=== PATIENT | male | born 1970 | race Caucasian/White ===

== ENCOUNTER 2018-11-20 16:04 | Inpatient (IN) ==
[2018-11-20] MEDS ORDERED: 0.9 % Sodium Chloride 1,000 ML IVC ONE (16:36)
[2018-11-20] MEDS ORDERED: Ondansetron 4 MG/2 ML VIAL IVP ONE (16:37)
--- NOTE | 2018-11-20 17:15 | Emergency Department Note ---
Disposition Clinical Impression: Elevated troponin, Dehydration, Hyponatremia, ROSIE (acute kidney injury) Disposition: Admitted As Inpatient Condition: Good Referrals: NONE,PCP [Primary Care Provider] - Forms: ED Satisfaction Letter Time of Disposition: 19:23 General Adult HPI - General Chief complaint: ED Nausea/Vomiting/Diarrhea Stated complaint: Stomach bug/ CP Time Seen by Provider: 11/20/18 16:35 Source: patient Mode of arrival: ambulatory Limitations: no limitations Nursing Notes Reviewed: Yes Vital Signs Reviewed: Yes - History of Present Illness HPI Narrative: Patient is a 48-year-old male with past medical history of atrial fibrillation with ablation now with a pacemaker/defibrillator and history of hypertension presents immersed department for 3 days of generalized body aches, chills as well as nonproductive cough. Patient states that he had episode of dry heaves today which was followed by episode of left-sided chest pain that he describes as a 4 out of 10 and aching. Pain Scale: 6 - Related Data Allergies Allergy/AdvReac Type Severity Reaction Status Date / Time No Known Allergies Allergy Verified 11/20/18 16:20 All systems ED: reviewed and negative except as stated. Review of Systems: As Per HPI Constitutional: Reports: chills, other (Body aches). Denies: fever Cardiovascular: Reports: chest pain, dyspnea on exertion. Denies: palpitations, edema, syncope Respiratory: Reports: cough, dyspnea. Denies: wheezes, hemoptysis Gastrointestinal: Reports: nausea. Denies: abdominal pain, vomiting, diarrhea, constipation Genitourinary: Denies: urgency, dysuria Musculoskeletal: Denies: back pain, neck pain Integumentary: Denies: rash Past Medical History - Past Medical History Attestation: Yes The following information was validated with the patient. Medical history: Reports: CHF, diabetes, hyperlipidemia, hypertension Psychiatric history: Reports: no psych history - Social History Smoking Status: Never smoker Smokeless Tobacco Status: No Alcohol use: Reports: none Drug use: Reports: none Physical Exam CONSTITUTIONAL: A&O X 3, in no apparent distress. Patient does look leads generally does not feel well this slightly clammy on exam. HEAD: Normocephalic; atraumatic EYES: PERRL, no scleral icterus NOSE: The nose is normal in appearance without rhinorrhea NECK: No JVD or distended neck veins RESP: Normal chest excursion with respiration; breath sounds clear and equal bilaterally; no wheezes, rhonchi, or rales CARD: Regular rhythm, without murmurs, rub or gallop ABD: Non-distended; non-tender, soft, without rigidity, rebound or guarding,no pulsatile mass CHEST: Pain on the left-sided chest. SKIN: Normal for age and race; warm and dry without diaphoresis ; no apparent lesions EXTREMITIES: Pulses are 2 plus and equal times 4 extremities, no peripheral edema or calf muscle pain - General Limitations: no limitations General appearance: alert, in distress Course Course Narrative: After further discussions with the patient he states that he is from [place] and he recently moved to [place], [place]. States as far as additional past medical history because he also has CHF but denies any history of any kidney disease. I discussed with the patient that his labs are showing signs of dehy dration as well as acute kidney injury. I discussed this troponin is also elevated at 0.09. States he continues to remain chest pain-free at this time. He got a liter of fluids and states his nausea has improved. I discussed with them that I spoke with the hospitalist on-call and he agreed to accept the patient for further management. Vital Signs Temperature 98.5 F 11/20/18 16:19 Pulse Rate 70 11/20/18 16:19 Respiratory Rate 18 11/20/18 16:19 Blood Pressure 95/68 11/20/18 16:19 O2 Sat by Pulse Oximetry 97 11/20/18 16:19 Temperature 98.5 F 11/20/18 16:33 Pulse Rate 70 11/20/18 16:44 Respiratory Rate 22 11/20/18 16:44 Blood Pressure 107/82 11/20/18 16:44 O2 Sat by Pulse Oximetry 92 11/20/18 16:44 Oxygen Delivery Oxygen Delivery Nasal Cannula Medical Decision Making - Medical Records Medical records reviewed: Yes I reviewed the patient's medical records. - Lab Data Lab results reviewed: Yes I reviewed the patient's lab results. Result diagrams: 11/20/18 16:46 11/20/18 16:46 Lab Results 11/20/18 11/20/18 Range/Units 16:46 16:46 WBC 12.8 H (4.3-11.1) K/mcL RBC 5.60 H (4.19-5.50) M/mcL Hgb 17.9 H (12.9-16.9) g/dL Hct 52.6 H (37.5-50.1) % MCV 93.9 (83.0-100.0) fL MCH 32.0 (28.0-33.3) pg MCHC 34.0 (31.6-35.5) g/dL RDW 12.7 (11.5-14.5) % Plt Count 122 L (140-400) K/mcL MPV 11.8 (9.4-12.4) fL Immature Gran % 0.6 (0-4) % Seg Neutrophils % 88.1 % Lymphocytes % 4.3 % Monocytes % 6.6 % Eosinophils % 0.0 % Basophils % 0.4 % Neutrophils # 11.3 H (1.6-8.9) K/mcL Lymphocytes # 0.6 (0.6-4.6) K/mcL Monocytes # 0.8 (0.0-1.3) K/mcL Eosinophils # 0.0 (0.0-0.6) K/mcL Basophils # 0.1 (0.0-0.2) K/mcL Platelet Estimate Slight Decrease L (Normal) Sodium 127 L (136-145) mEq/L Potassium 3.9 (3.5-5.1) mEq/L Chloride 94 L (98-107) mEq/L Carbon Dioxide 16 L (23-29) mEq/L BUN 47 H (6-20) mg/dL Creatinine 2.98 H (0.70-1.30) mg/dL Est GFR ( Amer) 28 L (> 60) Est GFR (Non-Af Amer) 23 L (> 60) BUN/Creatinine Ratio 16 (6-26) Glucose 135 H (70-105) mg/dL Calculated Osmolality 278 L (280-300) Calcium 9.6 (8.6-10.3) mg/dL Troponin I 0.09 H* (< 0.04) ng/mL - Radiology Data Radiology results reviewed: Yes I reviewed the patient's radiology results. Chest X-Ray 11/20/18 16:36 IMPRESSION: Cardiomegaly. No radiographic evidence of acute pulmonary disease. D/ / Malick Murphy / Malick Murphy Interpreting Provider: Malick Murphy - EKG Data EKG #1 EKG attestation: Yes I reviewed and interpreted this EKG. EKG results narrative: Patient's EKG done at 16:31 shows a paced rhythm at 70 bpm.
[2018-11-20] MEDS: Aspirin 81 MG TAB.CHEW PO SCH (17:36)
[2018-11-20 17:39] LABS: Basophils # 0.1 K/mcL (0.0-0.2); Basophils % 0.4 %; Hematocrit 52.6 % (37.5-50.1); Hemoglobin 17.9 g/dL (12.9-16.9); Immature Granulocytes % 0.6 % (0-4); Lymphocytes # 0.6 K/mcL (0.6-4.6); Lymphocytes % 4.3 %; Mean Corpuscular Volume 93.9 fL (83.0-100.0); Mean Platelet Volume 11.8 fL (9.4-12.4); Monocytes % 6.6 %; Neutrophils # 11.3 K/mcL (1.6-8.9); Platelet Count 122 K/mcL (140-400); Red Cell Distribution Width 12.7 % (11.5-14.5); Segmented Neutrophils % 88.1 %
[2018-11-20 17:40] LABS: Monocytes # 0.8 K/mcL (0.0-1.3)
[2018-11-20 17:56] LABS: Calcium 9.6 mg/dL (8.6-10.3); Potassium 3.9 mEq/L (3.5-5.1)
[2018-11-20 18:02] LABS: Troponin I 0.09 ng/mL (< 0.04)
[2018-11-20 18:11] LABS: Platelet Estimate Slight Decrease (Normal)
--- NOTE | 2018-11-20 18:37 | Emergency Department Note ---
Disposition Clinical Impression: Elevated troponin, Dehydration, Hyponatremia, ROSIE (acute kidney injury) Disposition: Admitted As Inpatient Condition: Good Forms: ED Satisfaction Letter General Adult HPI - General Chief complaint: ED Nausea/Vomiting/Diarrhea Stated complaint: Stomach bug/ CP Time Seen by Provider: 11/20/18 16:35 Source: patient Mode of arrival: ambulatory Limitations: no limitations - History of Present Illness Pain Scale: 6 - Related Data Allergies Allergy/AdvReac Type Severity Reaction Status Date / Time No Known Allergies Allergy Verified 11/20/18 16:20 Constitutional: Reports: chills, other (Body aches). Denies: fever Cardiovascular: Reports: chest pain, dyspnea on exertion. Denies: palpitations, edema, syncope Respiratory: Reports: cough, dyspnea. Denies: wheezes, hemoptysis Gastrointestinal: Reports: nausea. Denies: abdominal pain, vomiting, diarrhea, constipation Genitourinary: Denies: urgency, dysuria Musculoskeletal: Denies: back pain, neck pain Integumentary: Denies: rash Past Medical History - Past Medical History Medical history: Reports: CHF, diabetes, hyperlipidemia, hypertension Psychiatric history: Reports: no psych history - Social History Smoking Status: Never smoker Smokeless Tobacco Status: No Alcohol use: Reports: none Drug use: Reports: none Physical Exam - General Limitations: no limitations General appearance: alert, in distress Course Vital Signs Temperature 98.5 F 11/20/18 16:19 Pulse Rate 70 11/20/18 16:19 Respiratory Rate 18 11/20/18 16:19 Blood Pressure 95/68 11/20/18 16:19 O2 Sat by Pulse Oximetry 97 11/20/18 16:19 Temperature 98.5 F 11/20/18 16:33 Pulse Rate 70 11/20/18 16:44 Respiratory Rate 22 11/20/18 16:44 Blood Pressure 107/82 11/20/18 16:44 O2 Sat by Pulse Oximetry 92 11/20/18 16:44 Oxygen Delivery Oxygen Delivery Nasal Cannula Medical Decision Making - Lab Data Result diagrams: 11/20/18 16:46 11/20/18 16:46 Lab Results 11/20/18 11/20/18 Range/Units 16:46 16:46 WBC 12.8 H (4.3-11.1) K/mcL RBC 5.60 H (4.19-5.50) M/mcL Hgb 17.9 H (12.9-16.9) g/dL Hct 52.6 H (37.5-50.1) % MCV 93.9 (83.0-100.0) fL MCH 32.0 (28.0-33.3) pg MCHC 34.0 (31.6-35.5) g/dL RDW 12.7 (11.5-14.5) % Plt Count 122 L (140-400) K/mcL MPV 11.8 (9.4-12.4) fL Immature Gran % 0.6 (0-4) % Seg Neutrophils % 88.1 % Lymphocytes % 4.3 % Monocytes % 6.6 % Eosinophils % 0.0 % Basophils % 0.4 % Neutrophils # 11.3 H (1.6-8.9) K/mcL Lymphocytes # 0.6 (0.6-4.6) K/mcL Monocytes # 0.8 (0.0-1.3) K/mcL Eosinophils # 0.0 (0.0-0.6) K/mcL Basophils # 0.1 (0.0-0.2) K/mcL Platelet Estimate Slight Decrease L (Normal) Sodium 127 L (136-145) mEq/L Potassium 3.9 (3.5-5.1) mEq/L Chloride 94 L (98-107) mEq/L Carbon Dioxide 16 L (23-29) mEq/L BUN 47 H (6-20) mg/dL Creatinine 2.98 H (0.70-1.30) mg/dL Est GFR ( Amer) 28 L (> 60) Est GFR (Non-Af Amer) 23 L (> 60) BUN/Creatinine Ratio 16 (6-26) Glucose 135 H (70-105) mg/dL Calculated Osmolality 278 L (280-300) Calcium 9.6 (8.6-10.3) mg/dL Troponin I 0.09 H* (< 0.04) ng/mL Attestation Statement - Attestation Attestation: I examined this patient and my medical decision-making was reviewed with the Resident Physician. I agree with the documented findings, disposition and treatment plan as described except to the extent set forth below. 48 yearold male presents to the ED with complaints of NVD and has a history of CHF and cardaic ablation secondary to atrial fibrillation. Devi has new ROSIE and states that he does not aware of known kidney failure, devi also has has an elevated troponin and thrombocytopenia secondary to likely his CHF. Devi likely is moderatley dehydrated as evidence by his hyponatremia. WE will admit to medicine
[2018-11-20] MEDS ORDERED: GI Cocktail 40 ML EACH PO ONE (21:24)
[2018-11-20] MEDS ORDERED: Naloxone 0.4 MG/ML INJ IVP PRN (21:24)
--- NOTE | 2018-11-20 21:52 | Internal Med History&Physical ---
Date of Encounter: 11/20/18 Time of Encounter: 21:49 Internal Medicine - H&P: HPI Chief complaint: chest pain Admitted From: Home Plans for Post Hospital Care: Home History of present illness: Jorge Tineo Jr is a 48-year-old man who reports a history of hypertension, heart failure status post ICD and atrial fibrillation that required ablation currently on apixaban for anticoagulation who recently moved here from [place] and has been unable to establish follow-up healthcare. He comes into the emergency room complaining of 3 days of generalized body aches, nausea, vomiting and diarrhea. He has been unable to keep anything down over these past few days and has felt very fatigued and unable to take his medications. He states that today he now developed chest pain that was moderate in intensity but on the left side which gave him concern and so he came to the emergency room. He was found to have a s odium of 127, chloride 94, creatinine 2.98 and troponin elevation of 0.09. EKG showed paced rhythm with occasional PVCs. No prior records are available for review. He was given an antiemetic and fluids and is admitted for further observation. At this time he denies having chest pain and says he is just having some dry heaving. Past Med Surg Social Fam HX - Past Medical History Medical history: CHF, diabetes, hyperlipidemia, hypertension Psychiatric history: no psych history - Past Surgical History Additional surgical history: ablasion - Social History Smoking Status: Never smoker Smokeless Tobacco Status: No Alcohol use: none Drug use: none Internal Medicine - H&P: Meds Allergy/AdvReac Type Severity Reaction Status Date / Time No Known Allergies Allergy Verified 11/20/18 16:20 All Systems PM: A 10-system review of systems was performed and is negative for pertinent findings except as documented above in the HPI. Family history reviewed and found noncontributory. - Constitutional Vitals: Temp Pulse Resp BP Pulse Ox 98.2 F 67 18 116/78 94 11/20/18 21:45 11/20/18 21:45 11/20/18 21:45 11/20/18 21:45 11/20/18 21:45 Exam: Vitals: Reviewed General: Obese white man sitting up in bed in notable discomfort Skin: Warm and supple HEENT: Moist mucous membranes. No conjunctivae pallor. Neck: No lymphadenopathy. No JVD. No carotid bruits. No palpable thyroid. Chest: Normal thoracic expansion. Normal breath sounds. Clear to auscultation. Heart: Normal S1 & S2; rhythmic. No rubs or murmurs. Abdomen: oft and non-tender to palpation. No peritoneal reaction. Extremities: No clubbing, cyanosis. 1+ edema. No calf tenderness. Normal distal pulses. Neurological: Awake, alert and oriented to person, place and time. No focal deficits. Psych: Affect appropriate. Internal Med - H&P Results - Labs CBC & Chem 7: 11/20/18 16:46 11/20/18 16:46 Labs: Short CBC 11/20/18 Range/Units 16:46 WBC 12.8 H (4.3-11.1) K/mcL Hgb 17.9 H (12.9-16.9) g/dL Hct 52.6 H (37.5-50.1) % Plt Count 122 L (140-400) K/mcL Neutrophils # 11.3 H (1.6-8.9) K/mcL BMP 11/20/18 16:46 Sodium 127 L Potassium 3.9 Chloride 94 L Carbon Dioxide 16 L BUN 47 H Creatinine 2.98 H Glucose 135 H Calcium 9.6 Cardiac Enzymes 11/20/18 Range/Units 16:46 Troponin I 0.09 H* (< 0.04) ng/mL - Impressions ITS Impressions Chest X-Ray 11/20/18 16:36 IMPRESSION: Cardiomegaly. No radiographic evidence of acute pulmonary disease. D/ / Malick Murphy / Malick Murphy Interpreting Provider: Malick Murphy - Assessment and plan (1) ROSIE (acute kidney injury) Current Visit: Yes Status: Acute Assessment and plan: Secondary to volume loss from vomiting and diarrhea as well as reduced intake. Will replete with IV NS overnight given the hyponatremia/hypochloremia that is hypovolemic in origin presumably and recheck lytes in the morning. Hold ACEI/diuretics for now. (2) Dehydration Current Visit: Yes Status: Acute Assessment and plan: Noted on clinical exam and precursor to ROSIE. Volume resuscitation as stated above. If he has a diarrheal recurrence, will send stool studies. Anti-emetics prn ordered. (3) Elevated troponin Current Visit: Yes Status: Acute Assessment and plan: Posisbly secondary to demand, dehydration and ROSIE. Currently without overt signs of ischemia. His chest discomfort resolved without intervention, his EKG is not diagnostic and he currently remains comfortable. Will continue to trend troponins overnight, monitor on telemetry and reassess clinical condition. (4) Atrial fibrillation Current Visit: Yes Status: Acute Assessment and plan: S/p ablation. Remains on apixaban for anticoagulation. Currently rate controlle d. Monitor on telemetry. Qualifiers: Atrial fibrillation type: paroxysmal Qualified Code(s): I48.0 - Paroxysmal atrial fibrillation (5) Hypertension Current Visit: Yes Status: Acute Assessment and plan: Adequate values at this time. Will resume oral medications in the morning currently holding his diuretics/ACEI due to ROSIE. Qualifiers: Hypertension type: essential hypertension Qualified Code(s): I10 - Essential (primary) hypertension (6) Hyperuricemia Current Visit: Yes Status: Acute Assessment and plan: Deduced based on his taking colchicine and allopurinol as reviewed on his medication list. Will check level in the morning. Currently asymptomatic. (7) Heart failure Current Visit: Yes Status: Acute Assessment and plan: Reported and has an AICD. No signs of acute decompensation at this time. Will check TTE to assess EF and morphology. Resume BB/ACEI when feasible. Qualifiers: Heart failure type: unspecified Heart failure chronicity: chronic Qualified Code(s): I50.9 - Heart failure, unspecified - Time Spent With Patient Total time spent is greater than 50% in coordination of care (as documented) at patient's floor/unit and/or counseling patient: Greater than 35 minutes
[2018-11-20] MEDS: 0.9 % Sodium Chloride 1,000 ML IVC SCH (22:03)
[2018-11-20] MEDS: traMADol 50 MG TABLET PO PRN (22:03)
[2018-11-20] MEDS: Ondansetron 4 MG/2 ML VIAL IVP PRN (22:08)
[2018-11-21 01:33] LABS: Hematocrit 45.5 % (37.5-50.1); Hemoglobin 15.9 g/dL (12.9-16.9); Mean Corpuscular HGB Conc 34.9 g/dL (31.6-35.5); Mean Corpuscular Hemoglobin 32.6 pg (28.0-33.3); Mean Corpuscular Volume 93.4 fL (83.0-100.0); Mean Platelet Volume 11.9 fL (9.4-12.4); Platelet Count 99 K/mcL (140-400); Red Blood Count 4.87 M/mcL (4.19-5.50); Red Cell Distribution Width 13.1 % (11.5-14.5)
[2018-11-21 01:45] LABS: Heparin anti-factor XA UFH 0.07 IU/mL (0.30-0.70)
[2018-11-21 01:46] LABS: INR 1.1; Prothrombin Time 12.8 Seconds (9.4-12.1)
[2018-11-21 01:48] LABS: Activated Partial Thrombo Time 35.5 Seconds (26.0-36.0)
[2018-11-21 01:57] LABS: Calcium 8.7 mg/dL (8.6-10.3); Potassium 3.8 mEq/L (3.5-5.1)
[2018-11-21 02:11] LABS: Thyroid Stimulating Hormone 3.351 mcIU/mL (0.340-5.600)
[2018-11-21 02:33] LABS: Basophils # 0.2 K/mcL (0.0-0.2); Lymphocytes # 0.8 K/mcL (0.6-4.6); Monocytes # 0.3 K/mcL (0.0-1.3); Neutrophils # 6.6 K/mcL (1.6-8.9); Platelet Estimate Decreased (Normal)
[2018-11-21] MEDS: 0.9 % Sodium Chloride 1,000 ML IVC SCH (03:09)
[2018-11-21] MEDS: Acetaminophen 325 MG TABLET PO PRN ×2 (03:13→15:39)
[2018-11-21 05:27] LABS: Bilirubin,Urine Small (Negative); Blood,Urine Large (Negative); Clarity,Urine Cloudy (Clear); Color,Urine Dark Yellow (Yellow); Glucose,Urine (UA) Normal (Normal); Ketones,Urine Trace mg/dL (Negative); Leukocyte Esterase,Urine Negative (Negative); Nitrite,Urine Negative (Negative); PH,Urine 5.5 pH Units (5.0-8.0); Protein,Urine 100 mg/dL (Neg-Trace); Specific Gravity,Urine 1.015 (1.010-1.025); Urobilinogen,Urine Normal (Normal)
[2018-11-21 05:29] LABS: Bacteria,Urine None Seen per hpf (None-Few); Squamous Epithelial Cell,Urine Many per lpf (None-Few); WBC,Urine 15-30 per hpf (0-3)
[2018-11-21 05:39] LABS: RBC,Urine 30-50 per hpf (0-3)
[2018-11-21] MEDS ORDERED: Perflutren Lipid Microsphere 1.3 ML in 0.9 % Sodium Chloride 8.7 ML IVP ONE (07:11)
[2018-11-21] MEDS: traMADol 50 MG TABLET PO PRN ×2 (07:58→20:13)
[2018-11-21] MEDS: Apixaban 5 MG TABLET PO SCH ×2 (07:58→20:13)
[2018-11-21] MEDS: Aspirin 81 MG TAB.CHEW PO SCH (07:59)
--- NOTE | 2018-11-21 12:42 | Nephrology Consult Note ---
Addendum entered and electronically signed by Julian Coles MD 11/21/18 20:42: I examined this patient and my medical decision-making was reviewed with the Medical Student. I agree with the documented findings, disposition and treatment plan as described except to the extent set forth below. Patient in with ROSIE with unknown baseline likely related to prerenal azotemia vs. ATN from dehydration from gastroenteritis. The PMH, medications, FH, SH, PE and ROS as documented below. He was A&Ox 3 he had no edema and had no abdominal pain. A&P discussed and as below. ROSIE - need old labs. Await renal ultrasound. Continue with MIV. Elevated troponin per the primary team. Original Note: Date of Encounter: 11/21/18 Time of Encounter: 12:45 Assessment and Plan (1) ROSIE (acute kidney injury) Current Visit: Yes Status: Acute Acute kidney injury possibly secondary to dehydration with Creatinine 2.59 on 11/21/18 (from 2.98 on 11/20/18 upon admission), GFR 27 on 11/21/18 (from 23 on 11/20/18 upon admission), BUN 52 on 11/21/18 (from 47 on 11/20/18 upon admission), bicarb 17 11/21/18 (from 16 11/20/18 on admission). Repeat urinalysis in morning, add urine sodium and creatinine; renal ultrasound pending per hospitalist orders to rule out post-renal causes. (2) Dehydration Current Visit: Yes Status: Acute Patient noted to be dehydrated on clinical examination upon admission and has received 2L of IVF. Urine output noted at 50mL since admission. Continue monitoring I&O and renal function (3) Elevated troponin Current Visit: Yes Status: Acute Troponin trending 0.09->0.06->0.05 (4) Heart failure Current Visit: Yes Status: Acute Qualifiers: Heart failure type: unspecified Heart failure chronicity: chronic Qualified Code(s): I50.9 - Heart failure, unspecified (5) Hypertension Current Visit: Yes Status: Acute Patient noted to have PMH of HTN. Blood pressure noted to be 94/62 at 1042 11/21/18 s/p 2L IVF. Hospitalist holding FAVIOLA-I and diuretic due to ROSIE Qualifiers: Hypertension type: essential hypertension Qualified Code(s): I10 - Essential (primary) hypertension (6) Hyperuricemia Current Visit: Yes Status: Acute Uric acid noted at 13.0 on 11/21/18. Hospitalist is holding colchicine and allopurinol due to ROSIE/dehydration. (7) Hyponatremia Current Visit: Yes Status: Acute Na noted to be 129 on 11/21/18 s/p 2L NS improved from 127 upon admission on 11/20/18. (8) Atrial fibrillation Current Visit: Yes Status: Acute Qualifiers: Atrial fibrillation type: paroxysmal Qualified Code(s): I48.0 - Paroxysmal atrial fibrillation (9) Metabolic acidosis Current Visit: Yes Status: Acute Bicarb 17 on 11/21/18, increased from 16 on 11/20/18 upon admission, possibly due to ROSIE/dehydration. History of Present Illness - Reason for Consult Consult date: 11/21/18 Acute Kidney Injury Requesting physician: Margareth Bhatt - Chief Complaint Chest Pain - History of Present Illness Mr. Tineo is a 48 year old male presenting on hospital day 2 due to "chest pain" with PMH of CHF s/p AICD placement, diabetes, HLD, AFib s/p ablation, and HTN. Patient notes that he has had gastrointestinal symptoms of nausea w/ loss of appetite, vomiting and diarrhea along with fever, chills and body aches since Wednesday11/18/18, and when he started to have chest pain on Wednesday11/20/18 due to coughing from GI symptoms, he came to ED due to previous cardiac history. Patient has a previous renal history of kidney stones when he drank alcohol but "no other kidney problems as far as I know". He has noted inability to keep food or drink down for past few days and unable to take his medicine. He notes loss of appetite and that he felt "very dehydrated" when he was admitted, and noted first urination in "a long time" today (50mL void). Patient has received 2L of NS. Past Med Surg Social Fam HX - Past Medical History Medical history: CHF, diabetes, hyperlipidemia, hypertension Psychiatric history: no psych history - Past Surgical History Additional surgical history: ablation - Social History Smoking Status: Former smoker Smokeless Tobacco Status: No Alcohol use: none Drug use: none Occupational status: disabled - Family History Father Hx Family Cardiac Disorders: Yes (HTN, CABG, CAD) Hx Family Respiratory Disorders: Yes (SHAWN) Hx Family Endocrine Disorder: Yes (DM) Mother Hx Family Cardiac Disorders: Yes (HTN, AFib) Hx Family Musculoskeletal Disorders: Yes (Gout) Medications and Allergies Apixaban [Eliquis] 5 mg PO BID 11/20/18 [History] Carvedilol [Coreg] 25 mg PO BID 11/20/18 [History] Furosemide [Lasix] 40 mg DAILY 11/20/18 [History] Isosorbide MONOnitrate [Isosorbide Mononitrate ER] 60 mg DAILY 11/20/18 [History] Lovastatin 40 mg PO DAILY 11/20/18 [History] Metformin HCl [Glucophage] 1,000 mg PO BID 11/20/18 [History] Sacubitril/Valsartan 24/26 mg [Entresto 24 mg-26 mg Tablet] 1 tab PO BID [History] Spironolactone 25 mg PO DAILY 11/20/18 [History] Aspirin [Adult Aspirin Regimen] 81 mg PO DAILY 11/21/18 [History] Colchicine [Colcrys] 0.6 mg PO DAILY PRN 11/21/18 [History] Allergy/AdvReac Type Severity Reaction Status Date / Time No Known Allergies Allergy Verified 11/20/18 16:20 Review of Systems Constitutional: chills, fever(s) Cardiovascular: chest pain, no palpitations Gastrointestinal: abdominal pain, diarrhea, nausea, vomiting Genitourinary Male: no urinary frequency, no urinary hesitancy Exam - Vital Signs Vital signs: Initial Vital Signs Temp Pulse Resp BP Pulse Ox 98.5 F 70 18 95/68 97 11/20/18 16:19 11/20/18 16:19 11/20/18 16:19 11/20/18 16:19 11/20/18 16:19 Vital Signs - Last 8 Hours Temp Pulse Resp BP Pulse Ox 11/21/18 10:42 98.9 F 71 24 94/62 95 11/21/18 06:46 97.9 F 70 22 118/72 97 11/21/18 05:06 99 F 70 18 128/77 95 Intake and Output 11/20/18 11/21/18 11/21/18 23:59 07:59 15:59 Intake Total 1000 / 1000 1000 / 1000 Output Total 50 / 50 Balance 1000 / 1000 950 / 950 Intake: IV Fluids 1000 / 1000 1000 / 1000 0.9 % Sodium Chloride 1,000 ML 1000 / 1000 1000 / 1000 @ 200 mls/hr IVC .Q5H JAMILA Rx#: [id number] Output: Urine 50 / 50 Other: Weight 139.706 kg - General Appearance Exam: General: AAO, notably uncomfortable at time of exam HEENT: mucus membranes moist, no conjunctival pallor CV: RRR, no murmurs Resp: LCTAB, no accessory muscle use noted GI: soft and non-tender, no distension, no guarding. Bowel sounds present. Neuro: A&Ox3. No focal deficits Results - Lab Results 11/21/18 00:56 11/21/18 00:56 Most recent lab results Calcium 8.7 mg/dL (8.6-10.3) 11/21/18 00:56 Consult Discharge Plan - Plan Referrals: NONE,PCP [Primary Care Provider] -
--- NOTE | 2018-11-21 14:15 | Internal Med Progress Note ---
Hospitalist Progress Note - Encounter Date of Encounter: 11/21/18 Time of Encounter: 10:30 - Subjective Interval History: Patient is sitting up in chair. He is doing better as compared to yesterday. He continues to feel weak especially on attempted ambulation though He does state that he still continues to have diarrhea which overall is getting better in terms of the number of episodes but in terms of loose stools he is not getting any better. - Exam Vitals: Temp Pulse Resp BP Pulse Ox 98.9 F 71 24 94/62 95 11/21/18 10:42 11/21/18 10:42 11/21/18 10:42 11/21/18 10:42 11/21/18 10:42 Exam: GENERAL: Alert, no distress, cooperative EYES: PERRLA, EOMI EARS: External ears normal, canals clear OROPHARYNX: Lips, mucosa, and tongue normal. Teeth and gums normal. Oropharynx normal. NECK: No jugulovenous distention, No carotid bruits, Carotid pulse normal contour, Supple LUNGS: Lungs clear to auscultation, Good diaphragmatic excursion CARDIAC: Normal S1 and S2; no rubs, murmurs, or gallops ABDOMEN: Abdomen soft, non-tender, BS normal, No masses or organomegaly EXTREMITIES: Extremities normal, no deformities, edema, clubbing or skin discoloration. Good capillary refill., No ulcers NEURO: Gait not tested. Reflexes normal and symmetric. Sensation grossly intact, Cranial nerves II-XII intact PULSES: 2+ radial, 2+ carotid Rest of the exam is non contributory - Assessment and Plan (1) Elevated troponin Current Visit: Yes Status: Acute Assessment and Plan: Posisbly secondary to demand, dehydration and ROSIE. Currently without overt signs of ischemia. His chest discomfort resolved without intervention, his EKG is not diagnostic and he currently remains comfortable. Will continue to trend troponins overnight, monitor on telemetry and reassess clinical condition. 11/21-troponin has trended down. Denies any chest pain at this point. Continue to observe. Most likely from dehydration and acute renal failure. (2) Dehydration Current Visit: Yes Status: Acute Assessment and Plan: Noted on clinical exam and precursor to ROSIE. Volume resuscitation as stated above. If he has a diarrheal recurrence, will send stool studies. Anti-emetics prn ordered. 11/21 patient's dehydration is clinically improving. Volume resuscitation is helping and his renal function is improving. His diarrhea is also getting better in terms of volume and frequency but not so much in terms of content. I believe this is all secondary to a viral gastroenteritis but the patient is currently going through. We will continue to monitor closely (3) ROSIE (acute kidney injury) Current Visit: Yes Status: Acute Assessment and Plan: Secondary to volume loss from vomiting and diarrhea as well as reduced intake. Will replete with IV NS overnight given the hyponatremia/hypochloremia that is hypovolemic in origin presumably and recheck lytes in the morning. Hold ACEI/diuretics for now. 11/21-patient had severe acute renal failure on admission. He is now slowly improving as well as creatinine is concerned. We will consult nephrology for further input. He was on multiple medications can affect his kidneys including entrust her on faviola inhibitors as well as diuretics. All of these are on hold and his only blood pressure medication as a beta agustin. Continue to monitor creatinine. (4) Atrial fibrillation Current Visit: Yes Status: Acute Assessment and Plan: S/p ablation. Remains on apixaban for anticoagulation. Currently rate controlled. Monitor on telemetry. 11/21-rate controlled. Continue apixaban (5) Hypertension Current Visit: Yes Status: Acute Assessment and Plan: Adequate values at this time. Will resume oral medications in the morning currently holding his diuretics/ACEI due to ROSIE. (6) Hyperuricemia Current Visit: Yes Status: Acute (7) Heart failure Current Visit: Yes Status: Acute Assessment and Plan: Reported and has an AICD. No signs of acute decompensation at this time. Will check TTE to assess EF and morphology. Resume BB/ACEI when feasible. 11/21-awaiting final report of echo to better quantify the type of heart failure. Beta agustin has been resumed. FAVIOLA inhibitor on hold given acute renal failure (8) Diarrhea Current Visit: Yes Status: Acute Assessment and Plan: Most likely an acute viral gastroenteritis. Frequency of stooling without improving although the consistency is not. Continue hydration - Time Spent with Patient Total time spent is greater than 50% in coordination of care (as documented) at patient's floor/unit and/or counseling patient: 25 - 35 minutes Plan of Care Discussed with: patient Internal Medicine: Result - Labs CBC & Chem 7: 11/21/18 00:56 11/21/18 00:56 Labs: Short CBC 11/20/18 11/21/18 Range/Units 16:46 00:56 WBC 12.8 H 7.8 (4.3-11.1) K/mcL Hgb 17.9 H 15.9 D (12.9-16.9) g/dL Hct 52.6 H 45.5 (37.5-50.1) % Plt Count 122 L 99 L (140-400) K/mcL Neutrophils # 11.3 H 6.6 (1.6-8.9) K/mcL BMP 11/20/18 11/21/18 16:46 00:56 Sodium 127 L 129 L Potassium 3.9 3.8 Chloride 94 L 100 Carbon Dioxide 16 L 17 L BUN 47 H 52 H Creatinine 2.98 H 2.59 H Glucose 135 H 106 H Calcium 9.6 8.7 Cardiac Enzymes 11/20/18 11/21/18 11/21/18 Range/Units 16:46 00:56 06:31 Troponin I 0.09 H* 0.06 H* 0.05 H* (< 0.04) ng/mL Urine 11/21/18 Range/Units 05:00 Urine Color Dark Yellow (Yellow) Urine Clarity Cloudy A (Clear) Urine pH 5.5 (5.0-8.0) pH Units Ur Specific [place] 1.015 (1.010-1.025) Urine Protein 100 H (Neg-Trace) mg/dL Urine Glucose (UA) Normal (Normal) mg/dL - ABG Interpretation ABG results: PT/INR, D-dimer PT 12.8 Seconds (9.4-12.1) H 11/21/18 00:56 - Impressions Impressions Chest X-Ray 11/20/18 16:36 IMPRESSION: Cardiomegaly. No radiographic evidence of acute pulmonary disease. D/ / Malick Murphy / Malick Murphy Interpreting Provider: Malick Murphy Consult Discharge Plan - Plan Referrals: NONE,PCP [Primary Care Provider] - ___ (4) Atrial fibrillation Qualifiers: Atrial fibrillation type: paroxysmal Qualified Code(s): I48.0 - Paroxysmal atrial fibrillation (5) Hypertension Qualifiers: Hypertension type: essential hypertension Qualified Code(s): I10 - Essential (primary) hypertension (7) Heart failure Qualifiers: Heart failure type: unspecified Heart failure chronicity: chronic Qualified Code(s): I50.9 - Heart failure, unspecified (8) Diarrhea Qualifiers: Diarrhea type: infectious Qualified Code(s): A09 - Infectious gastroenteritis and colitis, unspecified
[2018-11-21 14:49] LABS: Estimated Average Glucose 126 mg/dl
--- NOTE | 2018-11-21 15:15 | Electrocardiograph Report ---
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
[2018-11-21] MEDS: Ondansetron 4 MG/2 ML VIAL IVP PRN (15:40)
[2018-11-22] MEDS: traMADol 50 MG TABLET PO PRN ×3 (03:27→19:47)
[2018-11-22] MEDS: Acetaminophen 325 MG TABLET PO PRN (03:27)
[2018-11-22] MEDS ORDERED: 0.9 % Sodium Chloride 500 ML IVC ONE (04:31)
[2018-11-22] MEDS ORDERED: 0.9 % Sodium Chloride 500 ML ONE (04:32)
[2018-11-22] MEDS ORDERED: 0.9 % Sodium Chloride 1,000 ML IVC ONE ×2 (05:52→11:00)
[2018-11-22 07:10] LABS: Chol/HDL Ratio 21.8 (0-4.9)
[2018-11-22 08:10] LABS: Acinetobacter baumannii by PCR Not Detected (Not Detect); Candida albicans by PCR Not Detected (Not Detect); Candida glabrata by PCR Not Detected (Not Detect); Candida krusei by PCR Not Detected (Not Detect); Candida parapsilosis by PCR Not Detected (Not Detect); Candida tropicalis by PCR Not Detected (Not Detect); Enterobacter cloacae Cmplx PCR Not Detected (Not Detect); Enterobacteriaceae by PCR Not Detected (Not Detect); Enterococcus by PCR Not Detected (Not Detect); Escherichia coli by PCR Not Detected (Not Detect); Klebsiella oxytoca by PCR Not Detected (Not Detect); Klebsiella pneumoniae by PCR Not Detected (Not Detect); Proteus by PCR Not Detected (Not Detect); Pseudomonas aeruginosa by PCR Not Detected (Not Detect); Serratia marcescens by PCR Not Detected (Not Detect); Staphylococcus aureus by PCR DETECTED (Not Detect); Staphylococcus by PCR Not Detected (Not Detect); Streptococcus agalactiae(B)PCR Not Detected (Not Detect); Streptococcus by PCR Not Detected (Not Detect); Streptococcus pneumoniae PCR Not Detected (Not Detect); Streptococcus pyogenes (A) PCR Not Detected (Not Detect); mecA Methicillin-Resist Gene Not Detected (Not Detect)
[2018-11-22] MEDS ORDERED: 0.9 % Sodium Chloride 1,000 ML ONE ×2 (08:50→11:25)
[2018-11-22] MEDS: Aspirin 81 MG TAB.CHEW PO SCH (08:55)
[2018-11-22] MEDS: Apixaban 5 MG TABLET PO SCH ×2 (08:55→19:43)
[2018-11-22] MEDS ORDERED: ceFAZolin 1,000 MG in Water for inj. (sterile) 20 ML 10 ML IVP SCH (09:00)
[2018-11-22] MEDS ORDERED: ceFAZolin 1,000 MG in Water for inj. (sterile) 20 ML 10 ML IVP ONE (09:20)
[2018-11-22 09:25] LABS: Basophils % 0.1 %; Hematocrit 39.5 % (37.5-50.1); Hemoglobin 13.5 g/dL (12.9-16.9); Immature Granulocytes % 0.4 % (0-4); Lymphocytes # 0.5 K/mcL (0.6-4.6); Lymphocytes % 6.3 %; Mean Corpuscular HGB Conc 34.2 g/dL (31.6-35.5); Mean Corpuscular Hemoglobin 32.6 pg (28.0-33.3); Mean Corpuscular Volume 95.4 fL (83.0-100.0); Mean Platelet Volume 12.3 fL (9.4-12.4); Monocytes # 0.8 K/mcL (0.0-1.3); Monocytes % 10.3 %; Neutrophils # 6.7 K/mcL (1.6-8.9); Red Blood Count 4.14 M/mcL (4.19-5.50); Red Cell Distribution Width 12.9 % (11.5-14.5); Segmented Neutrophils % 82.9 %
[2018-11-22 09:26] LABS: Platelet Count 74 K/mcL (140-400)
[2018-11-22] MEDS ORDERED: Aminoglycoside Consult 1 EACH MC ONE (09:30)
[2018-11-22 09:47] LABS: Calcium 8.1 mg/dL (8.6-10.3); Phosphorous 3.8 mg/dL (2.7-4.5)
[2018-11-22 09:50] LABS: Troponin I 0.05 ng/mL (< 0.04)
--- NOTE | 2018-11-22 10:03 | Internal Med Progress Note ---
Hospitalist Progress Note - Encounter Date of Encounter: 11/22/18 Time of Encounter: 10:00 - Subjective Interval History: His diarrhea is better today but he had a fever yesterday of 102, he has positive blood cultures and overall feels very weak. He does complain of right shoulder hurting him , thinks this is his gout and wants a cortisone shot. He a lso complains of acid reflux and would like something for it - Exam Vitals: Temp Pulse Resp BP Pulse Ox 98.9 F 65 18 103/66 93 11/22/18 08:35 11/22/18 09:58 11/22/18 09:58 11/22/18 09:58 11/22/18 09:58 Exam: GENERAL: Alert, moderate distress, appears uncomfortable, obese male EARS: External ears normal, canals clear OROPHARYNX: Lips, mucosa, and tongue normal. Poor dentition but no swelling around the jaws or gums. Pharynx looks normal NECK: No jugulovenous distention, No carotid bruits, Carotid pulse normal contour, Supple LUNGS: Lungs clear to auscultation, Good diaphragmatic excursion CARDIAC: Normal S1 and S2; no rubs, murmurs, or gallops ABDOMEN: Abdomen soft, non-tender, BS normal, No masses or organomegaly EXTREMITIES: Cracked feet no deformities, 1+ edema, clubbing or skin discoloration. Good capillary refill., No ulcers, right shoulder tenderness to palpation no surrounding erythema or swelling. NEURO: Gait not tested. Reflexes normal and symmetric. Sensation grossly intact, Cranial nerves II-XII intact PULSES: 2+ radial, 2+ carotid Rest of the exam is non contributory - Assessment and Plan (1) Sepsis associated hypotension Current Visit: Yes Status: Acute Assessment and Plan: Patient's blood cultures are +2 out of 2 for staph aureus not MRSA. The source is not identified at this point. 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 His last recorded blood pressure was in the 76/51 before he was evaluated by me early this morning. He was receiving a second fluid bolus at this time. his blood pre ssure has already responded and he is up to 103 systolic. He will receive a total of 3 L of fluid bolus . I have also started him on Ancef given the staph aureus in blood. The source is unclear at this point he does have an pacemaker/ICD in place but the site does not look tender to palpation. He does not endorse any chills the only other symptom that he has been having his diarrhea which according to him is responding and doing better in terms of frequency. He denies any abdominal pain and is not tender to palpation He does complain of some heartburn and we are prescribing him Tums as well as a PPI. I will check a 2-D echo for any vegetations given he is 2 out of 2 blood cultures positive and consult infectious disease. His lactic acid level was 1.1 but this was done after the first liter of bolus had already been given. We will continue to monitor him very closely. (2) Elevated troponin Current Visit: Yes Status: Acute Assessment and Plan: Posisbly secondary to demand, dehydration and ROSIE. Currently without overt signs of ischemia. His chest discomfort resolved without intervention, his EKG is not diagnostic and he currently remains comfortable. Will continue to trend troponins overnight, monitor on telemetry and reassess clinical condition. 11/21-troponin has trended down. Denies any chest pain at this point. Continue to observe. Most likely from dehydration and acute renal failure. 11/22-troponin repeated again due to hypotension and again is trending down. Most likely due to dehydration and acute renal failure. Now also could be infected because of his sepsis (3) Dehydration Current Visit: Yes Status: Acute Assessment and Plan: Noted on clinical exam and precursor to ROSIE. Volume resuscitation as stated above. If he has a diarrheal recurrence, will send stool studies. Anti-emetics prn ordered. 11/21 patient's dehydration is clinically improving. Volume resuscitation is helping and his renal function is improving. His diarrhea is also getting better in terms of volume and frequency but not so much in terms of content. I believe this is all secondary to a viral gastroenteritis but the patient is currently going through. We will continue to monitor closely 11/22-patient's diarrhea is improving but now he has sepsis most likely due to gram-positive cocci staph aureus. Continue aggressive hydration, antibiotics and continue to assess serial BMP (4) ROSIE (acute kidney injury) Current Visit: Yes Status: Acute Assessment and Plan: Secondary to volume loss from vomiting and diarrhea as well as reduced intake. Will replete with IV NS overnight given the hyponatremia/hypochloremia that is hypovolemic in origin presumably and recheck lytes in the morning. Hold ACEI/diuretics for now. 11/21-patient had severe acute renal failure on admission. He is now slowly improving as well as creatinine is concerned. We will consult nephrology for further input. He was on multiple medications can affect his kidneys including entrust her on faviola inhibitors as well as diuretics. All of these are on hold and his only blood pressure medication as a beta agustin. Continue to monitor creatinine. 11/22-his renal function is now worse at 3.92. Nephrology is on consult and I will discuss with them. He may need a biopsy especially considering that now he is also septic with bacteremia. I will await their decision. For now will continue for hydration (5) Atrial fibrillation Current Visit: Yes Status: Acute Assessment and Plan: S/p ablation. Remains on apixaban for anticoagulation. Currently rate co ntrolled. Monitor on telemetry. 11/21-rate controlled. Continue apixaban 11/22-rate control/paced. Continue apixaban (6) Hypertension Current Visit: Yes Status: Acute Assessment and Plan: Adequate values at this time. Will resume oral medications in the morning currently holding his diuretics/ACEI due to ROSIE. 11/22-right now hypotensive most likely from sepsis. Responding to fluids. We will continue to assess (7) Hyperuricemia Current Visit: Yes Status: Acute Assessment and Plan: Deduced based on his taking colchicine and allopurinol as reviewed on his medication list. Will check level in the morning. Currently asymptomatic. 11/22-patient has been complaining of right shoulder pain. Given his elevated uric acid and will try a steroid dose today. I will also check a right shoulder x-ray (8) Heart failure Current Visit: Yes Status: Acute Assessment and Plan: Reported and has an AICD. No signs of acute decompensation at this time. Will check TTE to assess EF and morphology. Resume BB/ACEI when feasible. 11/21-awaiting final report of echo to better quantify the type of heart failure. Beta agustin has been resumed. FAVIOLA inhibitor on hold given acute renal failure 11/22-LVEF is 35-40% on last echo with moderate global left ventricular systolic dysfunction. He also has mild concentric left ventricular hypertrophy. He does have normal right ventricular structure and function and no significant valvular dysfunction. We will be cautious with hydration but right now he needs it due his sepsis (9) Diarrhea Current Visit: Yes Status: Acute Assessment and Plan: Most likely an acute viral gastroenteritis. Frequency of stooling without improving although the consistency is not. Continue hydration 11/22-consistency is the same but frequency is improving. Continue hydration DVT Prophylaxis: Already anticoagulated - Time Spent with Patient Total time spent is greater than 50% in coordination of care (as documented) at patient's floor/unit and/or counseling patient: 50 minutes Plan of Care Discussed with: patient Internal Medicine: Result - Labs CBC & Chem 7: 11/22/18 09:14 11/22/18 09:14 Labs: Short CBC 11/22/18 Range/Units 09:14 WBC 8.1 (4.3-11.1) K/mcL Hgb 13.5 D (12.9-16.9) g/dL Hct 39.5 (37.5-50.1) % Plt Count 74 L (140-400) K/mcL Neutrophils # 6.7 (1.6-8.9) K/mcL BMP 11/22/18 09:14 Sodium 126 L Potassium 4.0 Chloride 98 Carbon Dioxide 15 L BUN 73 H Creatinine 3.92 H Glucose 131 H Calcium 8.1 L Cardiac Enzymes 11/22/18 Range/Units 09:14 Troponin I 0.05 H* (< 0.04) ng/mL Liver Function 11/22/18 Range/Units 09:14 Albumin 3.0 L (3.5-5.7) g/dL - ABG Interpretation ABG results: PT/INR, D-dimer PT 12.8 Seconds (9.4-12.1) H 11/21/18 00:56 - Impressions Impressions Echocardiogram 11/20/18 21:08 Impressions: LVEF 35-40%. Moderate global left ventricular systolic dysfunction. Mild concentric left ventricular hypertrophy. Indeterminate diastolic function. Moderately dilated left atrium. Normal right ventricular structure and function. No significant valvular dysfunction. No pulmonary hypertension. Left Ventricular Wall Motion: Rest Echo Findings The apex, apical inferior, mid inferior, basal inferior, apical anterior, mid anterior, basal anterior, apical septal, mid inferior septal, basal inferior septal, apical lateral, mid anterior lateral, basal anterior lateral, mid anterior septal, mid inferior lateral, basal anterior septal and basal inferior lateral brand were hypokinetic. Findings: Study Quality * Technically adequate exam. ECG Findings * Paced rhythm. Left Ventricle * LVEF 35-40%. * Normal LV chamber size. * Mild concentric left ventricular hypertrophy. * Moderate global left ventricular systolic dysfunction. * Indeterminate diastolic function. * Definity echo contrast was not used. Right Ventricle * Normal right ventricular structure and function. Left Atrium * Moderately dilated left atrium. Right Atrium * Normal right atrial size. Interatrial Septum * Interatrial septum not well evaluated. Aortic Valve * Aortic valve not well visualized. * No aortic stenosis. * Trace aortic regurgitation. Mitral Valve * Mitral valve not well visualized. * No mitral stenosis. * No mitral regurgitation. Tricuspid Valve * Tricuspid valve not well visualized. * No tricuspid stenosis. * Trace tricuspid regurgitation. * Estimated RVSP is 32 mmHg. * Estimated RA pressure is 3 mmHg. * No pulmonary hypertension. Pulmonic Valve * Pulmonic valve is not well visualized. * No pulmonic stenosis. * No pulmonic regurgitation. Aorta * Normally sized aortic root. Pericardium * The pericardium appears normal. IVC * Normal IVC dimensions and inspiratory collapse. Device lead * A device lead was visualized in the right atrium and right ventricle. Retroperitoneum Ultrasound 11/21/18 16:00 IMPRESSION: Normal sonographic appearance of the kidneys. Nondiagnostic evaluation of the urinary bladder due to decompression. D/ / 11/21/2018 19:21:47 Herb Whipple MD / arvin Interpreting Provider: Herb Whipple MD Consult Discharge Plan - Plan Referrals: NONE,PCP [Primary Care Provider] - (5) Atrial fibrillation Qualifiers: Atrial fibrillation type: paroxysmal Qualified Code(s): I48.0 - Paroxysmal atrial fibrillation (6) Hypertension Qualifiers: Hypertension type: essential hypertension Qualified Code(s): I10 - Essential (primary) hypertension (8) Heart failure Qualifiers: Heart failure type: unspecified Heart failure chronicity: chronic Qualified Code(s): I50.9 - Heart failure, unspecified (9) Diarrhea Qualifiers: Diarrhea type: infectious Qualified Code(s): A09 - Infectious gastroenteritis and colitis, unspecified
[2018-11-22] MEDS ORDERED: predniSONE 20 MG TABLET PO ONE (10:18)
--- NOTE | 2018-11-22 10:40 | Nephrology Progress Note ---
Date of Encounter: 11/22/18 Time of Encounter: 10:20 - Assessment and Plan (1) ROSIE (acute kidney injury) Current Visit: Yes Status: Acute Acute kidney injury with unknown baseline thought to be related to prerenal azotemia vs. ATN from dehydration due to gastroenteritis. Creatinine 3.92 on 11/22/18 (from 2.98 on 11/20/18 upon admission), GFR 17 on 11/22/18 (from 23 on 11/20/18 upon admission), BUN 73 on 11/22/18 (from 47 on 11/20/18 upon admission), bicarb 15 11/21/18 (from 16 11/20/18 on admission). Patient's ROSIE seems to be getting worse possibly due to sepsis (Staph aureus positive cultures in serology). Renal ultrasound was negative for hydronephrosis or lesions, normal echogenicity. Add 1 bag Sodium bicarb 150 in 1L D5, then continue NS fluid resuscitation as previous rate. (2) Dehydration Current Visit: Yes Status: Acute Patient noted to be dehydrated on clinical examination upon admission and has received 3.5L of IVF. Urine output back to normal per patient. Adding 150mEq sodium bicarb in 1L D5, then continue NS at previous rate. Continue monitoring I&O and renal function (3) Elevated troponin Current Visit: Yes Status: Acute (4) Heart failure Current Visit: Yes Status: Acute Qualifiers: Qualified Code(s): I50.9 - Heart failure, unspecified (5) Hypertension Current Visit: Yes Status: Acute Patient noted to have PMH of HTN. Blood pressure 103/66 at 0958 11/22/18. Continue holding FAVIOLA-I and diuretic. Qualifiers: Qualified Code(s): I10 - Essential (primary) hypertension (6) Hyperuricemia Current Visit: Yes Status: Acute Uric acid noted at 13.0 on 11/21/18. Hospitalist is holding colchicine and allopurinol due to ROSIE/dehydration. (7) Hyponatremia Current Visit: Yes Status: Acute Na noted to be 126 on 11/22/18 s/p 3.5L NS from 127 upon admission on 11/20/18. Continue monitoring sodium. (8) Atrial fibrillation Current Visit: Yes Status: Acute Qualifiers: Qualified Code(s): I48.0 - Paroxysmal atrial fibrillation (9) Metabolic acidosis Current Visit: Yes Status: Acute Bicarb 15 on 11/22/18, increased from 16 on 11/20/18 upon admission, possibly due to ROSIE/dehydration. Placing 1 bag Sodium bicarb 150 in 1L D5. (10) Sepsis associated hypotension Current Visit: Yes Status: Acute Patient was noted to have 2/2 blood cultures positive for Staph aureus, not MRSA. Site of infection possibly foot, consult podiatry. Primary team treating with cefazolin and fluid resuscitation. Subjective Principal diagnosis: Chest pain Interval history: Mr. Tineo is a 48 year old man seen bedside on hospital day 3 with ROSIE of unknown origin, dehydration, sepsis-related hypotension with PMH of CHF s/p AICD placement, diabetes, HLD, resolved AFib s/p ablation, gout and HTN. Patient notes that he has had "gout pain in my shoulder" that has started since admission in the hospital. He also notes that his diarrhea has become less frequent since admission and fluid resuscitation. He admits heartburn when he eats and still lack of appetite, but notes that his urination is back to normal (whereas his first urination since Wednesday was yesterday). He admits loss of stuart etite but denies fever, chills, nausea, vomiting, chest pain, palpitations, shortness of breath, abdominal pain, blood in stool, blood in urine, frothy urine, or burning on urination. Objective - Vital Signs Vital signs: Vital Signs Temp Pulse Resp BP Pulse Ox 11/22/18 09:58 65 18 103/66 93 11/22/18 09:00 76 18 84/55 93 11/22/18 08:35 98.9 F 70 18 76/51 93 11/22/18 06:50 98.4 F 70 22 92/59 92 11/22/18 04:39 98.1 F 69 26 72/44 95 11/22/18 04:00 97.9 F 70 26 78/49 90 11/22/18 00:00 99.5 F 68 30 99/63 97 11/21/18 19:35 99.6 F 64 20 93/60 96 11/21/18 16:37 99.2 F 11/21/18 15:19 102.0 F H 64 18 108/64 97 11/21/18 10:42 98.9 F 71 24 94/62 95 Intake and Output 11/21/18 11/22/18 11/22/18 23:59 07:59 15:59 Intake Total 1000 / 1000 500 / 500 Balance 1000 / 1000 500 / 500 Intake: IV Fluids 1000 / 1000 500 / 500 0.9 % Sodium Chloride 500 ML @ 500 / 500 999 mls/hr IVC .Q31M ONE Rx#: [id number] - General Appearance Exam: General: AAO, notably uncomfortable at time of exam HEENT: mucus membranes moist, no conjunctival pallor CV: RRR, no murmurs, S1 present, S2 present, no LE edema Resp: LCTAB, no accessory muscle use noted GI: soft and non-tender, no distension, no guarding. Bowel sounds present. Neuro: A&Ox3. No focal deficits - Lab 11/22/18 09:14 11/22/18 09:14 Most recent lab results Calcium 8.1 mg/dL (8.6-10.3) L 11/22/18 09:14 Phosphorus 3.8 mg/dL (2.7-4.5) 11/22/18 09:14 - Imaging Kidney/bladder ultrasound: report reviewed Consult Discharge Plan - Plan Referrals: NONE,PCP [Primary Care Provider] -
[2018-11-22] MEDS ORDERED: Sodium Bicarbonate 150 MEQ in D5% in Water 1,000 ML IVC SCH (11:00)
[2018-11-22 11:38] LABS: Triiodothyronine (T3) Free 2.15 pg/mL (2.50-3.90)
[2018-11-22 11:42] LABS: Triiodothyronine (T3) Total 0.46 ng/mL (0.87-1.78)
[2018-11-22] MEDS ORDERED: Albumin 25% 25gram/100mL 25 GM/100 ML IV.SOLN IVPB ONE (11:43)
--- NOTE | 2018-11-22 13:16 | Pulmonology Consult Note ---
<Herb Conner - Last Filed: 11/22/18 16:07> Date of Encounter: 11/22/18 Time of Encounter: 13:14 Assessment and Plan (1) Septic shock Current Visit: Yes Status: Acute - During admission has met 2/4 SIRS criteria with fever 102, WBC 12.8 on admission. Also strong possibility that this may be cardiogenic. - Suspect that leukocytosis however may be related to being intracascularly dry, has downtrended with fluids - Lactic acid this AM wnl at 1.1, however BP has been resistant to fluids thus far. - Suspected source: unclear. May be GI given symptoms, however GPC makes this less likely - Organism: MSSA on PCR. Positive blood cultures x2 on 11/21 - There is some suspicion for septic joint given pain, however this may be gout flare due to fluid shifts. ICD does not appear infected - Evidence of end organ damage with acute renal failure - Most recent BP has improved to 112 systolic during interview after albumin infusion - UA obtained on admission not suggestive of infection - Rapid Flu negative on 11/20/18 - CXR on 11/20/18 shows cardiomegaly with no acute process. - ID has been consulted. Plan - Transfer to ICU for further care - Albumin 25g as above - Continue 4th 1L bolus of NS for fluid resuscitation. patient remain clinically dry and suspect he can tolerate more fluids despite known hx of HFrEF - Will broaden abx to zosyn and give 1 dose of vancomycin - Await culture sensitivities - Echo ordered with no signs of vegetations. He will likely need LUIS prior to discharge - Repeat blood cultures tomorrow AM - Will obtain CT scan of chest, abdomen, pelvis. (2) ROSIE (acute kidney injury) Current Visit: Yes Status: Acute - Likely pre-renal in etiology secondary to shock - BUN/Cr of 73/3.92, worsened from admission - No hx of CKD - Patient still clinically dry - Nephro following - Urine studies pending Plan - Defer to nephro, appreciate input - Will attempt to rehydrate as able as above. (3) Atrial fibrillation Current Visit: Yes Status: Acute - Currently rate controlled - AC at home on eliquis - CHADVASC 3 (CHF, DM, HTN), HASBLED 1 (acute renal failure) Plan - Continue home carvedilol, eliquis (4) Diarrhea Current Visit: Yes Status: Acute - unclear if this is the source of infection or a result of the sepsis - Clinically, this appears to be a likely source, however positive blood cultures for gram positive cocci make this less likely. - Patient reports decreased episodes but still has loose BMs. - Will obtain CT scan as above to evaluate for abdominal pathology (5) Elevated troponin Current Visit: Yes Status: Acute - Elevated at 0.09 on admission - trended and adynamic. Likely related to demand ischemia No chest pain, EKG reviewed, ventricular paced. (6) Heart failure Current Visit: Yes Status: Chronic - Known HFrEF with most recent echo 11/21/18. EF 35-40%, moderate global dysfunciton. Indeterminate diastolic dysfunction. S/p ICD in 2006 - Does not appear to be in exacerbation - Continue home meds. (7) Hypertension Current Visit: Yes Status: Chronic borderline low. holding home FAVIOLA due to ROSIE, hypotension continue to monitor and add back anti-hypertensives as able. (8) Metabolic acidosis Current Visit: Yes Status: Acute bicarb noted to be 15 this AM - AG of 13 - Likely multifactorial including GI losses with ROSIE, possible sepsis - Lactic acid wnl at 1.1 - Will continue to monitor and treat underlying causes as above. (9) DVT prophylaxis Current Visit: Yes Status: Acute continue home eliquis History of Present Illness Consult date: 11/22/18 Requesting physician: Margareth Bhatt Reason for consult: other (shock) Chief complaint: Nausea, vomiting, diarrhea History of present illness: Mr. Tineo is a 48 year old male with past medical history of diabetes, heart fa ilure with reduced ejection fraction s/p ICD, hyperlipidemia, A. fib, hypertension. He originally presented to the emergency room with complaint of nausea, vomiting, generalized body aches and 11/20/18. Critical care was consulted on 11/22/18 for concerns for hypotension resistant to fluids. Patient states that his symptoms initially started 3 days prior to admission. He states that he has experienced a lot of fatigue and has been unable to keep anything down by mouth. He did initially have fevers before presentation. Emesis was watery with no blood. No changes in medication. His symptoms have gradually improved since admission however his blood pressure has remained borderline low despite fluid resuscitation. On presentation to the emergency room, but signs were significant for a blood pressure 95/68, otherwise within normal limits. Laboratory results were significant for WBC of 12.8, hemoglobin 17.9, hematocrit 52.6, platelets 122, sodium 127, chloride 94, BUNs/creatinine of 47/2.98. He denies any history of kidney disease. Troponin was also elevated at 0.09 and uric acid was elevated at 13.0. Chest x-ray shows cardiomegaly, otherwise no acute process. EKG shows ventricular pacing. Blood cultures were obtained and do have preliminary growth with presumed MSSA in PCR x2. He has received a total of 3L NS at time of consult with 4th liter going. He has been started on ancef for abx coverage. Nephrology has been consulted for ROSIE, presumed pre-renal in nature. Echocar diogram was obtained which showed consistent EF of 35-40% with indeterminate diastolic dysfunction. Patient has reported improvement in the number of stools per day, but is still experiencing loose stools without improvement. Still feels weak. Denies ear pains, rhinorrhea, congestion, neck pain, limited ROM of neck, chest pains, difficulty breathing, cough, abdominal pain, dysuria/frequency/urgency, rashes, numbness, tingling. Does admits to some nausea without vomiting, no bowel movements yet today, does have a sore throat. He also is complaining of a sore right shoulder. He states that he has gout which flare occasionally and takes colchicine. Denies OTC NSAIDs for pain relief. No joint replacements. ICD placed in 2006. No sick contacts. 3 dogs and 3 cats at home. PMHx as above. PSHx: ICD in 2006 social: former tobacco, heavy alcohol use, cocaine use. Quit all in 2006 Past Med Surg Social Fam HX - Past Medical History Medical history: CHF, diabetes, hyperlipidemia, hypertension Psychiatric history: no psych history - Past Surgical History Additional surgical history: ablation - Social History Smoking Status: Former smoker Smokeless Tobacco Status: No Alcohol use: none Drug use: none - Family History Father Hx Family Cardiac Disorders: Yes (HTN, CABG, CAD) Hx Family Respiratory Disorders: Yes (SHAWN) Hx Family Endocrine Disorder: Yes (DM) Mother Hx Family Cardiac Disorders: Yes (HTN, AFib) Hx Family Musculoskeletal Disorders: Yes (Gout) Medications and Allergies Apixaban [Eliquis] 5 mg PO BID 11/20/18 [History] Carvedilol [Coreg] 25 mg PO BID 11/20/18 [History] Isosorbide MONOnitrate [Isosorbide Mononitrate ER] 60 mg DAILY 11/20/18 [History] RX: Furosemide [Lasix] 40 mg DAILY 11/20/18 [History] RX: Lovastatin 40 mg PO DAILY 11/20/18 [History] RX: Metformin HCl [Glucophage] 1,000 mg PO BID 11/20/18 [History] RX: Spironolactone 25 mg PO DAILY 11/20/18 [History] Sacubitril/Valsartan 24/26 mg [Entresto 24 mg-26 mg Tablet] 1 tab PO BID 11/20/18 [History] Aspirin [Adult Aspirin Regimen] 81 mg PO DAILY 11/21/18 [History] Colchicine [Colcrys] 0.6 mg PO DAILY PRN 11/21/18 [History] Allergy/AdvReac Type Severity Reaction Status Date / Time No Known Allergies Allergy Verified 11/20/18 16:20 All Systems: The remainder of the systems were reviewed and are negative Review of Systems: - Constitutional: Admits to fevers, fatigue. Denies chills, weight loss - Head/Neck: Denies BOOKER, neck stiffness - EENT: admits to sore throat. Denies vision changes/blurriness, rhinorrhea, congestion, odynaphagia - CVS: Denies chest pain, palpitations, BABCOCK, orthopnea, edema, PND, - Pulm: Denies SOB, cough, sputum, hematemesis, wheezing - GI: admits to nausea, loose bowel movement. Denies abdominal pain, anorexia, vomiting, constipation, melena - : Denies dysuria, increased frequency, urgency, hematuria, - Heme: Denies ease of bleeding or bruising - MSK:admits to should pain. Denies other joint pain, limited ROM - Skin: Denies rashes, ulcers, color changes, - Neuro: Denies BOOKER, paresthesias, focal deficits, ataxia, Physical Examination Vital Signs: Vital Signs, Last 4 Hours Temp Pulse Resp BP Pulse Ox 11/22/18 11:40 70 78/43 11/22/18 11:25 72/35 11/22/18 11:09 97.4 F L 70 16 86/48 97 11/22/18 09:58 65 18 103/66 93 Gen.: Vitals noted. No acute distress. AAOx3, resting comfortably in bed. HEENT: PERRL/EOMI, oropharynx clear, Normocephalic, atraumatic, dry mucous membranes Neck: Supple. No adenopathy. No thyroid nodules. Full range of motion Cardiac: RRR, no murmur, +S1/S2, No BLE edema Pulmonary: CTA bilaterally, no wheezes, rales or rhonchi, equal chest expansion, unlabored breathing Abdomen: soft, nontender, BS noted, no guarding, no palpable HSM. Mildly distended. Tenses to palpation of epigastric region Back: Nontender throughout. Skin: warm and dry, no visible lesions. MSK: ROM intact, no joint swelling noted, gait no assessed while in bed. Non tender calf or clubbing Neuro: A&Ox3, moves all extremities, no focal deficits, sensation intact Psych: Appropriate mood and behavior, AOx3 Results - Laboratory Findings CBC and BMP: 11/22/18 09:14 11/22/18 09:14 PT/INR, D-dimer PT 12.8 Seconds (9.4-12.1) H 11/21/18 00:56 Abnormal lab findings: Abnormal lab results RBC 4.14 M/mcL (4.19-5.50) L 11/22/18 09:14 Plt Count 74 K/mcL (140-400) L 11/22/18 09:14 Band Neutrophils % 14.0 % (0-4) H 11/21/18 00:56 Lymphocytes # 0.5 K/mcL (0.6-4.6) L 11/22/18 09:14 Platelet Estimate Decreased (Normal) L 11/21/18 00:56 PT 12.8 Seconds (9.4-12.1) H 11/21/18 00:56 Heparin Anti-Xa, Unfract 0.07 IU/mL (0.30-0.70) L 11/21/18 00:56 Sodium 126 mEq/L (136-145) L 11/22/18 09:14 Carbon Dioxide 15 mEq/L (23-29) L 11/22/18 09:14 BUN 73 mg/dL (6-20) H 11/22/18 09:14 Creatinine 3.92 mg/dL (0.70-1.30) H 11/22/18 09:14 Est GFR ( Amer) 20 (> 60) L 11/22/18 09:14 Est GFR (Non-Af Amer) 17 (> 60) L 11/22/18 09:14 Glucose 131 mg/dL (70-105) H 11/22/18 09:14 Hemoglobin A1c 6.0 % (-5.6) H 11/21/18 00:56 Uric Acid 13.0 mg/dL (2.3-7.6) H 11/21/18 00:56 Calcium 8.1 mg/dL (8.6-10.3) L 11/22/18 09:14 Creatine Kinase 390 Units/L (30-223) H 11/21/18 00:56 Troponin I 0.05 ng/mL (< 0.04) H* 11/22/18 09:14 Albumin 3.0 g/dL (3.5-5.7) L 11/22/18 09:14 Triglycerides 386 mg/dL (< 150) H 11/22/18 05:39 VLDL Cholesterol, Calc 77 mg/dL (< 31) H 11/22/18 05:39 HDL Cholesterol 4 mg/dL (40-59) L 11/22/18 05:39 Cholesterol/HDL Ratio 21.8 (0-4.9) H 11/22/18 05:39 Free T3 2.15 pg/mL (2.50-3.90) L 11/22/18 10:46 Total T3 0.46 ng/mL (0.87-1.78) L 11/22/18 10:46 Urine Clarity Cloudy (Clear) A 11/21/18 05:00 Urine Protein 100 mg/dL (Neg-Trace) H 11/21/18 05:00 Urine Ketones Trace mg/dL (Negative) H 11/21/18 05:00 Urine Blood Large (Negative) H 11/21/18 05:00 Urine Bilirubin Small (Negative) H 11/21/18 05:00 Urine Microscopic RBC 30-50 per hpf (0-3) H 11/21/18 05:00 Urine Microscopic WBC 15-30 per hpf (0-3) H 11/21/18 05:00 Ur Squamous Epith Cells Many per lpf (None-Few) H 11/21/18 05:00 Staph aureus (PCR) DETECTED (Not Detect) A 11/21/18 16:07 - Microbiology Findings Microbiology Findings: Microbiology, Last 48 Hours 11/21/18 16:07 Blood Culture - Preliminary Peripheral Venipuncture Gram Positive Cocci 11/21/18 16:07 Blood Culture - Preliminary Peripheral Venipuncture Gram Positive Cocci 11/20/18 16:46 Influenza Types A,B Antigen - Final Nasopharyngeal - Clinical Findings Intake & Output: Intake & Output 11/21/18 11/22/18 11/22/18 23:59 07:59 15:59 Intake Total 1000 / 1000 500 / 500 120 / 120 Balance 1000 / 1000 500 / 500 120 / 120 Consult Discharge Plan - Plan Referrals: NONE,PCP [Primary Care Provider] - <John Lainez - Last Filed: 11/22/18 16:44> Date of Encounter: 11/22/18 All Systems: The remainder of the systems were reviewed and are negative Physical Examination Vital Signs: Vital Signs, Last 4 Hours Temp Pulse Resp BP Pulse Ox 11/22/18 16:12 97.8 F 74 17 94/54 96 Results - Laboratory Findings CBC and BMP: 11/22/18 09:14 11/22/18 09:14 PT/INR, D-dimer PT 12.8 Seconds (9.4-12.1) H 11/21/18 00:56 Abnormal lab findings: Abnormal lab results RBC 4.14 M/mcL (4.19-5.50) L 11/22/18 09:14 Plt Count 74 K/mcL (140-400) L 11/22/18 09:14 Band Neutrophils % 14.0 % (0-4) H 11/21/18 00:56 Lymphocytes # 0.5 K/mcL (0.6-4.6) L 11/22/18 09:14 Platelet Estimate Decreased (Normal) L 11/21/18 00:56 PT 12.8 Seconds (9.4-12.1) H 11/21/18 00:56 Heparin Anti-Xa, Unfract 0.07 IU/mL (0.30-0.70) L 11/21/18 00:56 Sodium 126 mEq/L (136-145) L 11/22/18 09:14 Carbon Dioxide 15 mEq/L (23-29) L 11/22/18 09:14 BUN 73 mg/dL (6-20) H 11/22/18 09:14 Creatinine 3.92 mg/dL (0.70-1.30) H 11/22/18 09:14 Est GFR ( Amer) 20 (> 60) L 11/22/18 09:14 Est GFR (Non-Af Amer) 17 (> 60) L 11/22/18 09:14 Glucose 131 mg/dL (70-105) H 11/22/18 09:14 Hemoglobin A1c 6.0 % (-5.6) H 11/21/18 00:56 Uric Acid 13.0 mg/dL (2.3-7.6) H 11/21/18 00:56 Calcium 8.1 mg/dL (8.6-10.3) L 11/22/18 09:14 Creatine Kinase 390 Units/L (30-223) H 11/21/18 00:56 Troponin I 0.05 ng/mL (< 0.04) H* 11/22/18 09:14 Albumin 3.0 g/dL (3.5-5.7) L 11/22/18 09:14 Triglycerides 386 mg/dL (< 150) H 11/22/18 05:39 VLDL Cholesterol, Calc 77 mg/dL (< 31) H 11/22/18 05:39 HDL Cholesterol 4 mg/dL (40-59) L 11/22/18 05:39 Cholesterol/HDL Ratio 21.8 (0-4.9) H 11/22/18 05:39 Free T3 2.15 pg/mL (2.50-3.90) L 11/22/18 10:46 Total T3 0.46 ng/mL (0.87-1.78) L 11/22/18 10:46 Urine Clarity Cloudy (Clear) A 11/21/18 05:00 Urine Protein 100 mg/dL (Neg-Trace) H 11/21/18 05:00 Urine Ketones Trace mg/dL (Negative) H 11/21/18 05:00 Urine Blood Large (Negative) H 11/21/18 05:00 Urine Bilirubin Small (Negative) H 11/21/18 05:00 Urine Microscopic RBC 30-50 per hpf (0-3) H 11/21/18 05:00 Urine Microscopic WBC 15-30 per hpf (0-3) H 11/21/18 05:00 Ur Squamous Epith Cells Many per lpf (None-Few) H 11/21/18 05:00 Staph aureus (PCR) DETECTED (Not Detect) A 11/21/18 16:07 - Microbiology Findings Microbiology Findings: Microbiology, Last 48 Hours 11/21/18 16:07 Blood Culture - Preliminary Peripheral Venipuncture Gram Positive Cocci 11/21/18 16:07 Blood Culture - Preliminary Peripheral Venipuncture Gram Positive Cocci 11/20/18 16:46 Influenza Types A,B Antigen - Final Nasopharyngeal - Clinical Findings Intake & Output: Intake & Output 11/22/18 11/22/18 11/22/18 07:59 15:59 23:59 Intake Total 500 / 500 120 / 120 Balance 500 / 500 120 / 120 - Attending Attestation I examined this patient and my medical decision-making was reviewed with the Resident Physician. I agree with the documented findings, disposition and treatment plan as described except to the extent set forth below. Patient seen and examined. Labs, radiology, chart personally reviewed. I was called by the hospitalist to evaluate this patient and he was seen in 2A Agree with resident's history and physical, assessment, plan with following comments: ART TRACER: Patient follows commands, but he is lethargic Pulmonary: Acceptable oxygenation and ventilation. With his congestive heart failure, we need to be careful with aggressive fluid resuscitation . I have reviewed CT chest personally and has multiple nodules am not sure if this is related to underlying disease, I doubt septic emboli will looks like this. I do not see any evidence of pneumonia. At this time patient keeping oxygen saturation in a reasonable place, however condition could deteriorate with fluid resuscitation. Cardiovascular: Patient with congestive heart failure I suspect this is more chronic and he may need LUIS to make sure this is not endocarditis and I do not feel strongly this is a cardiogenic shock especially with positive blood cultures and I still feel he is volume depleted and need gentle hydration. GI: Nutrition per dietary and GI prophylaxis per routine Heme: DVT prophylaxis per routine ID: Continue antibiotics and plan to de-escalation. Infectious disease consultation. Renal; urine out put and renal funtion reviewed. Nephrology has been seen the patient and she will need Nelson catheter for strict in and out Endorcine: blood glucose is monitored Lines: all lines checked and no evidence of infections Skin: skin care to prevent pressure ulcers per nursing routine care I spent 35 min of Critical Care time with this patient. It involved decision making of high complexity to assess, manipulate, and support vital organ system failure and/or to prevent further life threatening deterioration of the patient's condition. The time involved in the performance of separately reportable procedures was not counted toward critical care time.
[2018-11-22] MEDS ORDERED: Piperacillin/Tazobactam 3.375 GM in 0.9 % Sodium Chloride Mini Bag 100 ML IVPB SCH (16:00)
--- NOTE | 2018-11-22 16:07 | Infectious Disease Consult ---
Date of Encounter: 11/22/18 Time of Encounter: 16:02 Assessment and Plan (1) Septic shock Status: Acute Assessment and plan: Currently patient's blood pressures in the 70s over 40s Transferring to the ICU Likely secondary to infectious septic shock plus may be cardiogenic factors Check lactic acid (2) MSSA bacteremia Status: Acute Assessment and plan: Complicated (patient has pacemaker/AICD) Source of infection not clear; patient denies any cellulitis-like picture open wounds trauma. Patient has poor dentition which is unlikely to be the source TTE negative for obvious endocarditis Physical exam negative for endocarditis stigmata CT chest with multiple subcentimeter nodules (septic emboli?) Right shoulder pain (septic arthritis versus gout attack?) Recommendations: 1.Repeat blood cultures times 2 in the AM 2.Patient will need a LUIS 3.DC vancomycin 4.DC Zosyn 5.Start cefazolin 2 g every 12 hours (based on creatinine clearance measured by me at about 29) 6.Aggressive hydration (3) H/O cardiac pacemaker Status: Acute Assessment and plan: No obvious milagros infection on physical exam CT chest does not mention any stranding around the pacemaker any signs of infection TTE was negative (4) Diarrhea Status: Acute Assessment and plan: Continues to have watery bowel movements but they are less frequent Etiology not clear We will check C. difficile Aggressive hydration and electrolyte replacement Qualifiers: Diarrhea type: infectious Qualified Code(s): A09 - Infectious gastroent eritis and colitis, unspecified (5) ROSIE (acute kidney injury) Status: Acute Assessment and plan: Etiology not clear. Patient tells me he never had kidney issues before so not sure if this is an acute process or acute on chronic We will need to dose adjust antibiotics based on his creatinine clearance (6) Hyponatremia Status: Acute (7) CHF (congestive heart failure) Status: Acute Qualifiers: Heart failure type: unspecified Heart failure chronicity: chronic Qualified Code(s): I50.9 - Heart failure, unspecified (8) Atrial fibrillation Status: Acute Qualifiers: Atrial fibrillation type: paroxysmal Qualified Code(s): I48.0 - Paroxysmal atrial fibrillation Infectious Disease HPI - Data of Consult Patient: new to practice Consult date: 11/22/18 Requesting Physician: Cindy Bhatt Primary Care Provider: PCP NONE - Consult Narrative Reason for consult: Staph bacteremia from unclear source History of present illness: Mr. Tineo is a 48 year old male Patient is a 48-year-old gentleman who presented to [facility] on 11/20/2018 was chest pain. We are consulted on 11/22/2018 with MSSA bacteremia 2 out of 2 sets. Patient with long-standing history of of hypertension, also has congestive heart failure and has a history of pacemaker/AICD placed in [place] back in 2006 he states. Patient denies history of renal failure or renal insufficiency that he knows off. Patient denies history of diabetes. Denies having a heart attack or stroke in the past. Patient does have chronic gout. Patient was in the usual state of health until a day or 2 prior to admission when he started having intractable nausea vomiting and just diffuse pain. Patient denied any fevers or chills at home. Patient came into the hospital for evaluation. Since admission, MAXIMUM TEMPERATURE 102.0 Fahrenheit no tachycardia but he has tachypnea. Presenting labs WBC 12.8 with 88% neutrophils, BUN 47 creatinine 2.986. Urinalysis is not impressive urine culture 2 out of 2 sets on 05/21/2019 are positive for MSSA bacteremia. CT abdomen and pelvis and lungs 11/21/2018: Multiple solid and some solid subcentimeter pulmonary nodules. Mediastinal adenopathy likely reactive and splenomegaly. Echocardiogram obtained on this admission revealed left ventricular ejection fraction of 35-40% moderate global left ventricular systolic dysfunction. Moderately dilated left atrium. Normal right ventricle structure and function. No significant valvular dysfunction and no pulmonary hypertension. Currently patient appears ill. Having a hard time moving. He is hypotensive but he still there and oriented. Patient also was in atrial fibrillation. Patient denies any headache. Denies any chest pain or shortness of breath. He does admit to right shoulder pain. Denies any nausea or vomiting. Continues to have diarrhea but has significantly improved. Denies any urinary symptoms. Patient also denies history of tobacco use, EtOH abuse or IV drug use. CC: Cindy Bhatt Past Med Surg Social Fam HX - Past Medical History Medical history: CHF, diabetes, hyperlipidemia, hypertension Psychiatric history: no psych history - Past Surgical History Additional surgical history: ablation - Social History Smoking Status: Former smoker Smokeless Tobacco Status: No Alcohol use: none Drug use: none - Family History Father Hx Family Cardiac Disorders: Yes (HTN, CABG, CAD) Hx Family Respiratory Disorders: Yes (SHAWN) Hx Family Endocrine Disorder: Yes (DM) Mother Hx Family Cardiac Disorders: Yes (HTN, AFib) Hx Family Musculoskeletal Disorders: Yes (Gout) Infectious Disease-CN:Meds Apixaban [Eliquis] 5 mg PO BID 11/20/18 [History] Carvedilol [Coreg] 25 mg PO BID 11/20/18 [History] Isosorbide MONOnitrate [Isosorbide Mononitrate ER] 60 mg DAILY 11/20/18 [History] RX: Furosemide [Lasix] 40 mg DAILY 11/20/18 [History] RX: Lovastatin 40 mg PO DAILY 11/20/18 [History] RX: Metformin HCl [Glucophage] 1,000 mg PO BID 11/20/18 [History] RX: Spironolactone 25 mg PO DAILY 11/20/18 [History] Sacubitril/Valsartan 24/26 mg [Entresto 24 mg-26 mg Tablet] 1 tab PO BID 11/20/18 [History] Aspirin [Adult Aspirin Regimen] 81 mg PO DAILY 11/21/18 [History] Colchicine [Colcrys] 0.6 mg PO DAILY PRN 11/21/18 [History] Allergy/AdvReac Type Severity Reaction Status Date / Time No Known Allergies Allergy Verified 11/20/18 16:20 Review of systems: 10 point review of systems done, negative other for what mentioned in the history of present illness Exam - Constitutional Vitals: Temp Pulse Resp BP Pulse Ox 97.4 F L 70 16 78/43 97 11/22/18 11:09 11/22/18 11:40 11/22/18 11:09 11/22/18 11:40 11/22/18 11:09 General appearance: cooperative, disheveled, no febrile - Head Head exam: Present: atraumatic, normocephalic - Eye Eye exam: Present: EOMI, PERRL, sclera anicteric Additional comments: No conjunctival hemorrhage noted - ENT ENT exam: Present: mucous membranes dry Additional comments: Poor dentition - Neck Neck exam: Present: full ROM. Absent: meningismus - Respiratory Respiratory exam: Present: CTAB. Absent: wheezes - Cardiovascular Cardiovascular exam: Present: irregular rhythm, +S1, +S2 Additional comments: Pacemaker/AICD pocket left chest intact with no wound dehiscence and no obvious infection - GI/Abdominal GI/Abdominal exam: Present: normal bowel sounds, soft. Absent: tenderness - Extremities Exam Additional comments: Right shoulder pain but no obvious septic arthritis. He does have pain on passive movement and tenderness in the posterior aspect of the shoulder. No other joint effusion or signs of septic arthritis - Back Exam Back exam: Present: normal inspection. Absent: CVA tenderness (L), CVA tenderness (R), vertebral tenderness - Neurological Exam Neurological exam: Present: alert, oriented X3. Absent: speech deficit - Psychiatric Psychiatric exam: Present: normal affect, normal mood - Skin Skin exam: Present: normal color. Absent: pallor Additional comments: No endocarditis stigmata Infectious Disease CN: Results - Labs CBC & Chem 7: 11/22/18 09:14 11/22/18 09:14 Cultures: Cultures 11/21/18 16:07 Blood Culture - Preliminary Peripheral Venipuncture Gram Positive Cocci 11/21/18 16:07 Blood Culture - Preliminary Peripheral Venipuncture Gram Positive Cocci 11/20/18 16:46 Influenza Types A,B Antigen - Final Nasopharyngeal Serology: Serology 11/21/18 11/21/18 Range/Units 16:07 05:00 Urine Color Dark Yellow (Yellow) Urine Clarity Cloudy A (Clear) Urine pH 5.5 (5.0-8.0) pH Units Ur Specific Mullen 1.015 (1.010-1.025) Urine Protein 100 H (Neg-Trace) mg/dL Urine Glucose (UA) Normal (Normal) mg/dL Urine Ketones Trace H (Negative) mg/dL Urine Blood Large H (Negative) Urine Nitrite Negative (Negative) Urine Bilirubin Small H (Negative) Urine Urobilinogen Normal (Normal) mg/dL Ur Leukocyte Esterase Negative (Negative) Urine Microscopic RBC 30-50 H (0-3) per hpf Urine Microscopic WBC 15-30 H (0-3) per hpf Ur Squamous Epith Cells Many H (None-Few) per lpf Urine Bacteria None Seen (None-Few) per hpf A. baumannii (PCR) Not Detected (Not Detect) Fátima albicans (PCR) Not Detected (Not Detect) C. glabrata (PCR) Not Detected (Not Detect) C. krusei (PCR) Not Detected (Not Detect) C. parapsilosis (PCR) Not Detected (Not Detect) C. tropicalis (PCR) Not Detected (Not Detect) Enterobacteriac sp PCR Not Detected (Not Detect) E. cloacae complex PCR Not Detected (Not Detect) Enterococcus sp PCR Not Detected (Not Detect) E. coli (PCR) Not Detected (Not Detect) H. influenzae (PCR) Not Detected (Not Detect) Klebsiella oxytoca PCR Not Detected (Not Detect) Klebsiella pneumoniae Not Detected (Not Detect) List. monocytogenes PCR Not Detected (Not Detect) N. meningitidis (PCR) Not Detected (Not Detect) Proteus species (PCR) Not Detected (Not Detect) Serratia marcescens PCR Not Detected (Not Detect) Staphylococcus sp PCR Not Detected (Not Detect) Staph aureus (PCR) DETECTED A (Not Detect) mecA-Methicil Res Gene Not Detected (Not Detect) Streptococcus sp PCR Not Detected (Not Detect) Group A Strep DNA Not Detected (Not Detect) Group B Strep (PCR) Not Detected (Not Detect) Strep pneumoniae (PCR) Not Detected (Not Detect) P. aeruginosa (PCR) Not Detected (Not Detect) Bryanna/B-Vanco Res Genes N/A (Not Detect) KPC (blaKPC) Detect PCR N/A (Not Detect) Consult Discharge Plan - Plan Referrals: NONE,PCP [Primary Care Provider] -
[2018-11-22] MEDS ORDERED: Ringers Solution, Lactated 1,000 ML IVC ONE (16:35)
[2018-11-22 17:13] LABS: Bilirubin,Urine Moderate (Negative); Blood,Urine Large (Negative); Clarity,Urine Cloudy (Clear); Color,Urine Dark Yellow (Yellow); Glucose,Urine (UA) Normal (Normal); Ketones,Urine Trace mg/dL (Negative); Leukocyte Esterase,Urine Trace (Negative); Nitrite,Urine Positive (Negative); Protein,Urine 100 mg/dL (Neg-Trace); Specific Gravity,Urine 1.022 (1.010-1.025); Urobilinogen,Urine Normal (Normal)
[2018-11-22 17:16] LABS: Hyaline Casts,Urine Few per lpf (None-Few); Squamous Epithelial Cell,Urine Many per lpf (None-Few)
[2018-11-22 17:23] LABS: Creatinine,Urine 198 mg/dL
[2018-11-22 17:39] LABS: Calcium 7.5 mg/dL (8.6-10.3)
[2018-11-22 17:43] LABS: Amorphous Sediment,Urine Moderate (Few); Bacteria,Urine Few per hpf (None-Few); Granular Casts,Urine Few per lpf (None Seen)
[2018-11-22 17:48] LABS: Protein/Creatinine Ratio,Urine 0.82 mg/mg (0.00-0.20); Sodium, Urine 18.5 mEq/L
[2018-11-22] MEDS ORDERED: ceFAZolin 2,000 MG in D5% in Water 100 ML IVPB SCH (18:00)
[2018-11-23 04:06] LABS: Albumin 3.1 g/dL (3.5-5.7); Calcium 8.4 mg/dL (8.6-10.3); Phosphorous 3.7 mg/dL (2.7-4.5)
[2018-11-23] MEDS: traMADol 50 MG TABLET PO PRN ×3 (04:16→19:46)
--- NOTE | 2018-11-23 07:50 | Pulmonology Progress Note ---
<Herb Conner - Last Filed: 11/23/18 09:40> Date of Encounter: 11/23/18 Time of Encounter: 07:49 Assessment and Plan (1) Septic shock Current Visit: Yes Status: Suspected - During admission has met 2/4 SIRS criteria with fever 102, WBC 12.8 on admission. Also strong possibility that this may be cardiogenic. - 0/4 sirs criteria today. Has been afebrile - Suspect that leukocytosis however may be related to being intracascularly dry, has downtrended with fluids - Lactic acid wnl at 1.1, however BP has been resistant to fluids thus far. - Suspected source: unclear. May be GI given symptoms, however GPC makes this unlikely - Organism: MSSA on PCR. Positive blood cultures x2 on 11/21. Studies pending - There is some suspicion for septic joint given pain, however this may be gout flare due to fluid shifts. ICD does not appear infected - Evidence of end organ damage with acute renal failure - Most recent BP has improved to 110s systolic - UA obtained on admission not suggestive of infection. Repeat on is again not suggestive of infection - Rapid Flu negative on 11/20/18 - CXR on 11/20/18 shows cardiomegaly with no acute process. - CT of the chest and abdomen obtained 11/22/18 does not show evidence of obvious infectious source. No evidence of fluid overload on lungs either - ID has been consulted. Plan - Stable for transfer out of ICU today, has not required vasopressor support -Suspected patient was hypovolemic which was contributing to his hypotension. This has improved with fluid resuscitation - Per infectious disease, recommend continuing Ancef, awaiting culture sensitivities - Repeat blood cultures obtained this morning - Echo ordered with no signs of vegetations. He will likely need LUIS prior to di scharge (2) ROSIE (acute kidney injury) Current Visit: Yes Status: Acute - Likely pre-renal in etiology secondary to shock - BUN/Cr of improved to 66/2.43 from 73/3.92 to fluid resuscitation - No hx of CKD - Patient clinical fluid status is improved - Nephro following - Urine studies obtained after fluid hydration however still suggest a prerenal etiology Plan - Defer to nephro, appreciate input - Will attempt to rehydrate as able as above. (3) Atrial fibrillation Current Visit: Yes Status: Acute - Currently rate controlled - AC at home on eliquis - CHADVASC 3 (CHF, DM, HTN), HASBLED 1 Plan - Continue home carvedilol, eliquis -Dose adjust for renal dysfunction Qualifiers: Atrial fibrillation type: paroxysmal Qualified Code(s): I48.0 - Paroxysmal atrial fibrillation (4) Diarrhea Current Visit: Yes Status: Acute - unclear if this is the source of infection or a result of the sepsis - Clinically, this appears to be a likely source, however positive blood cultures for gram positive cocci make this less likely. - Patient reports no bowel movements in the last 2 days -ET scan does not show evidence of infectious process. - GI panel pending per ID recommendations Qualifiers: Diarrhea type: infectious Qualified Code(s): A09 - Infectious gastroenteritis and colitis, unspecified (5) Elevated troponin Current Visit: Yes Status: Resolved - Elevated at 0.09 on admission - trended and adynamic. Likely related to demand ischemia No chest pain, EKG reviewed, ventricular paced. (6) Heart failure Current Visit: Yes Status: Chronic - Known HFrEF with most recent echo 11/21/18. EF 35-40%, moderate global dysfunciton. Indeterminate diastolic dysfunction. S/p ICD in 2006 - Does not appear to be in exacerbation - Continue home meds. - No evidence of fluid overload on CT Qualifiers: Heart failure type: systolic Heart failure chronicity: chronic Qualified Code(s): I50.22 - Chronic systolic (congestive) heart failure (7) Hypertension Current Visit: Yes Status: Chronic Improved today. BP at acceptable range holding home FAVIOLA due to ROSIE, hypotension continue to monitor and add back anti-hypertensives as able. Qualifiers: Hypertension type: essential hypertension Qualified Code(s): I10 - Essential (primary) hypertension (8) Metabolic acidosis Current Visit: Yes Status: Acute bicarb noted to be improved to 17 from 15 this AM - AG of 10, improving - Likely multifactorial including GI losses with ROSIE, possible sepsis - Lactic acid wnl at 1.1 - Will continue to monitor and treat underlying causes as above. (9) Shoulder pain, right Current Visit: Yes Status: Acute - Patient reports persistent right shoulder pain - Reports consistent with gout flare, takes colchicine at home - There is some concern however that this may be related to septic joint and s ource for MSSA bacteremia - Unable to get MRI due to ICD - CT chest did not show any obvious abnormality - Have consulted ortho for possible joint aspiration vs injection - unable to give NSAIDs due to ROSIE as above Qualifiers: Chronicity: acute Qualified Code(s): M25.511 - Pain in right shoulder (10) DVT prophylaxis Current Visit: Yes Status: Acute continue home eliquis Subjective Principal diagnosis: Chest pain Interval history: Patient was seen and examined at bedside this morning. Overall he states that he is doing well with improvement in his energy levels. He states he is not experiencing any nausea or vomiting swelling but has some decreased appetite. He has not had a bowel movement since the day before yesterday. Denies any symptoms of fevers, chills, chest pain, shortness of breath. Objective PUL Vital signs: Last Vital Signs Temp 97.4 F L 11/23/18 03:00 Pulse 65 11/23/18 06:00 Resp 15 11/23/18 06:00 BP 99/59 11/23/18 06:00 Pulse Ox 94 11/23/18 06:00 Gen.: Vitals noted. No acute distress. AAOx3, resting comfortably in bed. HEENT: PERRL/EOMI, oropharynx clear, Normocephalic, atraumatic, MMM Cardiac: RRR, no murmur, +S1/S2, No BLE edema Pulmonary: Faint expiratory wheezes, otherwise CTA bilaterally, no wheezes, rales or rhonchi, equal chest expansion, unlabored breathing Abdomen: soft, nontender, BS noted, no guarding, no palpable HSM Skin: warm and dry, no visible lesions. MSK: ROM intact, no joint swelling noted, gait no assessed while in bed. Non tender calf or clubbing. Some pain with motion of his right shoulder but no evidence of erythema, warmth. Neuro: A&Ox3, moves all extremities, no focal deficits, sensation intact Psych: Appropriate mood and behavior, AOx3 Results - Laboratory Findings CBC and BMP: 11/22/18 09:14 11/23/18 03:35 PT/INR, D-dimer PT 12.8 Seconds (9.4-12.1) H 11/21/18 00:56 Abnormal lab findings: Abnormal lab results RBC 4.14 M/mcL (4.19-5.50) L 11/22/18 09:14 Plt Count 74 K/mcL (140-400) L 11/22/18 09:14 Band Neutrophils % 14.0 % (0-4) H 11/21/18 00:56 Lymphocytes # 0.5 K/mcL (0.6-4.6) L 11/22/18 09:14 Platelet Estimate Decreased (Normal) L 11/21/18 00:56 PT 12.8 Seconds (9.4-12.1) H 11/21/18 00:56 Heparin Anti-Xa, Unfract 0.07 IU/mL (0.30-0.70) L 11/21/18 00:56 Sodium 130 mEq/L (136-145) L 11/23/18 03:35 Carbon Dioxide 17 mEq/L (23-29) L 11/23/18 03:35 BUN 66 mg/dL (6-20) H 11/23/18 03:35 Creatinine 2.43 mg/dL (0.70-1.30) H 11/23/18 03:35 Est GFR ( Amer) 35 (> 60) L 11/23/18 03:35 Est GFR (Non-Af Amer) 29 (> 60) L 11/23/18 03:35 BUN/Creatinine Ratio 27 (6-26) H 11/23/18 03:35 Glucose 130 mg/dL (70-105) H 11/23/18 03:35 POC Glucose 140 mg/dL (70-99) H 11/22/18 16:38 Hemoglobin A1c 6.0 % (-5.6) H 11/21/18 00:56 Uric Acid 13.0 mg/dL (2.3-7.6) H 11/21/18 00:56 Calcium 8.4 mg/dL (8.6-10.3) L 11/23/18 03:35 Creatine Kinase 390 Units/L (30-223) H 11/21/18 00:56 Troponin I 0.05 ng/mL (< 0.04) H* 11/22/18 09:14 Albumin 3.1 g/dL (3.5-5.7) L 11/23/18 03:35 Triglycerides 386 mg/dL (< 150) H 11/22/18 05:39 VLDL Cholesterol, Calc 77 mg/dL (< 31) H 11/22/18 05:39 HDL Cholesterol 4 mg/dL (40-59) L 11/22/18 05:39 Cholesterol/HDL Ratio 21.8 (0-4.9) H 11/22/18 05:39 Free T3 2.15 pg/mL (2.50-3.90) L 11/22/18 10:46 Total T3 0.46 ng/mL (0.87-1.78) L 11/22/18 10:46 Urine Clarity Cloudy (Clear) A 11/22/18 12:12 Urine Protein 100 mg/dL (Neg-Trace) H 11/22/18 12:12 Urine Ketones Trace mg/dL (Negative) H 11/22/18 12:12 Urine Blood Large (Negative) H 11/22/18 12:12 Urine Nitrite Positive (Negative) A 11/22/18 12:12 Urine Bilirubin Moderate (Negative) H 11/22/18 12:12 Ur Leukocyte Esterase Trace (Negative) H 11/22/18 12:12 Urine Microscopic RBC 5-15 per hpf (0-3) H 11/22/18 12:12 Urine Microscopic WBC 5-15 per hpf (0-3) H 11/22/18 12:12 Ur Squamous Epith Cells Many per lpf (None-Few) H 11/22/18 12:12 Amorphous Sediment Moderate (Few) H 11/22/18 12:12 Granular Casts Few per lpf (None Seen) H 11/22/18 12:12 Ur Culture Indicated? NO. (NO) A 11/22/18 12:12 Microalb/Creat Ratio 72 mcg/mg (Less than 30) H 11/22/18 10:57 Protein/Creatinin Ratio 0.82 mg/mg (0.00-0.20) H 11/22/18 10:57 Urine Total Protein 163 mg/dL (1-14) H 11/22/18 10:57 Staph aureus (PCR) DETECTED (Not Detect) A 11/21/18 16:07 - Microbiology Findings Microbiology Findings: Microbiology, Last 48 Hours 11/21/18 16:07 Blood Culture - Preliminary Peripheral Venipuncture Gram Positive Cocci 11/23/18 04:33 Blood Culture - Preliminary Peripheral Venipuncture Culture is incubating and being continuously monitored for growth. Final report to follow. 11/23/18 04:23 Blood Culture - Preliminary Peripheral Venipuncture Culture is incubating and being continuously monitored for growth. Final report to follow. 11/21/18 16:07 Blood Culture - Preliminary Peripheral Venipuncture Gram Positive Cocci - Clinical Findings Intake & Output: Intake & Output 11/22/18 11/22/18 11/23/18 15:59 23:59 07:59 Intake Total 120 / 120 600 / 600 Output Total 1050 / 1050 750 / 750 Balance 120 / 120 -450 / -450 -750 / -750 Weight 146.5 kg Consult Discharge Plan - Plan Referrals: NONE,PCP [Primary Care Provider] - <John Lainez - Last Filed: 11/23/18 10:51> Date of Encounter: 11/23/18 Objective PUL Vital signs: Last Vital Signs Temp 97.1 F L 11/23/18 08:37 Pulse 68 11/23/18 10:00 Resp 16 11/23/18 10:00 BP 95/62 11/23/18 10:00 Pulse Ox 94 11/23/18 10:00 Results - Laboratory Findings CBC and BMP: 11/23/18 10:15 11/23/18 03:35 PT/INR, D-dimer PT 12.8 Seconds (9.4-12.1) H 11/21/18 00:56 Abnormal lab findings: Abnormal lab results RBC 3.86 M/mcL (4.19-5.50) L 11/23/18 10:15 Hgb 12.8 g/dL (12.9-16.9) L 11/23/18 10:15 Plt Count 57 K/mcL (140-400) L 11/23/18 10:15 MPV 13.2 fL (9.4-12.4) H 11/23/18 10:15 Band Neutrophils % 14.0 % (0-4) H 11/21/18 00:56 Lymphocytes # 0.3 K/mcL (0.6-4.6) L 11/23/18 10:15 Platelet Estimate Decreased (Normal) L 11/21/18 00:56 Immature Plt Fraction 14.2 % (1.1-6.1) H 11/23/18 10:15 PT 12.8 Seconds (9.4-12.1) H 11/21/18 00:56 Heparin Anti-Xa, Unfract 0.07 IU/mL (0.30-0.70) L 11/21/18 00:56 Sodium 130 mEq/L (136-145) L 11/23/18 03:35 Carbon Dioxide 17 mEq/L (23-29) L 11/23/18 03:35 BUN 66 mg/dL (6-20) H 11/23/18 03:35 Creatinine 2.43 mg/dL (0.70-1.30) H 11/23/18 03:35 Est GFR ( Amer) 35 (> 60) L 11/23/18 03:35 Est GFR (Non-Af Amer) 29 (> 60) L 11/23/18 03:35 BUN/Creatinine Ratio 27 (6-26) H 11/23/18 03:35 Glucose 130 mg/dL (70-105) H 11/23/18 03:35 POC Glucose 140 mg/dL (70-99) H 11/22/18 16:38 Hemoglobin A1c 6.0 % (-5.6) H 11/21/18 00:56 Uric Acid 13.0 mg/dL (2.3-7.6) H 11/21/18 00:56 Calcium 8.4 mg/dL (8.6-10.3) L 11/23/18 03:35 Creatine Kinase 390 Units/L (30-223) H 11/21/18 00:56 Troponin I 0.05 ng/mL (< 0.04) H* 11/22/18 09:14 C-Reactive Protein 215 mg/L (Less than 10) H 11/23/18 03:35 Albumin 3.1 g/dL (3.5-5.7) L 11/23/18 03:35 Triglycerides 386 mg/dL (< 150) H 11/22/18 05:39 VLDL Cholesterol, Calc 77 mg/dL (< 31) H 11/22/18 05:39 HDL Cholesterol 4 mg/dL (40-59) L 11/22/18 05:39 Cholesterol/HDL Ratio 21.8 (0-4.9) H 11/22/18 05:39 Free T3 2.15 pg/mL (2.50-3.90) L 11/22/18 10:46 Total T3 0.46 ng/mL (0.87-1.78) L 11/22/18 10:46 Urine Clarity Cloudy (Clear) A 11/22/18 12:12 Urine Protein 100 mg/dL (Neg-Trace) H 11/22/18 12:12 Urine Ketones Trace mg/dL (Negative) H 11/22/18 12:12 Urine Blood Large (Negative) H 11/22/18 12:12 Urine Nitrite Positive (Negative) A 11/22/18 12:12 Urine Bilirubin Moderate (Negative) H 11/22/18 12:12 Ur Leukocyte Esterase Trace (Negative) H 11/22/18 12:12 Urine Microscopic RBC 5-15 per hpf (0-3) H 11/22/18 12:12 Urine Microscopic WBC 5-15 per hpf (0-3) H 11/22/18 12:12 Ur Squamous Epith Cells Many per lpf (None-Few) H 11/22/18 12:12 Amorphous Sediment Moderate (Few) H 11/22/18 12:12 Granular Casts Few per lpf (None Seen) H 11/22/18 12:12 Ur Culture Indicated? NO. (NO) A 11/22/18 12:12 Microalb/Creat Ratio 72 mcg/mg (Less than 30) H 11/22/18 10:57 Protein/Creatinin Ratio 0.82 mg/mg (0.00-0.20) H 11/22/18 10:57 Urine Total Protein 163 mg/dL (1-14) H 11/22/18 10:57 Staph aureus (PCR) DETECTED (Not Detect) A 11/21/18 16:07 - Microbiology Findings Microbiology Findings: Microbiology, Last 48 Hours 11/21/18 16:07 Blood Culture - Preliminary Peripheral Venipuncture Gram Positive Cocci 11/23/18 04:33 Blood Culture - Preliminary Peripheral Venipuncture Culture is incubating and being continuously monitored for growth. Final report to follow. 11/23/18 04:23 Blood Culture - Preliminary Peripheral Venipuncture Culture is incubating and being continuously monitored for growth. Final report to follow. 11/21/18 16:07 Blood Culture - Preliminary Peripheral Venipuncture Gram Positive Cocci - Clinical Findings Intake & Output: Intake & Output 11/22/18 11/23/18 11/23/18 23:59 07:59 15:59 Intake Total 600 / 600 100 / 100 Output Total 1050 / 1050 750 / 750 500 / 500 Balance -450 / -450 -750 / -750 -400 / -400 Weight 146.5 kg - Attending Attestation I examined this patient and my medical decision-making was reviewed with the Resident Physician. I agree with the documented findings, disposition and treatment plan as described except to the extent set forth below. Patient seen and examined. Labs, radiology, chart personally reviewed. 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 Patient stated he has obstructive sleep apnea and his been on CPAP but he does not know of pressure and he does not have a sleep follow-up in any clinic and we will try CPAP of 10 and adjust according to the comfort then advised him to follow-up in the sleep clinic as outpatient. Cardiovascular: stable and he is feeling better after fluid resuscitation GI: Nutrition per dietary and GI prophylaxis per routine Heme: DVT prophylaxis per routine ID: Continue antibiotics and plan to de-escalation. Still not clear source of sepsis, however I had assess his right shoulder could be the source and we will consider MRI and/or to consultation. Appreciate ID recommendation. Renal; urine out put and renal funtion reviewed Endorcine: blood glucose is monitored Lines: all lines checked and no evidence of infections Skin: skin care to prevent pressure ulcers per nursing routine care Patient hemodynamically stable and can be transferred to the floor [address] [place].
[2018-11-23] MEDS ORDERED: Aspirin 81 MG TAB.CHEW PO SCH (09:00)
[2018-11-23] MEDS: Acetaminophen 325 MG TABLET PO PRN (09:12)
[2018-11-23] MEDS: Apixaban 5 MG TABLET PO SCH ×2 (09:12→19:46)
--- NOTE | 2018-11-23 09:50 | Infectious Disease Progress No ---
Date of Encounter: 11/23/18 Time of Encounter: 09:15 - Assessment and Plan (1) Septic shock Current Visit: Yes Status: Suspected The patient had 3 sepsis criteria with hypotension. Likely secondary to MSSA bacteremia. Improved. Leukocytosis has resolved and he is no longer tachycardic or tachypneic. His blood pressure has normalized with IV fluids. Blood cultures drawn 11/21/18 are +2 out of 2 sets for MSSA. Repeat blood cultures drawn 11/23/18 are pending 2 sets. Recommendations: Await repeat blood cultures. Check ESR and CRP. Consider ortho to evaluate for right shoulder pain. The patient may need a CT of the right shoulder, but will defer to orthopedics. Will need LUIS prior to discharge. Continue cefazolin 2 g IV every 8 hours. Will need rifampin by mouth prior to discharge as well depending on the clinical findings Duration of treatment depends on the clinical picture. Monitor renal function and dose-adjust antibiotics. (2) MSSA bacteremia Current Visit: Yes Status: Acute Causative organism: MSSA. Source: Unclear. Blood cultures drawn 11/21/18 are +2 out of 2 sets. Repeat blood cultures drawn 11/23/18 are pending 2 sets. No endocarditis stigmata noted on exam. He does have some right shoulder pain which is concerning for possible seeding of the joint. The patient has one major and one minor modified Rogers criteria. Complicated due to the presence of a pacemaker. TTE negative for valvular vegetation. CT chest showed multiple solid and sub-solid subcentimeter pulmonary nodules:? Septic emboli. Currently on IV cefazolin. (3) ROSIE (acute kidney injury) Current Visit: Yes Status: Acute Likely secondary to sepsis. Continue to trend. Management per the primary team. Does adjust antibiotics. Avoid nephrotoxins as able. (4) Shoulder pain, right Current Visit: Yes Status: Acute Etiology: Unclear. New onset since yesterday. Concern for seeding of the joint. Consider CT of the right shoulder with possible aspiration of the joint. Recommend orthopedics to evaluate. Pain management per the primary team. Qualifiers: Chronicity: acute Qualified Code(s): M25.511 - Pain in right shoulder (5) Diarrhea Current Visit: Yes Status: Resolved Has not had a bowel movement since yesterday. Cancel GI panel. Cancel contact precautions. Qualifiers: Diarrhea type: infectious Qualified Code(s): A09 - Infectious gastroenteritis and colitis, unspecified (6) Hyponatremia Current Visit: Yes Status: Acute (7) H/O cardiac pacemaker Current Visit: Yes Status: Acute Placed in 2006. Clinically does not appear infected. (8) Atrial fibrillation Current Visit: Yes Status: Acute Qualifiers: Atrial fibrillation type: paroxysmal Qualified Code(s): I48.0 - Paroxysmal atrial fibrillation (9) CHF (congestive heart failure) Current Visit: Yes Status: Acute Qualifiers: Heart failure type: unspecified Heart failure chronicity: chronic Qualified Code(s): I50.9 - Heart failure, unspecified - Subjective Interval history: Patient seen and examined. No acute events noted overnight. Patient states overall he feels a little bit better today, but still feels pretty poorly. Denies fevers, chills, or rigors. Denies headache or neck pain. Denies chest pain or shortness of breath, but does endorse a cough productive of a small amount of clear phlegm that is streaked with blood. Denies nausea, vomiting, diarrhea, or constipation. He states his appetite is poor. He denies abdominal pain. He has a Nelson catheter that remains patent. He reports generalized back pain and severe focal right shoulder pain that is new since yesterday. He states his last bowel movement was yesterday prior to transfer to the ICU. He denies any oral thrush or new skin lesions. Infect Dis PN-Objective Data - Labs CBC & Chem 7: 11/23/18 10:15 11/23/18 03:35 Labs: Laboratory Results - last 24 hr 11/22/18 11/22/18 11/22/18 09:14 10:46 10:57 Sodium 126 L Potassium 4.0 Chloride 98 Carbon Dioxide 15 L BUN 73 H Creatinine 3.92 H Est GFR ( Amer) 20 L Est GFR (Non-Af Amer) 17 L BUN/Creatinine Ratio 19 Glucose 131 H POC Glucose Serum Osmolality Calculated Osmolality 285 Lactic Acid Calcium 8.1 L Phosphorus 3.8 Troponin I 0.05 H* Albumin 3.0 L Free T4 0.97 Thyroxine (T4) 7.44 Free T3 2.15 L Total T3 0.46 L Random Cortisol Urine Color Urine Clarity Urine pH Ur Specific [place] Urine Protein Urine Glucose (UA) Urine Ketones Urine Blood Urine Nitrite Urine Bilirubin Urine Urobilinogen Ur Leukocyte Esterase Urine Microscopic RBC Urine Microscopic WBC Ur Eosinophil Smear Ur Squamous Epith Cells Amorphous Sediment Urine Bacteria Hyaline Casts Granular Casts Ur Culture Indicated? Urine Osmolality Urine Creatinine 200 Urine Microalbumin 143 Microalb/Creat Ratio 72 H Protein/Creatinin Ratio 0.82 H Urine Sodium 18.5 Urine Urea Nitrogen Urine Total Protein 163 H HIV Ag/Ab Combo Qual 11/22/18 11/22/18 11/22/18 12:12 16:38 16:55 Sodium Potassium Chloride Carbon Dioxide BUN Creatinine Est GFR ( Amer) Est GFR (Non-Af Amer) BUN/Creatinine Ratio Glucose POC Glucose 140 H Serum Osmolality Calculated Osmolality Lactic Acid Calcium Phosphorus Troponin I Albumin Free T4 Thyroxine (T4) Free T3 Total T3 Random Cortisol Urine Color Dark Yellow Urine Clarity Cloudy A Urine pH 5.0 Ur Specific [place] 1.022 Urine Protein 100 H Urine Glucose (UA) Normal Urine Ketones Trace H Urine Blood Large H Urine Nitrite Positive A Urine Bilirubin Moderate H Urine Urobilinogen Normal Ur Leukocyte Esterase Trace H Urine Microscopic RBC 5-15 H Urine Microscopic WBC 5-15 H Ur Eosinophil Smear 0 Ur Squamous Epith Cells Many H Amorphous Sediment Moderate H Urine Bacteria Few Hyaline Casts Few Granular Casts Few H Ur Culture Indicated? NO. A Urine Osmolality Urine Creatinine 198 Urine Microalbumin Microalb/Creat Ratio Protein/Creatinin Ratio Urine Sodium Urine Urea Nitrogen 631 Urine Total Protein HIV Ag/Ab Combo Qual 11/22/18 11/22/18 11/23/18 17:15 17:15 03:30 Sodium 127 L Potassium 4.0 Chloride 101 Carbon Dioxide 20 L BUN 71 H Creatinine 3.35 H Est GFR ( Amer) 24 L Est GFR (Non-Af Amer) 20 L BUN/Creatinine Ratio 21 Glucose 159 H POC Glucose Serum Osmolality Calculated Osmolality 288 Lactic Acid 1.3 Calcium 7.5 L Phosphorus Troponin I Albumin Free T4 Thyroxine (T4) Free T3 Total T3 Random Cortisol Urine Color Urine Clarity Urine pH Ur Specific [place] Urine Protein Urine Glucose (UA) Urine Ketones Urine Blood Urine Nitrite Urine Bilirubin Urine Urobilinogen Ur Leukocyte Esterase Urine Microscopic RBC Urine Microscopic WBC Ur Eosinophil Smear Ur Squamous Epith Cells Amorphous Sediment Urine Bacteria Hyaline Casts Granular Casts Ur Culture Indicated? Urine Osmolality 501 Urine Creatinine Urine Microalbumin Microalb/Creat Ratio Protein/Creatinin Ratio Urine Sodium Urine Urea Nitrogen Urine Total Protein HIV Ag/Ab Combo Qual 0111/23/18 11/23/18 03:35 03:35 03:35 Sodium 130 L Potassium 4.0 Chloride 103 Carbon Dioxide 17 L BUN 66 H Creatinine 2.43 H Est GFR ( Amer) 35 L Est GFR (Non-Af Amer) 29 L BUN/Creatinine Ratio 27 H Glucose 130 H POC Glucose Serum Osmolality 300 Calculated Osmolality 291 Lactic Acid Calcium 8.4 L Phosphorus 3.7 Troponin I Albumin 3.1 L Free T4 Thyroxine (T4) Free T3 Total T3 Random Cortisol 24.6 Urine Color Urine Clarity Urine pH Ur Specific [place] Urine Protein Urine Glucose (UA) Urine Ketones Urine Blood Urine Nitrite Urine Bilirubin Urine Urobilinogen Ur Leukocyte Esterase Urine Microscopic RBC Urine Microscopic WBC Ur Eosinophil Smear Ur Squamous Epith Cells Amorphous Sediment Urine Bacteria Hyaline Casts Granular Casts Ur Culture Indicated? Urine Osmolality Urine Creatinine Urine Microalbumin Microalb/Creat Ratio Protein/Creatinin Ratio Urine Sodium Urine Urea Nitrogen Urine Total Protein HIV Ag/Ab Combo Qual 11/23/18 03:35 Sodium Potassium Chloride Carbon Dioxide BUN Creatinine Est GFR ( Amer) Est GFR (Non-Af Amer) BUN/Creatinine Ratio Glucose POC Glucose Serum Osmolality Calculated Osmolality Lactic Acid Calcium Phosphorus Troponin I Albumin Free T4 Thyroxine (T4) Free T3 Total T3 Random Cortisol Urine Color Urine Clarity Urine pH Ur Specific [place] Urine Protein Urine Glucose (UA) Urine Ketones Urine Blood Urine Nitrite Urine Bilirubin Urine Urobilinogen Ur Leukocyte Esterase Urine Microscopic RBC Urine Microscopic WBC Ur Eosinophil Smear Ur Squamous Epith Cells Amorphous Sediment Urine Bacteria Hyaline Casts Granular Casts Ur Culture Indicated? Urine Osmolality Urine Creatinine Urine Microalbumin Microalb/Creat Ratio Protein/Creatinin Ratio Urine Sodium Urine Urea Nitrogen Urine Total Protein HIV Ag/Ab Combo Qual Nonreactive Cultures: Cultures 11/21/18 16:07 Blood Culture - Preliminary Peripheral Venipuncture Gram Positive Cocci 11/23/18 04:33 Blood Culture - Preliminary Peripheral Venipuncture Culture is incubating and being continuously monitored for growth. Final report to follow. 11/23/18 04:23 Blood Culture - Preliminary Peripheral Venipuncture Culture is incubating and being continuously monitored for growth. Final report to follow. 11/21/18 16:07 Blood Culture - Preliminary Peripheral Venipuncture Gram Positive Cocci 11/20/18 16:46 Influenza Types A,B Antigen - Final Nasopharyngeal Serology 01/09/19 01/09/19 01/08/19 Range/Units 03:35 03:30 16:55 Urine Color (Yellow) Urine Clarity (Clear) Urine pH (5.0-8.0) pH Units Ur Specific [place] (1.010-1.025) Urine Protein (Neg-Trace) mg/dL Urine Glucose (UA) (Normal) mg/dL Urine Ketones (Negative) mg/dL Urine Blood (Negative) Urine Nitrite (Negative) Urine Bilirubin (Negative) Urine Urobilinogen (Normal) mg/dL Ur Leukocyte Esterase (Negative) Urine Microscopic RBC (0-3) per hpf Urine Microscopic WBC (0-3) per hpf Ur Eosinophil Smear (None Seen) % Ur Squamous Epith Cells (None-Few) per lpf Amorphous Sediment (Few) Urine Bacteria (None-Few) per hpf Hyaline Casts (None-Few) per lpf Granular Casts (None Seen) per lpf Ur Culture Indicated? (NO) Urine Osmolality 501 (300-1090) mOsm/kg Urine Creatinine 198 mg/dL Urine Microalbumin mg/L Microalb/Creat Ratio (Less than 30) mcg/mg Protein/Creatinin Ratio (0.00-0.20) mg/mg Urine Sodium mEq/L Urine Urea Nitrogen 631 mg/dL Urine Total Protein (1-14) mg/dL A. baumannii (PCR) (Not Detect) Fátima albicans (PCR) (Not Detect) C. glabrata (PCR) (Not Detect) C. krusei (PCR) (Not Detect) C. parapsilosis (PCR) (Not Detect) C. tropicalis (PCR) (Not Detect) Enterobacteriac sp PCR (Not Detect) E. cloacae complex PCR (Not Detect) Enterococcus sp PCR (Not Detect) E. coli (PCR) (Not Detect) H. influenzae (PCR) (Not Detect) HIV Ag/Ab Combo Qual Nonreactive (Nonreactive) Klebsiella oxytoca PCR (Not Detect) Klebsiella pneumoniae (Not Detect) List. monocytogenes PCR (Not Detect) N. meningitidis (PCR) (Not Detect) Proteus species (PCR) (Not Detect) Serratia marcescens PCR (Not Detect) Staphylococcus sp PCR (Not Detect) Staph aureus (PCR) (Not Detect) mecA-Methicil Res Gene (Not Detect) Streptococcus sp PCR (Not Detect) Group A Strep DNA (Not Detect) Group B Strep (PCR) (Not Detect) Strep pneumoniae (PCR) (Not Detect) P. aeruginosa (PCR) (Not Detect) Bryanna/B-Vanco Res Genes (Not Detect) KPC (blaKPC) Detect PCR (Not Detect) 11/22/18 11/22/18 11/21/18 Range/Units 12:12 10:57 16:07 Urine Color Dark Yellow (Yellow) Urine Clarity Cloudy A (Clear) Urine pH 5.0 (5.0-8.0) pH Units Ur Specific [place] 1.022 (1.010-1.025) Urine Protein 100 H (Neg-Trace) mg/dL Urine Glucose (UA) Normal (Normal) mg/dL Urine Ketones Trace H (Negative) mg/dL Urine Blood Large H (Negative) Urine Nitrite Positive A (Negative) Urine Bilirubin Moderate H (Negative) Urine Urobilinogen Normal (Normal) mg/dL Ur Leukocyte Esterase Trace H (Negative) Urine Microscopic RBC 5-15 H (0-3) per hpf Urine Microscopic WBC 5-15 H (0-3) per hpf Ur Eosinophil Smear 0 (None Seen) % Ur Squamous Epith Cells Many H (None-Few) per lpf Amorphous Sediment Moderate H (Few) Urine Bacteria Few (None-Few) per hpf Hyaline Casts Few (None-Few) per lpf Granular Casts Few H (None Seen) per lpf Ur Culture Indicated? NO. A (NO) Urine Osmolality (300-1090) mOsm/kg Urine Creatinine 200 mg/dL Urine Microalbumin 143 mg/L Microalb/Creat Ratio 72 H (Less than 30) mcg/mg Protein/Creatinin Ratio 0.82 H (0.00-0.20) mg/mg Urine Sodium 18.5 mEq/L Urine Urea Nitrogen mg/dL Urine Total Protein 163 H (1-14) mg/dL A. baumannii (PCR) Not Detected (Not Detect) Fátima albicans (PCR) Not Detected (Not Detect) C. glabrata (PCR) Not Detected (Not Detect) C. krusei (PCR) Not Detected (Not Detect) C. parapsilosis (PCR) Not Detected (Not Detect) C. tropicalis (PCR) Not Detected (Not Detect) Enterobacteriac sp PCR Not Detected (Not Detect) E. cloacae complex PCR Not Detected (Not Detect) Enterococcus sp PCR Not Detected (Not Detect) E. coli (PCR) Not Detected (Not Detect) H. influenzae (PCR) Not Detected (Not Detect) HIV Ag/Ab Combo Qual (Nonreactive) Klebsiella oxytoca PCR Not Detected (Not Detect) Klebsiella pneumoniae Not Detected (Not Detect) List. monocytogenes PCR Not Detected (Not Detect) N. meningitidis (PCR) Not Detected (Not Detect) Proteus species (PCR) Not Detected (Not Detect) Serratia marcescens PCR Not Detected (Not Detect) Staphylococcus sp PCR Not Detected (Not Detect) Staph aureus (PCR) DETECTED A (Not Detect) mecA-Methicil Res Gene Not Detected (Not Detect) Streptococcus sp PCR Not Detected (Not Detect) Group A Strep DNA Not Detected (Not Detect) Group B Strep (PCR) Not Detected (Not Detect) Strep pneumoniae (PCR) Not Detected (Not Detect) P. aeruginosa (PCR) Not Detected (Not Detect) Bryanna/B-Vanco Res Genes N/A (Not Detect) KPC (blaKPC) Detect PCR N/A (Not Detect) 11/21/18 Range/Units 05:00 Urine Color Dark Yellow (Yellow) Urine Clarity Cloudy A (Clear) Urine pH 5.5 (5.0-8.0) pH Units Ur Specific [place] 1.015 (1.010-1.025) Urine Protein 100 H (Neg-Trace) mg/dL Urine Glucose (UA) Normal (Normal) mg/dL Urine Ketones Trace H (Negative) mg/dL Urine Blood Large H (Negative) Urine Nitrite Negative (Negative) Urine Bilirubin Small H (Negative) Urine Urobilinogen Normal (Normal) mg/dL Ur Leukocyte Esterase Negative (Negative) Urine Microscopic RBC 30-50 H (0-3) per hpf Urine Microscopic WBC 15-30 H (0-3) per hpf Ur Eosinophil Smear (None Seen) % Ur Squamous Epith Cells Many H (None-Few) per lpf Amorphous Sediment (Few) Urine Bacteria None Seen (None-Few) per hpf Hyaline Casts (None-Few) per lpf Granular Casts (None Seen) per lpf Ur Culture Indicated? (NO) Urine Osmolality (300-1090) mOsm/kg Urine Creatinine mg/dL Urine Microalbumin mg/L Microalb/Creat Ratio (Less than 30) mcg/mg Protein/Creatinin Ratio (0.00-0.20) mg/mg Urine Sodium mEq/L Urine Urea Nitrogen mg/dL Urine Total Protein (1-14) mg/dL A. baumannii (PCR) (Not Detect) Fátima albicans (PCR) (Not Detect) C. glabrata (PCR) (Not Detect) C. krusei (PCR) (Not Detect) C. parapsilosis (PCR) (Not Detect) C. tropicalis (PCR) (Not Detect) Enterobacteriac sp PCR (Not Detect) E. cloacae complex PCR (Not Detect) Enterococcus sp PCR (Not Detect) E. coli (PCR) (Not Detect) H. influenzae (PCR) (Not Detect) HIV Ag/Ab Combo Qual (Nonreactive) Klebsiella oxytoca PCR (Not Detect) Klebsiella pneumoniae (Not Detect) List. monocytogenes PCR (Not Detect) N. meningitidis (PCR) (Not Detect) Proteus species (PCR) (Not Detect) Serratia marcescens PCR (Not Detect) Staphylococcus sp PCR (Not Detect) Staph aureus (PCR) (Not Detect) mecA-Methicil Res Gene (Not Detect) Streptococcus sp PCR (Not Detect) Group A Strep DNA (Not Detect) Group B Strep (PCR) (Not Detect) Strep pneumoniae (PCR) (Not Detect) P. aeruginosa (PCR) (Not Detect) Bryanna/B-Vanco Res Genes (Not Detect) KPC (blaKPC) Detect PCR (Not Detect) - Impressions Impressions Abdomen/Pelvis CT 11/22/18 15:00 IMPRESSION: 1. Multiple solid and sub solid subcentimeter pulmonary nodules. 2. Mediastinal adenopathy, likely reactive. 3. Splenomegaly. RECOMMENDATION: Fleischner Society guidelines for follow-up and management of incidentally detected subsolid pulmonary nodules: Multiple subsolid nodules > than or equal to 6 mm - CT at 3-6 months. Subsequent management based on the most suspicious nodule(s). D/ / Berry Richardson MD / Berry Richardson MD Interpreting Provider: Berry Richardson MD Chest CT 11/22/18 15:00 IMPRESSION: 1. Multiple solid and sub solid subcentimeter pulmonary nodules. 2. Mediastinal adenopathy, likely reactive. 3. Splenomegaly. RECOMMENDATION: Fleischner Society guidelines for follow-up and management of incidentally detected subsolid pulmonary nodules: Multiple subsolid nodules > than or equal to 6 mm - CT at 3-6 months. Subsequent management based on the most suspicious nodule(s). D/ / Berry Richardson MD / Berry Richardson MD Interpreting Provider: Berry Richardson MD Exam - Constitutional Vitals: Temp Pulse Resp BP Pulse Ox 97.1 F L 65 16 107/62 94 11/23/18 08:37 11/23/18 08:00 11/23/18 08:00 11/23/18 08:00 11/23/18 08:00 General appearance: cooperative, no acute distress, obese - Head Head exam: Present: atraumatic, normal inspection, normocephalic - Eye Eye exam: Present: EOMI, normal appearance, PERRL Pupils: Present: normal accommodation Additional comments: No subconjunctival hemorrhage noted. - ENT ENT exam: Present: mucous membranes moist - Neck Neck exam: Present: normal inspection - Respiratory Respiratory exam: Present: CTAB. Absent: rales, respiratory distress, rhonchi, wheezes - Cardiovascular Cardiovascular exam: Present: RRR, +S1, +S2 - GI/Abdominal GI/Abdominal exam: Present: distended, normal bowel sounds, soft. Absent: t enderness - Extremities Exam Extremities exam: Present: normal inspection, tenderness (Right shoulder). Absent: pedal edema Additional comments: Range of motion of the right shoulder severely limited due to pain. There is no warmth or erythema appreciated. No joint swelling. Positive pulse, motor, and sensation to the distal extremity noted. - Back Exam Back exam: Present: normal inspection. Absent: paraspinal tenderness, vertebral tenderness - Neurological Exam Neurological exam: Present: alert, oriented X3, no focal deficits - Psychiatric Psychiatric exam: Present: normal affect, normal mood - Skin Skin exam: Present: dry, intact, normal color, warm Consult Discharge Plan - Plan Referrals: NONE,PCP [Primary Care Provider] - - Attending Attestation I examined this patient and my medical decision-making was reviewed with the Resident Physician. I agree with the documented findings, disposition and treatment plan as described except to the extent set forth below.
--- NOTE | 2018-11-23 10:16 | Nephrology Progress Note ---
Date of Encounter: 11/23/18 Time of Encounter: 09:30 - Assessment and Plan (1) ROSIE (acute kidney injury) Current Visit: Yes Status: Acute Acute kidney injury with unknown baseline thought to be related to prerenal azotemia due to septic shock w/ confirmed MSSA bacteremia vs. ATN from dehydration due to gastroenteritis. Patient's renal function improved from yesterday and from admission; Creatinine 2.43 today from 3.35 yesterday and 2.98 upon admission; BUN 66 today from 71 yesterday and 47 upon admission; GFR 29 today from 20 yesterday and 23 upon admission; bicarb 17 today from 20 yesterday post sodium bicarb IV and 16 upon admission. Continue fluids, avoid nephrotoxins. (2) Dehydration Current Visit: Yes Status: Acute Patient noted to be dehydrated on clinical examination upon admission and has received over 5L of IVF. Urine output back to normal per patient. Continue fluids and continue monitoring I&O and renal function. (3) Elevated troponin Current Visit: Yes Status: Resolved (4) Heart failure Current Visit: Yes Status: Chronic Qualifiers: Heart failure type: systolic Heart failure chronicity: chronic Qualified Code(s): I50.22 - Chronic systolic (congestive) heart failure (5) Hypertension Current Visit: Yes Status: Chronic Patient noted to have PMH of HTN. Blood pressure 96/58 at 0900 11/23/18 likely due to septic shock. Continue holding FAVIOLA-I and diuretic. Qualifiers: Hypertension type: essential hypertension Qualified Code(s): I10 - Essential (primary) hypertension (6) Hyperuricemia Current Visit: Yes Status: Acute Uric acid noted at 13.0 on 11/21/18. Hospitalist is holding colchicine and allopurinol due to ROSIE/dehydration. Patient noted shoulder pain yesterday possibly due to gout but ID thinking possibly due to MSSA bacteremic seeding. (7) Hyponatremia Current Visit: Yes Status: Acute Likely due to sepsis vs. dehydration secondary to gastrointestinal symptoms. Sodium increased to 130 today from 127 upon admission with fluid resuscitation with NS and 150mEq sodium bicarb yesterday. Continue monitoring. (8) Atrial fibrillation Current Visit: Yes Status: Acute Qualifiers: Atrial fibrillation type: paroxysmal Qualified Code(s): I48.0 - Paroxysmal atrial fibrillation (9) Metabolic acidosis Current Visit: Yes Status: Acute Acidosis possibly due to sepsis vs. gastrointestinal symptoms. Bicarb 17 on 1/9/19, increased from 16 on 11/20/18 upon admission with addition of 150 mEq Sodium bicarb yesterday. Continue monitoring acid-base status, add another bolus IV sodium bicarb today. (10) Septic shock Current Visit: Yes Status: Suspected Patient met SIRS criteria with 2/2 confirmed serum culture for MSSA. Hypotension persisting even with fluid resuscitation. ID is on board, monitor renal function and renally dose antibiotics. (11) MSSA bacteremia Current Visit: Yes Status: Acute Subjective Principal diagnosis: Chest pain Interval history: Mr. Tineo is a 48 year old man seen bedside in ICU with ROSIE of unknown origin, dehydration, MSSA bacteremic sepsis-related hypotension with PMH of CHF s/p AICD placement, diabetes, HLD, resolved AFib s/p ablation, gout and HTN. Patient notes that his shoulder pain he previously described as gout pain has bothered him, shoulder feels hotter than before and that other doctors told him it could possibly be infected vs. gout. He also notes that his diarrhea has resolved and he has not had a bowel movement since being transferred to the ICU. He admits lack of appetite persists and has no trouble urinating and has a puckett catheter placed. He admits loss of appetite but denies fever, chills, nausea, vomiting, chest pain, palpitations, shortness of breath, abdominal pain, blood in stool, blood in urine, frothy urine, or burning on urination. Objective - Vital Signs Vital signs: Vital Signs Temp Pulse Resp BP Pulse Ox 11/23/18 09:00 72 14 96/58 95 11/23/18 08:37 97.1 F L 11/23/18 08:00 65 16 107/62 94 11/23/18 07:00 65 16 108/64 90 11/23/18 06:00 65 15 99/59 94 11/23/18 05:00 69 20 94 11/23/18 04:00 65 24 111/69 97 11/23/18 03:36 65 11/23/18 03:00 97.4 F L 71 14 102/66 90 11/23/18 02:00 64 14 104/67 95 11/23/18 01:00 65 9 109/73 94 11/23/18 00:00 69 12 114/77 96 11/22/18 23:54 65 11/22/18 23:11 98.1 F 11/22/18 23:00 65 12 104/67 95 11/22/18 22:00 65 12 112/72 96 11/22/18 21:00 65 14 99/61 95 11/22/18 20:00 69 18 85/53 89 11/22/18 19:40 69 11/22/18 19:05 97.5 F L 11/22/18 19:00 69 13 103/56 96 11/22/18 18:00 70 16 84/41 92 11/22/18 17:14 94/51 11/22/18 17:13 112/76 11/22/18 17:12 84/49 11/22/18 17:11 87/51 11/22/18 17:10 82/45 11/22/18 17:08 83/47 11/22/18 17:00 97.5 F L 69 16 82/49 92 11/22/18 16:55 69 11/22/18 16:12 97.8 F 74 17 94/54 96 11/22/18 11:40 70 78/43 11/22/18 11:25 72/35 11/22/18 11:09 97.4 F L 70 16 86/48 97 Intake and Output 11/22/18 11/23/18 11/23/18 23:59 07:59 15:59 Intake Total 600 / 600 100 / 100 Output Total 1050 / 1050 750 / 750 500 / 500 Balance -450 / -450 -750 / -750 -400 / -400 Intake: IV Fluids 600 / 600 100 / 100 ALBURX 5% 12.5 gm In 250 ml @ 500 / 500 60 mls/hr IVC .Q4H10M JAMILA Rx#: [id number] Ancef 2,000 MG In 0.9 % Sodium 100 / 100 100 / 100 Chloride 100 ML @ 200 mls/hr IVPB Q12HR JAMILA Rx#:[id number] Output: Catheter 1050 / 1050 750 / 750 500 / 500 Other: Weight 146.5 kg Blood Glucose* 140 Patient Weight 11/23/18 23:59 Weight 146.5 kg - General Appearance Exam: General: AAO, notably uncomfortable at time of exam HEENT: mucus membranes moist, no conjunctival pallor CV: RRR, no murmurs, S1 present, S2 present, LLE 1+ pitting edema at ankle Resp: LCTAB, no accessory muscle use noted GI: soft and non-tender, no distension, no guarding. Bowel sounds present. Neuro: A&Ox3. No focal deficits - Lab 11/23/18 10:15 11/23/18 03:35 Most recent lab results Calcium 8.4 mg/dL (8.6-10.3) L 11/23/18 03:35 Phosphorus 3.7 mg/dL (2.7-4.5) 11/23/18 03:35 Urine Creatinine 198 mg/dL 11/22/18 16:55 Urine Sodium 18.5 mEq/L 11/22/18 10:57 Urine Total Protein 163 mg/dL (1-14) H 11/22/18 10:57 Consult Discharge Plan - Plan Referrals: NONE,PCP [Primary Care Provider] -
[2018-11-23 10:27] LABS: Basophils % 0.2 %
[2018-11-23 10:29] LABS: Hematocrit 37.5 % (37.5-50.1); Hemoglobin 12.8 g/dL (12.9-16.9); Immature Platelets 14.2 % (1.1-6.1); Lymphocytes # 0.3 K/mcL (0.6-4.6); Lymphocytes % 4.1 %; Mean Corpuscular HGB Conc 34.1 g/dL (31.6-35.5); Mean Corpuscular Hemoglobin 33.2 pg (28.0-33.3); Mean Corpuscular Volume 97.2 fL (83.0-100.0); Mean Platelet Volume 13.2 fL (9.4-12.4); Monocytes # 0.7 K/mcL (0.0-1.3); Monocytes % 11.1 %; Neutrophils # 5.5 K/mcL (1.6-8.9); Platelet Count 57 K/mcL (140-400); Red Blood Count 3.86 M/mcL (4.19-5.50); Segmented Neutrophils % 82.6 %
--- NOTE | 2018-11-23 12:09 | Orthopedic Consult Note ---
Date of Encounter: 11/23/18 Time of Encounter: 12:07 Assessment and Plan (1) Shoulder pain, right Current Visit: Yes Status: Acute At this time, secondary to persistent pain x 5 days with known bacteremia, and unknown source- we will pursue CT of the right shoulder, with IR aspiration if fluid found within shoulder. Although septic shoulder less likely, I would still like to rule it out. Mild cellulitis noted to superior aspect of shoulder noted. Patient is unable to perform MRI due to pacemaker. CT scan reviewed: There is degenerative change of the AC joint with marginal osteophytes and mild mass effect. The acromion is downsloping. The acromiohumeral distance is within normal limits. No erosive features are noted at the AC joint. The glenohumeral joint is located. There is no acute osseous abnormality. Apacemaker is noted. No soft tissue fluid collection is appreciated. A glenohumeral joint effusion is not identified. No significant AC joint effusion is appreciated. No significant fluid is appreciated in the subacromial-subdeltoid bursa. Rotator cuff muscular bulk is within normal limits. There is mild subcutaneous edema overlying the shoulder. A small nodularfocus is noted in the right upper lobe. Please refer to the CT of the chest exam for follow-up recommendations. CT/CT shoulder RT wo con IMPRESSION: No CT evidence of septic arthritis. Mild subcutaneous edema about the right shoulder, consider mild cellulitis. No abscess. D/ / 11/23/2018 13:28:19 Joey Wright MD / Suellen Hayward Further recommendations: PT/OT for shoulder mobility. Continue with monitoring for worsening of s/s. Consider starting NSAIDs if kidney function will tolerate and BP allows, continue with pain control. ICE as needed Q shift. Will see patient again tomorrow for follow up. Qualifiers: Chronicity: acute Qualified Code(s): M25.511 - Pain in right shoulder History of Present Illness Chief complaint: Right Shoulder pain HPI: Mr. Tineo is a 48 year old male, seen in the ICU, admitted for severe sepsis, with positive 2/2 MSSA blood cultures. Ortho consulted to discuss right shoulder pain, and for septic shoulder rule out. Patient admits to severe right shoulder pain, 8/10, worsens with activity or movement. Sharp, constant pain along anterior aspect of shoulder, along acromial and AC regions. Pain started on Wednesday, approx 5 days ago, and has gradually worsened. Patient denies history of trauma, injury or any falls. He thought it started hurting because he slept on it wrong. He has had intermittent aches in shoulder throughout the last couple. He is currently retired, since 2006. Pain is worse with direct pressure or with active ROM. Denies radiation of pain, N/T, neck pain or lower arm pain. Exam: Mild erythema noted along superior aspect of right shoulder, along acroimial and AC regions. Slight warmth. No obvious effusion appreciated. No abrasions or obvious deformity. Moderate tenderness over AC joint, no tenderness along deltoid. AROM limited secondary to pain. PROM intact to shoulder level and below, pain only worsens in ABD position. IR/ER intact but painful Strength limited in all directions secondary to pain. NV intact distally Past Med Surg Social Fam HX - Past Medical History Medical history: CHF, diabetes, hyperlipidemia, hypertension Psychiatric history: no psych history - Past Surgical History Additional surgical history: ablation - Social History Smoking Status: Former smoker Smokeless Tobacco Status: No Alcohol use: none Drug use: none - Family History Father Hx Family Cardiac Disorders: Yes (HTN, CABG, CAD) Hx Family Respiratory Disorders: Yes (SHAWN) Hx Family Endocrine Disorder: Yes (DM) Mother Hx Family Cardiac Disorders: Yes (HTN, AFib) Hx Family Musculoskeletal Disorders: Yes (Gout) Medications and Allergies Apixaban [Eliquis] 5 mg PO BID 11/20/18 [History] Carvedilol [Coreg] 25 mg PO BID 11/20/18 [History] Furosemide [Lasix] 40 mg DAILY 11/20/18 [History] Isosorbide MONOnitrate [Isosorbide Mononitrate ER] 60 mg DAILY 11/20/18 [History] Lovastatin 40 mg PO DAILY 11/20/18 [History] Metformin HCl [Glucophage] 1,000 mg PO BID 11/20/18 [History] Sacubitril/Valsartan 24/26 mg [Entresto 24 mg-26 mg Tablet] 1 tab PO BID 11/20/18 [History] Spironolactone 25 mg PO DAILY 11/20/18 [History] Aspirin [Adult Aspirin Regimen] 81 mg PO DAILY 11/21/18 [History] Colchicine [Colcrys] 0.6 mg PO DAILY PRN 11/21/18 [History] Allergy/AdvReac Type Severity Reaction Status Date / Time No Known Allergies Allergy Verified 11/20/18 16:20 All Systems Reviewed: The remainder of the systems were reviewed and are negative - Constitutional Constitutional: as per HPI, fever(s), weakness, no frequent falls, no headache(s) - Cardiovascular Cardiovascular: no chest pain, no syncope - Respiratory Respiratory: no cough - Musculoskeletal Musculoskeletal: limited range of motion, stiffness, no joint swelling, no muscle weakness, no neck pain, no numbness, no radiating pain into limb, no tingling Physical Exam - Constitutional Vitals: Temp Pulse Resp BP Pulse Ox 97.1 F L 66 14 86/52 94 11/23/18 08:37 11/23/18 12:00 11/23/18 12:00 11/23/18 12:00 11/23/18 12:00 General appearance IM: A&O X 3, obese, answers questions appropriately Results - Labs Result Diagrams: 11/23/18 10:15 11/23/18 03:35 Labs: Abnormal lab results RBC 3.86 M/mcL (4.19-5.50) L 11/23/18 10:15 Hgb 12.8 g/dL (12.9-16.9) L 11/23/18 10:15 Plt Count 57 K/mcL (140-400) L 11/23/18 10:15 MPV 13.2 fL (9.4-12.4) H 11/23/18 10:15 Band Neutrophils % 14.0 % (0-4) H 11/21/18 00:56 Lymphocytes # 0.3 K/mcL (0.6-4.6) L 11/23/18 10:15 Platelet Estimate Decreased (Normal) L 11/21/18 00:56 Immature Plt Fraction 14.2 % (1.1-6.1) H 11/23/18 10:15 ESR 69 mm/hr (0-10) H 11/23/18 10:15 PT 12.8 Seconds (9.4-12.1) H 11/21/18 00:56 Heparin Anti-Xa, Unfract 0.07 IU/mL (0.30-0.70) L 11/21/18 00:56 Sodium 130 mEq/L (136-145) L 11/23/18 03:35 Carbon Dioxide 17 mEq/L (23-29) L 11/23/18 03:35 BUN 66 mg/dL (6-20) H 11/23/18 03:35 Creatinine 2.43 mg/dL (0.70-1.30) H 11/23/18 03:35 Est GFR ( Amer) 35 (> 60) L 11/23/18 03:35 Est GFR (Non-Af Amer) 29 (> 60) L 11/23/18 03:35 BUN/Creatinine Ratio 27 (6-26) H 11/23/18 03:35 Glucose 130 mg/dL (70-105) H 11/23/18 03:35 POC Glucose 140 mg/dL (70-99) H 11/22/18 16:38 Hemoglobin A1c 6.0 % (-5.6) H 11/21/18 00:56 Uric Acid 13.0 mg/dL (2.3-7.6) H 11/21/18 00:56 Calcium 8.4 mg/dL (8.6-10.3) L 11/23/18 03:35 Creatine Kinase 390 Units/L (30-223) H 11/21/18 00:56 Troponin I 0.05 ng/mL (< 0.04) H* 11/22/18 09:14 C-Reactive Protein 215 mg/L (Less than 10) H 11/23/18 03:35 Albumin 3.1 g/dL (3.5-5.7) L 11/23/18 03:35 Triglycerides 386 mg/dL (< 150) H 11/22/18 05:39 VLDL Cholesterol, Calc 77 mg/dL (< 31) H 11/22/18 05:39 HDL Cholesterol 4 mg/dL (40-59) L 11/22/18 05:39 Cholesterol/HDL Ratio 21.8 (0-4.9) H 11/22/18 05:39 Free T3 2.15 pg/mL (2.50-3.90) L 11/22/18 10:46 Total T3 0.46 ng/mL (0.87-1.78) L 11/22/18 10:46 Urine Clarity Cloudy (Clear) A 11/22/18 12:12 Urine Protein 100 mg/dL (Neg-Trace) H 11/22/18 12:12 Urine Ketones Trace mg/dL (Negative) H 11/22/18 12:12 Urine Blood Large (Negative) H 11/22/18 12:12 Urine Nitrite Positive (Negative) A 11/22/18 12:12 Urine Bilirubin Moderate (Negative) H 11/22/18 12:12 Ur Leukocyte Esterase Trace (Negative) H 11/22/18 12:12 Urine Microscopic RBC 5-15 per hpf (0-3) H 11/22/18 12:12 Urine Microscopic WBC 5-15 per hpf (0-3) H 11/22/18 12:12 Ur Squamous Epith Cells Many per lpf (None-Few) H 11/22/18 12:12 Amorphous Sediment Moderate (Few) H 11/22/18 12:12 Granular Casts Few per lpf (None Seen) H 11/22/18 12:12 Ur Culture Indicated? NO. (NO) A 11/22/18 12:12 Microalb/Creat Ratio 72 mcg/mg (Less than 30) H 11/22/18 10:57 Protein/Creatinin Ratio 0.82 mg/mg (0.00-0.20) H 11/22/18 10:57 Urine Total Protein 163 mg/dL (1-14) H 11/22/18 10:57 Staph aureus (PCR) DETECTED (Not Detect) A 11/21/18 16:07 H & H 11/23/18 Range/Units 10:15 Hgb 12.8 L (12.9-16.9) g/dL Hct 37.5 (37.5-50.1) % All other labs normal. - Diagnostic results Shoulder CT: report reviewed, image reviewed Consult Discharge Plan - Plan Referrals: NONE,PCP [Primary Care Provider] -
[2018-11-23] MEDS ORDERED: Sodium Bicarbonate 150 MEQ in D5% in Water 1,000 ML IVC SCH (13:15)
[2018-11-23] MEDS ORDERED: Naloxone 0.4 MG/ML INJ IVP PRN (17:53)
[2018-11-23] MEDS ORDERED: Ondansetron 4 MG/2 ML VIAL IVP PRN (17:53)
[2018-11-23 21:03] LABS: Acinetobacter baumannii by PCR Not Detected (Not Detect); Enterobacter cloacae Cmplx PCR Not Detected (Not Detect); Enterobacteriaceae by PCR Not Detected (Not Detect); Enterococcus by PCR Not Detected (Not Detect); Staphylococcus aureus by PCR DETECTED (Not Detect); Staphylococcus by PCR DETECTED (Not Detect); Streptococcus agalactiae(B)PCR Not Detected (Not Detect); Streptococcus by PCR Not Detected (Not Detect); Streptococcus pneumoniae PCR Not Detected (Not Detect); Streptococcus pyogenes (A) PCR Not Detected (Not Detect); blaKPC Carbapenem-Resist Gene Not Detected (Not Detect); mecA Methicillin-Resist Gene Not Detected (Not Detect); vanA/B Vancomycin-Resist Genes Not Detected (Not Detect)
[2018-11-23 21:04] LABS: Candida albicans by PCR Not Detected (Not Detect); Candida glabrata by PCR Not Detected (Not Detect); Candida krusei by PCR Not Detected (Not Detect); Candida parapsilosis by PCR Not Detected (Not Detect); Candida tropicalis by PCR Not Detected (Not Detect); Escherichia coli by PCR Not Detected (Not Detect); Klebsiella oxytoca by PCR Not Detected (Not Detect); Klebsiella pneumoniae by PCR Not Detected (Not Detect); Proteus by PCR Not Detected (Not Detect); Pseudomonas aeruginosa by PCR Not Detected (Not Detect); Serratia marcescens by PCR Not Detected (Not Detect)
[2018-11-24] MEDS: Acetaminophen 325 MG TABLET PO PRN ×2 (00:13→06:00)
[2018-11-24] MEDS: traMADol 50 MG TABLET PO PRN ×3 (01:40→19:57)
[2018-11-24 03:55] LABS: Eosinophils % 0.4 %
[2018-11-24 03:57] LABS: Hematocrit 38.3 % (37.5-50.1); Hemoglobin 12.9 g/dL (12.9-16.9); Immature Granulocytes % 1.9 % (0-4); Immature Platelets 13.4 % (1.1-6.1); Lymphocytes # 0.4 K/mcL (0.6-4.6); Lymphocytes % 6.7 %; Mean Corpuscular HGB Conc 33.7 g/dL (31.6-35.5); Mean Corpuscular Hemoglobin 32.5 pg (28.0-33.3); Mean Corpuscular Volume 96.5 fL (83.0-100.0); Mean Platelet Volume 13.3 fL (9.4-12.4); Monocytes % 14.3 %; Red Blood Count 3.97 M/mcL (4.19-5.50); Red Cell Distribution Width 12.9 % (11.5-14.5); Segmented Neutrophils % 76.7 %
[2018-11-24 04:05] LABS: Monocytes # 0.7 K/mcL (0.0-1.3); Platelet Count 68 K/mcL (140-400)
[2018-11-24 04:07] LABS: BUN/Creatinine Ratio 37 (6-26); Blood Urea Nitrogen 49 mg/dL (6-20); Calcium 8.7 mg/dL (8.6-10.3); Carbon Dioxide 24 mEq/L (23-29); Chloride 105 mEq/L (98-107); Glucose 109 mg/dL (70-105); Osmolality,Calculated 296 (280-300); Potassium 3.4 mEq/L (3.5-5.1); Sodium 136 mEq/L (136-145); eGFR For Non-African Americans 59 (> 60)
[2018-11-24 05:09] LABS: Magnesium 1.8 mg/dL (1.6-2.6); Phosphorous 1.8 mg/dL (2.7-4.5)
[2018-11-24] MEDS ORDERED: Potassium Phosphate 44 MEQ in 0.9 % Sodium Chloride 250 ML IVPB PRN (05:13)
--- NOTE | 2018-11-24 07:09 | Pulmonology Progress Note ---
<Herb Conner - Last Filed: 11/24/18 08:24> Date of Encounter: 11/24/18 Time of Encounter: 07:09 Assessment and Plan (1) Septic shock Current Visit: Yes Status: Suspected - During admission has met 2/4 SIRS criteria with fever 102, WBC 12.8 on admission. Also strong possibility that this may be cardiogenic. - 0/4 sirs criteria today. Has been afebrile - Suspect that leukocytosis however may be related to being intracascularly dry, has downtrended with fluids - Lactic acid wnl at 1.1, BP has now responded to more aggressive fluids. - Suspected source: unclear. Some suspicion for septic shoulder, however ortho, ID believe this unlikely and CT does not show obvious fluid collection - Alternatively, patient does have in ICD placed in 2006 which does not appear obviously infected on clinical exam or CT - Organism: MSSA on PCR. Positive blood cultures x2 on 11/21. - Repeat cultures 11/23/18 again positive for MSSA x2 - Evidence of end organ damage with acute renal failure, improving. - Most recent BP has improved to 110s systolic - UA obtained on admission not suggestive of infection. Repeat on 09/22 is again not suggestive of infection - Rapid Flu negative on 11/20/18 - CXR on 11/20/18 shows cardiomegaly with no acute process. - CT of the chest and abdomen obtained 11/22/18 does not show evidence of obvious infectious source. No evidence of fluid overload on lungs either - ID has been consulted. - TTE does not show evidence of vegetation. Plan - Stable for transfer out of ICU today, has not required vasopressor support, pending bed availability -Suspected patient was hypovolemic which was contributing to his hypotension. This has improved with fluid resuscitation - Per infectious disease, recommend continuing Ancef, awaiting culture sensitivities - Will obtain LUIS today, NPO diet - Will contact IR to further evaluate for joint aspiration - Ortho consulted yesterday, will follow today. If patient continues to be bacteremic, we cannot obtain an MRI at this facility due to his ICD. If LUIS negative and unable to get synovial fluid, will likely require transfer to facility that is able to use different MRI. Patient prefers [facility] over [place] if able. (2) ROSIE (acute kidney injury) Current Visit: Yes Status: Acute - Likely pre-renal in etiology secondary to shock - BUN/Cr of improved to 49/1.31 from 73/3.92 after fluid resuscitation - No hx of CKD - Patient clinical fluid status is improved, good urine output. - Nephro following - Urine studies obtained after fluid hydration however still suggest a prerenal etiology Plan - Defer to nephro, appreciate input - Will attempt to rehydrate as able as above. (3) Atrial fibrillation Current Visit: Yes Status: Acute - Currently rate controlled - AC at home on eliquis - CHADVASC 3 (CHF, DM, HTN), HASBLED 1 Plan - Continue home carvedilol, eliquis -Dose adjust for renal dysfunction Qualifiers: Atrial fibrillation type: paroxysmal Qualified Code(s): I48.0 - Paroxysmal atrial fibrillation (4) Diarrhea Current Visit: Yes Status: Resolved - unclear if this is the source of infection or a result of the sepsis - Clinically, this appears to be a likely source, however positive blood cultures for gram positive cocci make this less likely. - Patient reports no bowel movements in the last 2 days -CT scan does not show evidence of infectious process. - GI panel pending per ID recommendations Qualifiers: Diarrhea type: infectious Qualified Code(s): A09 - Infectious gastroenteritis and colitis, unspecified (5) Elevated troponin Current Visit: Yes Status: Resolved - Elevated at 0.09 on admission - trended and adynamic. Likely related to demand ischemia No chest pain, EKG reviewed, ventricular paced. (6) Heart failure Current Visit: Yes Status: Chronic - Known HFrEF with most recent echo 11/21/18. EF 35-40%, moderate global dysfunciton. Indeterminate diastolic dysfunction. S/p ICD in 2006 - Does not appear to be in exacerbation - Continue home meds. - No evidence of fluid overload on CT Qualifiers: Heart failure type: systolic Heart failure chronicity: chronic Qualified Code(s): I50.22 - Chronic systolic (congestive) heart failure (7) Hypertension Current Visit: Yes Status: Chronic Improved today. BP at acceptable range holding home FAVIOLA due to ROSIE, hypotension continue to monitor and add back anti-hypertensives as able. Qualifiers: Hypertension type: essential hypertension Qualified Code(s): I10 - Essential (primary) hypertension (8) Metabolic acidosis Current Visit: Yes Status: Resolved resolved, bicarb of 24 this AM - Likely multifactorial including GI losses with ROSIE, possible sepsis - Lactic acid wnl at 1.1 - Will continue to monitor and treat underlying causes as above. (9) Shoulder pain, right Current Visit: Yes Status: Acute - Patient reports persistent right shoulder pain - Reports consistent with gout flare, takes colchicine at home - There is some concern however that this may be related to septic joint and source for MSSA bacteremia - Unable to get MRI due to ICD - CT chest did not show any obvious abnormality - Have consulted ortho for possible joint aspiration vs injection - unable to give NSAIDs due to ROSIE as above plan as above Qualifiers: Chronicity: acute Qualified Code(s): M25.511 - Pain in right shoulder (10) DVT prophylaxis Current Visit: Yes Status: Acute continue home eliquis Subjective Principal diagnosis: Chest pain Interval history: Patient was seen and examined at bedside this morning. Overall he states that he is doing well with improvement in his energy levels. He states he is not experiencing any nausea or vomiting. Still is experiencing shoulder pain which has not improved and has hindered his sleep. Objective PUL Vital signs: Last Vital Signs Temp 97.4 F L 11/24/18 04:00 Pulse 66 11/24/18 04:00 Resp 18 11/24/18 04:00 BP 93/51 11/24/18 04:00 Pulse Ox 95 11/24/18 04:00 General appearance: no acute distress Eyes: nonicteric ENT: oropharynx moist Neck: supple, no lymphadenopathy, no JVD Effort: normal Auscultation: bilateral: clear Cardiovascular: irregular rhythm Gastrointestinal: normoactive bowel sounds, soft, non-tender, non-distended Integumentary: normal Extremities: no cyanosis, no edema, no clubbing, pink and warm, other (right shoulder tender. limited ROM due to pain. ) Musculoskeletal: no deformities, joint tenderness normal mental status, non-focal exam mood appropriate, affect normal Results - Laboratory Findings CBC and BMP: 11/24/18 03:39 11/24/18 03:39 PT/INR, D-dimer PT 12.8 Seconds (9.4-12.1) H 11/21/18 00:56 Abnormal lab findings: Abnormal lab results RBC 3.97 M/mcL (4.19-5.50) L 11/24/18 03:39 Plt Count 68 K/mcL (140-400) L 11/24/18 03:39 MPV 13.3 fL (9.4-12.4) H 11/24/18 03:39 Band Neutrophils % 14.0 % (0-4) H 11/21/18 00:56 Lymphocytes # 0.4 K/mcL (0.6-4.6) L 11/24/18 03:39 Platelet Estimate Decreased (Normal) L 11/21/18 00:56 Immature Plt Fraction 13.4 % (1.1-6.1) H 11/24/18 03:39 ESR 69 mm/hr (0-10) H 11/23/18 10:15 PT 12.8 Seconds (9.4-12.1) H 11/21/18 00:56 Heparin Anti-Xa, Unfract 0.07 IU/mL (0.30-0.70) L 11/21/18 00:56 Potassium 3.4 mEq/L (3.5-5.1) L 11/24/18 03:39 BUN 49 mg/dL (6-20) H 11/24/18 03:39 Creatinine 1.31 mg/dL (0.70-1.30) H 11/24/18 03:39 Est GFR (Non-Af Amer) 59 (> 60) L 11/24/18 03:39 BUN/Creatinine Ratio 37 (6-26) H 11/24/18 03:39 Glucose 109 mg/dL (70-105) H 11/24/18 03:39 POC Glucose 140 mg/dL (70-99) H 11/22/18 16:38 Hemoglobin A1c 6.0 % (-5.6) H 11/21/18 00:56 Uric Acid 13.0 mg/dL (2.3-7.6) H 11/21/18 00:56 Phosphorus 1.8 mg/dL (2.7-4.5) L 11/24/18 03:39 Creatine Kinase 390 Units/L (30-223) H 11/21/18 00:56 Troponin I 0.05 ng/mL (< 0.04) H* 11/22/18 09:14 C-Reactive Protein 215 mg/L (Less than 10) H 11/23/18 03:35 Albumin 3.1 g/dL (3.5-5.7) L 11/23/18 03:35 Triglycerides 386 mg/dL (< 150) H 11/22/18 05:39 VLDL Cholesterol, Calc 77 mg/dL (< 31) H 11/22/18 05:39 HDL Cholesterol 4 mg/dL (40-59) L 11/22/18 05:39 Cholesterol/HDL Ratio 21.8 (0-4.9) H 11/22/18 05:39 Free T3 2.15 pg/mL (2.50-3.90) L 11/22/18 10:46 Total T3 0.46 ng/mL (0.87-1.78) L 11/22/18 10:46 Urine Clarity Cloudy (Clear) A 11/22/18 12:12 Urine Protein 100 mg/dL (Neg-Trace) H 11/22/18 12:12 Urine Ketones Trace mg/dL (Negative) H 11/22/18 12:12 Urine Blood Large (Negative) H 11/22/18 12:12 Urine Nitrite Positive (Negative) A 11/22/18 12:12 Urine Bilirubin Moderate (Negative) H 11/22/18 12:12 Ur Leukocyte Esterase Trace (Negative) H 11/22/18 12:12 Urine Microscopic RBC 5-15 per hpf (0-3) H 11/22/18 12:12 Urine Microscopic WBC 5-15 per hpf (0-3) H 11/22/18 12:12 Ur Squamous Epith Cells Many per lpf (None-Few) H 11/22/18 12:12 Amorphous Sediment Moderate (Few) H 11/22/18 12:12 Granular Casts Few per lpf (None Seen) H 11/22/18 12:12 Ur Culture Indicated? NO. (NO) A 11/22/18 12:12 Microalb/Creat Ratio 72 mcg/mg (Less than 30) H 11/22/18 10:57 Protein/Creatinin Ratio 0.82 mg/mg (0.00-0.20) H 11/22/18 10:57 Urine Total Protein 163 mg/dL (1-14) H 11/22/18 10:57 Staphylococcus sp PCR DETECTED (Not Detect) A 11/23/18 04:23 Staph aureus (PCR) DETECTED (Not Detect) A 11/23/18 04:23 - Microbiology Findings Microbiology Findings: Microbiology, Last 48 Hours 11/23/18 04:33 Blood Culture - Preliminary Peripheral Venipuncture Gram Positive Cocci 11/23/18 04:23 Blood Culture - Preliminary Peripheral Venipuncture Gram Positive Cocci 11/21/18 16:07 Blood Culture - Preliminary Peripheral Venipuncture Gram Positive Cocci 11/21/18 16:07 Blood Culture - Preliminary Peripheral Venipuncture Gram Positive Cocci - Clinical Findings Intake & Output: Intake & Output 11/23/18 11/23/18 11/24/18 15:59 23:59 07:59 Intake Total 100 / 100 1250 / 1250 6970 / 6970 Output Total 925 / 925 1025 / 1025 425 / 425 Balance -825 / -825 225 / 225 6545 / 6545 Weight 145.5 kg Consult Discharge Plan - Plan Referrals: NONE,PCP [Primary Care Provider] - <John Lainez - Last Filed: 11/24/18 09:41> Date of Encounter: 11/24/18 Objective PUL Vital signs: Last Vital Signs Temp 97.4 F L 11/24/18 04:00 Pulse 80 11/24/18 07:00 Resp 18 11/24/18 07:00 BP 110/70 11/24/18 07:00 Pulse Ox 97 11/24/18 07:00 Results - Laboratory Findings CBC and BMP: 11/24/18 03:39 11/24/18 03:39 PT/INR, D-dimer PT 12.8 Seconds (9.4-12.1) H 11/21/18 00:56 Abnormal lab findings: Abnormal lab results RBC 3.97 M/mcL (4.19-5.50) L 11/24/18 03:39 Plt Count 68 K/mcL (140-400) L 11/24/18 03:39 MPV 13.3 fL (9.4-12.4) H 11/24/18 03:39 Band Neutrophils % 14.0 % (0-4) H 11/21/18 00:56 Lymphocytes # 0.4 K/mcL (0.6-4.6) L 11/24/18 03:39 Platelet Estimate Decreased (Normal) L 11/21/18 00:56 Immature Plt Fraction 13.4 % (1.1-6.1) H 11/24/18 03:39 ESR 69 mm/hr (0-10) H 11/23/18 10:15 PT 12.8 Seconds (9.4-12.1) H 11/21/18 00:56 Heparin Anti-Xa, Unfract 0.07 IU/mL (0.30-0.70) L 11/21/18 00:56 Potassium 3.4 mEq/L (3.5-5.1) L 11/24/18 03:39 BUN 49 mg/dL (6-20) H 11/24/18 03:39 Creatinine 1.31 mg/dL (0.70-1.30) H 11/24/18 03:39 Est GFR (Non-Af Amer) 59 (> 60) L 11/24/18 03:39 BUN/Creatinine Ratio 37 (6-26) H 11/24/18 03:39 Glucose 109 mg/dL (70-105) H 11/24/18 03:39 POC Glucose 140 mg/dL (70-99) H 11/22/18 16:38 Hemoglobin A1c 6.0 % (-5.6) H 11/21/18 00:56 Uric Acid 13.0 mg/dL (2.3-7.6) H 11/21/18 00:56 Phosphorus 1.8 mg/dL (2.7-4.5) L 11/24/18 03:39 Creatine Kinase 390 Units/L (30-223) H 11/21/18 00:56 Troponin I 0.05 ng/mL (< 0.04) H* 11/22/18 09:14 C-Reactive Protein 215 mg/L (Less than 10) H 11/23/18 03:35 Albumin 3.1 g/dL (3.5-5.7) L 11/23/18 03:35 Triglycerides 386 mg/dL (< 150) H 11/22/18 05:39 VLDL Cholesterol, Calc 77 mg/dL (< 31) H 11/22/18 05:39 HDL Cholesterol 4 mg/dL (40-59) L 11/22/18 05:39 Cholesterol/HDL Ratio 21.8 (0-4.9) H 11/22/18 05:39 Free T3 2.15 pg/mL (2.50-3.90) L 11/22/18 10:46 Total T3 0.46 ng/mL (0.87-1.78) L 11/22/18 10:46 Urine Clarity Cloudy (Clear) A 11/22/18 12:12 Urine Protein 100 mg/dL (Neg-Trace) H 11/22/18 12:12 Urine Ketones Trace mg/dL (Negative) H 11/22/18 12:12 Urine Blood Large (Negative) H 11/22/18 12:12 Urine Nitrite Positive (Negative) A 11/22/18 12:12 Urine Bilirubin Moderate (Negative) H 11/22/18 12:12 Ur Leukocyte Esterase Trace (Negative) H 11/22/18 12:12 Urine Microscopic RBC 5-15 per hpf (0-3) H 11/22/18 12:12 Urine Microscopic WBC 5-15 per hpf (0-3) H 11/22/18 12:12 Ur Squamous Epith Cells Many per lpf (None-Few) H 11/22/18 12:12 Amorphous Sediment Moderate (Few) H 11/22/18 12:12 Granular Casts Few per lpf (None Seen) H 11/22/18 12:12 Ur Culture Indicated? NO. (NO) A 11/22/18 12:12 Microalb/Creat Ratio 72 mcg/mg (Less than 30) H 11/22/18 10:57 Protein/Creatinin Ratio 0.82 mg/mg (0.00-0.20) H 11/22/18 10:57 Urine Total Protein 163 mg/dL (1-14) H 11/22/18 10:57 Staphylococcus sp PCR DETECTED (Not Detect) A 11/23/18 04:23 Staph aureus (PCR) DETECTED (Not Detect) A 11/23/18 04:23 - Microbiology Findings Microbiology Findings: Microbiology, Last 48 Hours 11/21/18 16:07 Blood Culture - Final Peripheral Venipuncture Staphylococcus aureus 11/23/18 04:23 Blood Culture - Preliminary Peripheral Venipuncture Staphylococcus aureus 11/23/18 04:33 Blood Culture - Preliminary Peripheral Venipuncture Gram Positive Cocci 11/21/18 16:07 Blood Culture - Preliminary Peripheral Venipuncture Gram Positive Cocci - Clinical Findings Intake & Output: Intake & Output 11/23/18 11/24/18 11/24/18 23:59 07:59 15:59 Intake Total 1250 / 1250 6970 / 6970 104 / 104 Output Total 1025 / 1025 850 / 850 Balance 225 / 225 6120 / 6120 104 / 104 Weight 145.5 kg - Attending Attestation I examined this patient and my medical decision-making was reviewed with the Resident Physician. I agree with the documented findings, disposition and treatment plan as described except to the extent set forth below. Patient seen and examined. Labs, radiology, chart personally reviewed. 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 Patient tried CPAP at night but due to his ren he was not able to tolerate the mask and used his oxygen. Cardiovascular: stable and no evidence of shock. Patient need to have LUIS. GI: Nutrition per dietary and GI prophylaxis per routine Heme: DVT prophylaxis per routine ID: Continue antibiotics and plan to de-escalation. Patient continued to have positive blood culture and source is still not clear. We need to right shoulder is not the source and to talk to the interventional radiology to see if they would be able to drain any of the fluid toward obtaining a sample from the right shoulder. If LUIS is negative and workup is still negative regarding case her right shoulder then he might need to be transferred to a facility where they can do MRI with ICD in place. Otherwise patient is still stable to be transferred to [facility]. Renal; urine out put and renal funtion reviewed Endorcine: blood glucose is monitored Lines: all lines checked and no evidence of infections Skin: skin care to prevent pressure ulcers per nursing routine care
[2018-11-24] MEDS: Apixaban 5 MG TABLET PO SCH ×2 (07:12→19:57)
[2018-11-24] MEDS ORDERED: Aspirin 81 MG TAB.CHEW PO SCH (09:00)
--- NOTE | 2018-11-24 09:24 | Infectious Disease Progress No ---
Date of Encounter: 11/24/18 Time of Encounter: 09:22 - Assessment and Plan (1) Septic shock Status: Resolved The patient had 3 sepsis criteria with hypotension. Likely secondary to MSSA bacteremia. Improved. Leukocytosis has resolved and he is no longer tachycardic or tachypneic. His blood pressure has normalized with IV fluids. Blood cultures drawn 11/21/18 are +2 out of 2 sets for MSSA. Repeat blood cultures drawn 11/23/18 are positive 2 sets. Recommendations: Await repeat blood cultures. Will need LUIS prior to discharge. Continue cefazolin 2 g IV every 8 hours. Will need rifampin by mouth prior to discharge as well depending on the clinical findings Duration of treatment depends on the clinical picture. Monitor renal function and dose-adjust antibiotics. (2) MSSA bacteremia Status: Acute Causative organism: MSSA. Source: Unclear. Blood cultures drawn 11/21/18 are +2 out of 2 sets. Repeat blood cultures drawn 11/23/18 are positive x2 sets as well. No endocarditis stigmata noted on exam. He does have some right shoulder pain which is concerning for possible seeding of the joint, but CT of the right shoulder was negative for septic joint. The patient has one major and one minor modified [place] criteria. Complicated due to the presence of a pacemaker. TTE negative for valvular vegetation. Possible LUIS later today. CT chest showed multiple solid and sub-solid subcentimeter pulmonary nodules:? Septic emboli. Currently on IV cefazolin. (3) ROSIE (acute kidney injury) Status: Acute Likely secondary to sepsis. Improved. Continue to trend. Management per the primary team. Does adjust antibiotics. Avoid nephrotoxins as able. (4) Shoulder pain, right Status: Acute Etiology: Unclear: ?gout CT of the right shoulder negative for septic joint. Ortho evaluation noted and appreciated. Pain management per the primary team. Qualifiers: Chronicity: acute Qualified Code(s): M25.511 - Pain in right shoulder (5) Diarrhea Status: Resolved Resolved. Qualifiers: Diarrhea type: infectious Qualified Code(s): A09 - Infectious gastroenteritis and colitis, unspecified (6) Hyponatremia Status: Resolved (7) H/O cardiac pacemaker Status: Acute Placed in 2006. Clinically does not appear infected. (8) Atrial fibrillation Status: Acute Qualifiers: Atrial fibrillation type: paroxysmal Qualified Code(s): I48.0 - Paroxysmal atrial fibrillation (9) CHF (congestive heart failure) Status: Acute Qualifiers: Heart failure type: unspecified Heart failure chronicity: chronic Qualified Code(s): I50.9 - Heart failure, unspecified - Subjective Interval history: Patient seen and examined. No acute events noted overnight. Patient states overall he feels a little bit better today, but still feels pretty poorly. Denies fevers, chills, or rigors. Denies headache or neck pain. Denies chest pain or shortness of breath, but does endorse a cough productive of a small amount of dark green sputum. Denies nausea, vomiting, diarrhea, or consti pation. He states his appetite is poor and he is NPO for possible LUIS. He denies abdominal pain. Nelson catheter was removed and he is voiding without difficulty. He reports generalized back pain that is better and severe focal right shoulder pain that is not any better today. He states his last bowel movement was two days ago. He denies any oral thrush or new skin lesions. Infect Dis PN-Objective Data - Labs CBC & Chem 7: 11/24/18 03:39 11/24/18 03:39 Labs: Laboratory Results - last 24 hr 11/23/18 11/23/18 11/23/18 03:35 04:23 10:15 WBC 6.7 RBC 3.86 L Hgb 12.8 L Hct 37.5 MCV 97.2 MCH 33.2 MCHC 34.1 RDW 13.0 Plt Count 57 L MPV 13.2 H Immature Gran % 2.0 Seg Neutrophils % 82.6 Lymphocytes % 4.1 Monocytes % 11.1 Eosinophils % 0.0 Basophils % 0.2 Neutrophils # 5.5 Lymphocytes # 0.3 L Monocytes # 0.7 Eosinophils # 0.0 Basophils # 0.0 Immature Plt Fraction 14.2 H ESR Sodium 130 L Potassium 4.0 Chloride 103 Carbon Dioxide 17 L BUN 66 H Creatinine 2.43 H Est GFR ( Amer) 35 L Est GFR (Non-Af Amer) 29 L BUN/Creatinine Ratio 27 H Glucose 130 H Calculated Osmolality 291 Calcium 8.4 L Phosphorus 3.7 Magnesium C-Reactive Protein 215 H Albumin 3.1 L Rheumatoid Factor A. baumannii (PCR) Not Detected Fátima albicans (PCR) Not Detected C. glabrata (PCR) Not Detected C. krusei (PCR) Not Detected C. parapsilosis (PCR) Not Detected C. tropicalis (PCR) Not Detected Enterobacteriac sp PCR Not Detected E. cloacae complex PCR Not Detected Enterococcus sp PCR Not Detected E. coli (PCR) Not Detected H. influenzae (PCR) Not Detected Klebsiella oxytoca PCR Not Detected Klebsiella pneumoniae Not Detected List. monocytogenes PCR Not Detected N. meningitidis (PCR) Not Detected Proteus species (PCR) Not Detected Serratia marcescens PCR Not Detected Staphylococcus sp PCR DETECTED A Staph aureus (PCR) DETECTED A mecA-Methicil Res Gene Not Detected Streptococcus sp PCR Not Detected Group A Strep DNA Not Detected Group B Strep (PCR) Not Detected Strep pneumoniae (PCR) Not Detected P. aeruginosa (PCR) Not Detected Bryanna/B-Vanco Res Genes Not Detected KPC (blaKPC) Detect PCR Not Detected 11/23/18 11/23/18 11/24/18 10:15 10:15 03:39 WBC 5.2 RBC 3.97 L Hgb 12.9 Hct 38.3 MCV 96.5 MCH 32.5 MCHC 33.7 RDW 12.9 Plt Count 68 L MPV 13.3 H Immature Gran % 1.9 Seg Neutrophils % 76.7 Lymphocytes % 6.7 Monocytes % 14.3 Eosinophils % 0.4 Basophils % 0.0 Neutrophils # 4.0 Lymphocytes # 0.4 L Monocytes # 0.7 Eosinophils # 0.0 Basophils # 0.0 Immature Plt Fraction 13.4 H ESR 69 H Sodium Potassium Chloride Carbon Dioxide BUN Creatinine Est GFR ( Amer) Est GFR (Non-Af Amer) BUN/Creatinine Ratio Glucose Calculated Osmolality Calcium Phosphorus Magnesium C-Reactive Protein Albumin Rheumatoid Factor 13 A. baumannii (PCR) Fátima albicans (PCR) C. glabrata (PCR) C. krusei (PCR) C. parapsilosis (PCR) C. tropicalis (PCR) Enterobacteriac sp PCR E. cloacae complex PCR Enterococcus sp PCR E. coli (PCR) H. influenzae (PCR) Klebsiella oxytoca PCR Klebsiella pneumoniae List. monocytogenes PCR N. meningitidis (PCR) Proteus species (PCR) Serratia marcescens PCR Staphylococcus sp PCR Staph aureus (PCR) mecA-Methicil Res Gene Streptococcus sp PCR Group A Strep DNA Group B Strep (PCR) Strep pneumoniae (PCR) P. aeruginosa (PCR) Bryanna/B-Vanco Res Genes KPC (blaKPC) Detect PCR 11/24/18 03:39 WBC RBC Hgb Hct MCV MCH MCHC RDW Plt Count MPV Immature Gran % Seg Neutrophils % Lymphocytes % Monocytes % Eosinophils % Basophils % Neutrophils # Lymphocytes # Monocytes # Eosinophils # Basophils # Immature Plt Fraction ESR Sodium 136 Potassium 3.4 L Chloride 105 Carbon Dioxide 24 BUN 49 H Creatinine 1.31 H Est GFR ( Amer) > 60 Est GFR (Non-Af Amer) 59 L BUN/Creatinine Ratio 37 H Glucose 109 H Calculated Osmolality 296 Calcium 8.7 Phosphorus 1.8 L Magnesium 1.8 C-Reactive Protein Albumin Rheumatoid Factor A. baumannii (PCR) Fátima albicans (PCR) C. glabrata (PCR) C. krusei (PCR) C. parapsilosis (PCR) C. tropicalis (PCR) Enterobacteriac sp PCR E. cloacae complex PCR Enterococcus sp PCR E. coli (PCR) H. influenzae (PCR) Klebsiella oxytoca PCR Klebsiella pneumoniae List. monocytogenes PCR N. meningitidis (PCR) Proteus species (PCR) Serratia marcescens PCR Staphylococcus sp PCR Staph aureus (PCR) mecA-Methicil Res Gene Streptococcus sp PCR Group A Strep DNA Group B Strep (PCR) Strep pneumoniae (PCR) P. aeruginosa (PCR) Bryanna/B-Vanco Res Genes KPC (blaKPC) Detect PCR Cultures: Cultures 11/23/18 04:23 Blood Culture - Preliminary Peripheral Venipuncture Staphylococcus aureus 11/23/18 04:33 Blood Culture - Preliminary Peripheral Venipuncture Gram Positive Cocci 11/21/18 16:07 Blood Culture - Preliminary Peripheral Venipuncture Gram Positive Cocci 11/21/18 16:07 Blood Culture - Preliminary Peripheral Venipuncture Gram Positive Cocci 11/20/18 16:46 Influenza Types A,B Antigen - Final Nasopharyngeal Serology 11/23/18 11/23/18 11/23/18 Range/Units 04:23 03:35 03:30 Urine Color (Yellow) Urine Clarity (Clear) Urine pH (5.0-8.0) pH Units Ur Specific [place] (1.010-1.025) Urine Protein (Neg-Trace) mg/dL Urine Glucose (UA) (Normal) mg/dL Urine Ketones (Negative) mg/dL Urine Blood (Negative) Urine Nitrite (Negative) Urine Bilirubin (Negative) Urine Urobilinogen (Normal) mg/dL Ur Leukocyte Esterase (Negative) Urine Microscopic RBC (0-3) per hpf Urine Microscopic WBC (0-3) per hpf Ur Eosinophil Smear (None Seen) % Ur Squamous Epith Cells (None-Few) per lpf Amorphous Sediment (Few) Urine Bacteria (None-Few) per hpf Hyaline Casts (None-Few) per lpf Granular Casts (None Seen) per lpf Ur Culture Indicated? (NO) Urine Osmolality 501 (300-1090) mOsm/kg Urine Creatinine mg/dL Urine Microalbumin mg/L Microalb/Creat Ratio (Less than 30) mcg/mg Protein/Creatinin Ratio (0.00-0.20) mg/mg Urine Sodium mEq/L Urine Urea Nitrogen mg/dL Urine Total Protein (1-14) mg/dL A. baumannii (PCR) Not Detected (Not Detect) Fátima albicans (PCR) Not Detected (Not Detect) C. glabrata (PCR) Not Detected (Not Detect) C. krusei (PCR) Not Detected (Not Detect) C. parapsilosis (PCR) Not Detected (Not Detect) C. tropicalis (PCR) Not Detected (Not Detect) Enterobacteriac sp PCR Not Detected (Not Detect) E. cloacae complex PCR Not Detected (Not Detect) Enterococcus sp PCR Not Detected (Not Detect) E. coli (PCR) Not Detected (Not Detect) H. influenzae (PCR) Not Detected (Not Detect) HIV Ag/Ab Combo Qual Nonreactive (Nonreactive) Klebsiella oxytoca PCR Not Detected (Not Detect) Klebsiella pneumoniae Not Detected (Not Detect) List. monocytogenes PCR Not Detected (Not Detect) N. meningitidis (PCR) Not Detected (Not Detect) Proteus species (PCR) Not Detected (Not Detect) Serratia marcescens PCR Not Detected (Not Detect) Staphylococcus sp PCR DETECTED A (Not Detect) Staph aureus (PCR) DETECTED A (Not Detect) mecA-Methicil Res Gene Not Detected (Not Detect) Streptococcus sp PCR Not Detected (Not Detect) Group A Strep DNA Not Detected (Not Detect) Group B Strep (PCR) Not Detected (Not Detect) Strep pneumoniae (PCR) Not Detected (Not Detect) P. aeruginosa (PCR) Not Detected (Not Detect) Bryanna/B-Vanco Res Genes Not Detected (Not Detect) KPC (blaKPC) Detect PCR Not Detected (Not Detect) 11/22/18 11/22/18 11/22/18 Range/Units 16:55 12:12 10:57 Urine Color Dark Yellow (Yellow) Urine Clarity Cloudy A (Clear) Urine pH 5.0 (5.0-8.0) pH Units Ur Specific [place] 1.022 (1.010-1.025) Urine Protein 100 H (Neg-Trace) mg/dL Urine Glucose (UA) Normal (Normal) mg/dL Urine Ketones Trace H (Negative) mg/dL Urine Blood Large H (Negative) Urine Nitrite Positive A (Negative) Urine Bilirubin Moderate H (Negative) Urine Urobilinogen Normal (Normal) mg/dL Ur Leukocyte Esterase Trace H (Negative) Urine Microscopic RBC 5-15 H (0-3) per hpf Urine Microscopic WBC 5-15 H (0-3) per hpf Ur Eosinophil Smear 0 (None Seen) % Ur Squamous Epith Cells Many H (None-Few) per lpf Amorphous Sediment Moderate H (Few) Urine Bacteria Few (None-Few) per hpf Hyaline Casts Few (None-Few) per lpf Granular Casts Few H (None Seen) per lpf Ur Culture Indicated? NO. A (NO) Urine Osmolality (300-1090) mOsm/kg Urine Creatinine 198 200 mg/dL Urine Microalbumin 143 mg/L Microalb/Creat Ratio 72 H (Less than 30) mcg/mg Protein/Creatinin Ratio 0.82 H (0.00-0.20) mg/mg Urine Sodium 18.5 mEq/L Urine Urea Nitrogen 631 mg/dL Urine Total Protein 163 H (1-14) mg/dL A. baumannii (PCR) (Not Detect) Fátima albicans (PCR) (Not Detect) C. glabrata (PCR) (Not Detect) C. krusei (PCR) (Not Detect) C. parapsilosis (PCR) (Not Detect) C. tropicalis (PCR) (Not Detect) Enterobacteriac sp PCR (Not Detect) E. cloacae complex PCR (Not Detect) Enterococcus sp PCR (Not Detect) E. coli (PCR) (Not Detect) H. influenzae (PCR) (Not Detect) HIV Ag/Ab Combo Qual (Nonreactive) Klebsiella oxytoca PCR (Not Detect) Klebsiella pneumoniae (Not Detect) List. monocytogenes PCR (Not Detect) N. meningitidis (PCR) (Not Detect) Proteus species (PCR) (Not Detect) Serratia marcescens PCR (Not Detect) Staphylococcus sp PCR (Not Detect) Staph aureus (PCR) (Not Detect) mecA-Methicil Res Gene (Not Detect) Streptococcus sp PCR (Not Detect) Group A Strep DNA (Not Detect) Group B Strep (PCR) (Not Detect) Strep pneumoniae (PCR) (Not Detect) P. aeruginosa (PCR) (Not Detect) Bryanna/B-Vanco Res Genes (Not Detect) KPC (blaKPC) Detect PCR (Not Detect) 11/21/18 11/21/18 Range/Units 16:07 05:00 Urine Color Dark Yellow (Yellow) Urine Clarity Cloudy A (Clear) Urine pH 5.5 (5.0-8.0) pH Units Ur Specific [place] 1.015 (1.010-1.025) Urine Protein 100 H (Neg-Trace) mg/dL Urine Glucose (UA) Normal (Normal) mg/dL Urine Ketones Trace H (Negative) mg/dL Urine Blood Large H (Negative) Urine Nitrite Negative (Negative) Urine Bilirubin Small H (Negative) Urine Urobilinogen Normal (Normal) mg/dL Ur Leukocyte Esterase Negative (Negative) Urine Microscopic RBC 30-50 H (0-3) per hpf Urine Microscopic WBC 15-30 H (0-3) per hpf Ur Eosinophil Smear (None Seen) % Ur Squamous Epith Cells Many H (None-Few) per lpf Amorphous Sediment (Few) Urine Bacteria None Seen (None-Few) per hpf Hyaline Casts (None-Few) per lpf Granular Casts (None Seen) per lpf Ur Culture Indicated? (NO) Urine Osmolality (300-1090) mOsm/kg Urine Creatinine mg/dL Urine Microalbumin mg/L Microalb/Creat Ratio (Less than 30) mcg/mg Protein/Creatinin Ratio (0.00-0.20) mg/mg Urine Sodium mEq/L Urine Urea Nitrogen mg/dL Urine Total Protein (1-14) mg/dL A. baumannii (PCR) Not Detected (Not Detect) Fátima albicans (PCR) Not Detected (Not Detect) C. glabrata (PCR) Not Detected (Not Detect) C. krusei (PCR) Not Detected (Not Detect) C. parapsilosis (PCR) Not Detected (Not Detect) C. tropicalis (PCR) Not Detected (Not Detect) Enterobacteriac sp PCR Not Detected (Not Detect) E. cloacae complex PCR Not Detected (Not Detect) Enterococcus sp PCR Not Detected (Not Detect) E. coli (PCR) Not Detected (Not Detect) H. influenzae (PCR) Not Detected (Not Detect) HIV Ag/Ab Combo Qual (Nonreactive) Klebsiella oxytoca PCR Not Detected (Not Detect) Klebsiella pneumoniae Not Detected (Not Detect) List. monocytogenes PCR Not Detected (Not Detect) N. meningitidis (PCR) Not Detected (Not Detect) Proteus species (PCR) Not Detected (Not Detect) Serratia marcescens PCR Not Detected (Not Detect) Staphylococcus sp PCR Not Detected (Not Detect) Staph aureus (PCR) DETECTED A (Not Detect) mecA-Methicil Res Gene Not Detected (Not Detect) Streptococcus sp PCR Not Detected (Not Detect) Group A Strep DNA Not Detected (Not Detect) Group B Strep (PCR) Not Detected (Not Detect) Strep pneumoniae (PCR) Not Detected (Not Detect) P. aeruginosa (PCR) Not Detected (Not Detect) Bryanna/B-Vanco Res Genes N/A (Not Detect) KPC (blaKPC) Detect PCR N/A (Not Detect) - Impressions Impressions Shoulder CT 11/23/18 12:00 IMPRESSION: No CT evidence of septic arthritis. Mild subcutaneous edema about the right shoulder, consider mild cellulitis. No abscess. D/ / 11/23/2018 13:28:19 Joey Wright MD / Suellen Hayward Interpreting Provider: Joey Wright MD Exam - Constitutional Vitals: Temp Pulse Resp BP Pulse Ox 97.4 F L 80 18 110/70 97 11/24/18 04:00 11/24/18 07:00 11/24/18 07:00 11/24/18 07:00 11/24/18 07:00 General appearance: cooperative, no acute distress, obese - Head Head exam: Present: atraumatic, normal inspection, normocephalic - Eye Eye exam: Present: EOMI, normal appearance, PERRL Pupils: Present: normal accommodation Additional comments: No subconjunctival hemorrhage noted. - ENT ENT exam: Present: mucous membranes moist - Neck Neck exam: Present: normal inspection - Respiratory Respiratory exam: Present: CTAB. Absent: rales, respiratory distress, rhonchi, wheezes - Cardiovascular Cardiovascular exam: Present: irregular rhythm. Absent: tachycardia - GI/Abdominal GI/Abdominal exam: Present: distended (obese), normal bowel sounds, soft. Absen t: tenderness - Extremities Exam Extremities exam: Absent: normal inspection Additional comments: Callous formation with stage II ulcer noted to the left foot overlying MT #1. No erythema, warmth, tenderness or drainage noted. No endocarditis stigmata noted. - Back Exam Back exam: Present: normal inspection. Absent: paraspinal tenderness, vertebral tenderness - Neurological Exam Neurological exam: Present: alert, oriented X3, no focal deficits - Psychiatric Psychiatric exam: Present: normal affect, normal mood - Skin Skin exam: Present: dry, intact, normal color, warm Consult Discharge Plan - Plan Referrals: NONE,PCP [Primary Care Provider] - - Attending Attestation I examined this patient and my medical decision-making was reviewed with the Resident Physician. I agree with the documented findings, disposition and treatment plan as described except to the extent set forth below.
--- NOTE | 2018-11-24 09:54 | Nephrology Progress Note ---
Date of Encounter: 11/24/18 Time of Encounter: 09:25 - Assessment and Plan (1) ROSIE (acute kidney injury) Current Visit: Yes Status: Acute Acute kidney injury with unknown baseline thought to be related to prerenal azotemia due to septic shock w/ confirmed MSSA bacteremia vs. ATN from dehydration due to gastroenteritis. Patient's renal function improved significantly from yesterday and from admission; Creatinine 1.31 today from 2.43 yesterday and 2.98 upon admission; BUN 49 today from 66 yesterday and 47 upon admission; GFR 59 today from 29 yesterday and 23 upon admission; bicarb 24 today from 17 yesterday post sodium bicarb IV and 16 upon admission. Continue fluids, avoid nephrotoxins. ROSIE seems to have resolved, nephrology is signing off. Thank you for consulting [facility]. (2) Dehydration Current Visit: Yes Status: Acute Patient noted to be dehydrated on clinical examination upon admission, but urine output back to normal per patient after administration of IVF. Continue fluids and continue monitoring I&O and renal function. (3) Elevated troponin Current Visit: Yes Status: Resolved (4) Heart failure Current Visit: Yes Status: Chronic Qualifiers: Heart failure type: systolic Heart failure chronicity: chronic Qualified Code(s): I50.22 - Chronic systolic (congestive) heart failure (5) Hypertension Current Visit: Yes Status: Chronic Patient noted to have PMH of HTN. Blood pressure 96/58 at 0900 11/23/18 likely due to septic shock. Continue holding FAVIOLA-I and diuretic per primary team Qualifiers: Hypertension type: essential hypertension Qualified Code(s): I10 - Essential (primary) hypertension (6) Hyperuricemia Current Visit: Yes Status: Acute Uric acid noted at 13.0 on 11/21/18. Hospitalist is holding colchicine and allo purinol due to ROSIE/dehydration. Patient noted shoulder pain possibly due to gout, septic joint ruled out via shoulder CT. (7) Hyponatremia Current Visit: Yes Status: Resolved Likely due to sepsis vs. dehydration secondary to gastrointestinal symptoms. Sodium increased to 136 today from 127 upon admission with fluid resuscitation with NS and two IV boluses of sodium bicarbonate. Continue monitoring. (8) Atrial fibrillation Current Visit: Yes Status: Acute Qualifiers: Atrial fibrillation type: paroxysmal Qualified Code(s): I48.0 - Paroxysmal atrial fibrillation (9) Metabolic acidosis Current Visit: Yes Status: Resolved Acidosis possibly due to sepsis vs. gastrointestinal symptoms. Bicarb 24 on 11/24/18, increased from 16 on 11/20/18 upon admission with addition of two boluses of IV sodium bicarbonate. Acidosis appears to have resolved. (10) Septic shock Current Visit: Yes Status: Suspected Patient met 2/4 SIRS criteria with 2/2 confirmed serum culture for MSSA. Hypotension persisting even with fluid resuscitation. ID is on board, monitor renal function and renally dose antibiotics. (11) MSSA bacteremia Current Visit: Yes Status: Acute Subjective Principal diagnosis: Chest pain Interval history: Mr. Tineo is a 48 year old man seen bedside in ICU with ROSIE of unknown origin, dehydration, MSSA bacteremic sepsis-related hypotension with PMH of CHF s/p AICD placement, diabetes, HLD, resolved AFib s/p ablation, gout and HTN. Patient notes that his shoulder pain persists and has not gotten better. Ortho consulted due to ID recommendation and agreed with CT for shoulder; scan showed no evidence of septic arthritis, mild subcutaneous edema with possible mild cellulitis. He also notes that his diarrhea has resolved and Nelson catheter has been removed and he is urinating normally. He admits lack of appetite persists but denies fever, chills, nausea, vomiting, chest pain, palpitations, shortness of breath, abdominal pain, blood in stool, blood in urine, frothy urine, or burning on urination. Objective - Vital Signs Vital signs: Vital Signs Temp Pulse Resp BP Pulse Ox 11/24/18 07:00 80 18 110/70 97 11/24/18 04:00 97.4 F L 66 18 93/51 95 11/24/18 03:24 76 11/24/18 00:00 71 20 98/56 97 11/23/18 23:40 69 11/23/18 23:32 97.9 F 11/23/18 21:04 19 98 11/23/18 19:59 97.9 F 11/23/18 19:45 72 11/23/18 19:00 67 20 111/68 97 11/23/18 18:00 69 16 105/63 95 11/23/18 17:00 67 16 100/66 97 11/23/18 16:00 66 14 101/62 96 11/23/18 15:00 74 14 92/53 95 11/23/18 14:00 70 16 86/54 97 11/23/18 12:19 97.3 F L 11/23/18 12:00 66 14 86/52 94 11/23/18 11:00 66 16 88/52 94 11/23/18 10:00 68 16 95/62 94 Intake and Output 11/23/18 11/24/18 11/24/18 23:59 07:59 15:59 Intake Total 1250 / 1250 6970 / 6970 104 / 104 Output Total 1025 / 1025 850 / 850 Balance 225 / 225 6120 / 6120 104 / 104 Intake: IV Fluids 1250 / 1250 6970 / 6970 104 / 104 Sodium Bicarbonate 150 MEQ In 1150 / 1150 Dextrose 5% 1,000 ML @ 250 mls/ hr IVC .[id number] [facility] Rx#: [id number] Magnesium Sulfate 2 GM In 0.9 % 104 / 104 Sodium Chloride 100 ML @ 52 mls/hr IVPB Q6H PRN Rx#: [id number] Ancef 2,000 MG In 0.9 % Sodium 100 / 100 200 / 200 Chloride 100 ML @ 200 mls/hr IVPB Q8H [facility] Rx#:[id number] Output: Urine 225 / 225 850 / 850 Catheter 800 / 800 Other: Weight 145.5 kg Patient Weight 11/24/18 23:59 Weight 145.5 kg - General Appearance Exam: General: AAO, notably uncomfortable at time of exam HEENT: mucus membranes moist, no conjunctival pallor CV: RRR, no murmurs, S1 present, S2 present, no LE edema Resp: LCTAB, no accessory muscle use noted GI: soft and non-tender, no distension, no guarding. Bowel sounds present. Neuro: A&Ox3. No focal deficits - Lab 11/24/18 03:39 11/24/18 03:39 Most recent lab results Calcium 8.7 mg/dL (8.6-10.3) 11/24/18 03:39 Phosphorus 1.8 mg/dL (2.7-4.5) L 11/24/18 03:39 Magnesium 1.8 mg/dL (1.6-2.6) 11/24/18 03:39 Urine Creatinine 198 mg/dL 11/22/18 16:55 Urine Sodium 18.5 mEq/L 11/22/18 10:57 Urine Total Protein 163 mg/dL (1-14) H 11/22/18 10:57 Consult Discharge Plan - Plan Referrals: NONE,PCP [Primary Care Provider] -
--- NOTE | 2018-11-24 12:53 | Orthopedics Progress Note ---
Date of Encounter: 11/24/18 Time of Encounter: 12:52 - Assessment and Plan (1) Shoulder pain, right Current Visit: Yes Status: Acute CT scan revealed no fluid in GH joint space. No abscess. No aspiration performed. At this time, there does not appear to be any intra-articular involvement with regards to septic joint. He continues to have AC tenderness, may be associated with AC arthritis versus infectious process. No identifiable region for aspiration at this time. Plan: Encourge PT OT as patient can tolerated. Continue to ICE and elevate. At this time, Ortho will sign off, will re-evaluate at request for any further needs MRI would be beneficial for further soft tissue evaluation but at this time he is unable to get this due to interrogation device. Discussion of transfer has been ongoing, At this time, Ortho will sign off, will re-evaluate at request for any further needs. Qualifiers: Chronicity: acute Qualified Code(s): M25.511 - Pain in right shoulder Subjective Principal diagnosis: Right Shoulder pain Interval history: Patient remains in ICU. Improvement with right shoulder pain since Lidoderm patch added. No worsening of pain at this time. ROM remains limited. Afebrile, vitals stable. Hypotension remains Blood cultures + 2/2 from 11/23 Exam: No effusion, no gross erythema noted. Tenderness along AC joint. No jt line tenderness ROM: AROM limited, PROM improved - pain improved Strength weak NV intact. Objective Vital signs: Vital Signs Temp Pulse Resp BP Pulse Ox 11/24/18 12:00 86 18 95/69 95 11/24/18 07:00 80 18 110/70 97 11/24/18 04:00 97.4 F L 66 18 93/51 95 11/24/18 03:24 76 11/24/18 00:00 71 20 98/56 97 11/23/18 23:40 69 11/23/18 23:32 97.9 F 11/23/18 21:04 19 98 11/23/18 19:59 97.9 F 11/23/18 19:45 72 11/23/18 19:00 67 20 111/68 97 11/23/18 18:00 69 16 105/63 95 11/23/18 17:00 67 16 100/66 97 11/23/18 16:00 66 14 101/62 96 11/23/18 15:00 74 14 92/53 95 11/23/18 14:00 70 16 86/54 97 Intake and Output 11/23/18 11/24/18 11/24/18 23:59 07:59 15:59 Intake Total 1250 / 1250 6970 / 6970 104 / 104 Output Total 1025 / 1025 850 / 850 120 / 120 Balance 225 / 225 6120 / 6120 -16 / -16 Intake: IV Fluids 1250 / 1250 6970 / 6970 104 / 104 Sodium Bicarbonate 150 MEQ In 1150 / 1150 Dextrose 5% 1,000 ML @ 250 mls/ hr IVC .[id number] [facility] Rx#: [id number] Magnesium Sulfate 2 GM In 0.9 % 104 / 104 Sodium Chloride 100 ML @ 52 mls/hr IVPB Q6H PRN Rx#: [id number] Ancef 2,000 MG In 0.9 % Sodium 100 / 100 200 / 200 Chloride 100 ML @ 200 mls/hr IVPB Q8H [facility] Rx#:[id number] Output: Urine 225 / 225 850 / 850 120 / 120 Catheter 800 / 800 Other: Stool Size Small Stool Consistency formed Stool Color Brown Weight 145.5 kg Patient Weight 11/24/18 23:59 Weight 145.5 kg - Labs CBC & BMP: 11/24/18 03:39 11/24/18 03:39 Labs: Abnormal lab results RBC 3.97 M/mcL (4.19-5.50) L 11/24/18 03:39 Plt Count 68 K/mcL (140-400) L 11/24/18 03:39 MPV 13.3 fL (9.4-12.4) H 11/24/18 03:39 Band Neutrophils % 14.0 % (0-4) H 11/21/18 00:56 Lymphocytes # 0.4 K/mcL (0.6-4.6) L 11/24/18 03:39 Platelet Estimate Decreased (Normal) L 11/21/18 00:56 Immature Plt Fraction 13.4 % (1.1-6.1) H 11/24/18 03:39 ESR 69 mm/hr (0-10) H 11/23/18 10:15 PT 12.8 Seconds (9.4-12.1) H 11/21/18 00:56 Heparin Anti-Xa, Unfract 0.07 IU/mL (0.30-0.70) L 11/21/18 00:56 Potassium 3.4 mEq/L (3.5-5.1) L 11/24/18 03:39 BUN 49 mg/dL (6-20) H 11/24/18 03:39 Creatinine 1.31 mg/dL (0.70-1.30) H 11/24/18 03:39 Est GFR (Non-Af Amer) 59 (> 60) L 11/24/18 03:39 BUN/Creatinine Ratio 37 (6-26) H 11/24/18 03:39 Glucose 109 mg/dL (70-105) H 11/24/18 03:39 POC Glucose 140 mg/dL (70-99) H 11/22/18 16:38 Hemoglobin A1c 6.0 % (-5.6) H 11/21/18 00:56 Uric Acid 13.0 mg/dL (2.3-7.6) H 11/21/18 00:56 Phosphorus 1.8 mg/dL (2.7-4.5) L 11/24/18 03:39 Creatine Kinase 390 Units/L (30-223) H 11/21/18 00:56 Troponin I 0.05 ng/mL (< 0.04) H* 11/22/18 09:14 C-Reactive Protein 215 mg/L (Less than 10) H 11/23/18 03:35 Albumin 3.1 g/dL (3.5-5.7) L 11/23/18 03:35 Triglycerides 386 mg/dL (< 150) H 11/22/18 05:39 VLDL Cholesterol, Calc 77 mg/dL (< 31) H 11/22/18 05:39 HDL Cholesterol 4 mg/dL (40-59) L 11/22/18 05:39 Cholesterol/HDL Ratio 21.8 (0-4.9) H 11/22/18 05:39 Free T3 2.15 pg/mL (2.50-3.90) L 11/22/18 10:46 Total T3 0.46 ng/mL (0.87-1.78) L 11/22/18 10:46 Urine Clarity Cloudy (Clear) A 11/22/18 12:12 Urine Protein 100 mg/dL (Neg-Trace) H 11/22/18 12:12 Urine Ketones Trace mg/dL (Negative) H 11/22/18 12:12 Urine Blood Large (Negative) H 11/22/18 12:12 Urine Nitrite Positive (Negative) A 11/22/18 12:12 Urine Bilirubin Moderate (Negative) H 11/22/18 12:12 Ur Leukocyte Esterase Trace (Negative) H 11/22/18 12:12 Urine Microscopic RBC 5-15 per hpf (0-3) H 11/22/18 12:12 Urine Microscopic WBC 5-15 per hpf (0-3) H 11/22/18 12:12 Ur Squamous Epith Cells Many per lpf (None-Few) H 11/22/18 12:12 Amorphous Sediment Moderate (Few) H 11/22/18 12:12 Granular Casts Few per lpf (None Seen) H 11/22/18 12:12 Ur Culture Indicated? NO. (NO) A 11/22/18 12:12 Microalb/Creat Ratio 72 mcg/mg (Less than 30) H 11/22/18 10:57 Protein/Creatinin Ratio 0.82 mg/mg (0.00-0.20) H 11/22/18 10:57 Urine Total Protein 163 mg/dL (1-14) H 11/22/18 10:57 Staphylococcus sp PCR DETECTED (Not Detect) A 11/23/18 04:23 Staph aureus (PCR) DETECTED (Not Detect) A 11/23/18 04:23 Consult Discharge Plan - Plan Referrals: NONE,PCP [Primary Care Provider] -
[2018-11-24] MEDS ORDERED: Lidocaine Viscous Oral Soln 15 ML SOLUTION MM PRN (14:26)
[2018-11-24] MEDS ORDERED: *HR* FentaNYL (PF) 100 MCG/2 ML VIAL IVP PRN (14:26)
[2018-11-24] MEDS ORDERED: Tetracaine/Benzocaine/Butamben 1 SPRAY AEROSOL MM ONE (14:27)
[2018-11-24] MEDS ORDERED: 0.9 % Sodium Chloride 500 ML IVC ONE (14:27)
[2018-11-24] MEDS ORDERED: *HR* Midazolam HCl 5 MG/5 ML VIAL IVP PRN (14:27)
[2018-11-24 15:18] VITALS: BP 128/73
--- NOTE | 2018-11-24 16:46 | Discharge Summary ---
<Herb Conner - Last Filed: 11/25/18 06:39> - NOTES TO OUTPATIENT PROVIDER Notes to Outpatient Provider: Patient admitted with nausea, vomiting, diarrhea x 3 days. Found to be bacteremic with pansensitive staph aureus on blood cultures x2 on 11/21 and x2 on 11/23. Being treated with ancef. Vegetation found on RA lead measuring [id number]. Orders not resulted at time of discharge: Pending orders 11/23/18 04:33 Culture,Blood [BC] AM 0400 11/23/18 12:00 Culture,Anaerobic [RM] Stat Culture,Body Fluid [RM] Stat Gram Stain [RM] Stat 11/23/18 17:53 Cell Count w Diff, Body Fluid [BF] Stat 11/25/18 04:00 BMP [Basic Metabolic Panel] AM 0400 Complete Blood Count [HEME] AM 0400 11/25/18 05:00 Culture,Blood [BC] Routine 11/26/18 04:00 BMP [Basic Metabolic Panel] AM 0400 Complete Blood Count [HEME] AM 0400 11/27/18 04:00 BMP [Basic Metabolic Panel] AM 0400 Complete Blood Count [HEME] AM 0400 Date of Encounter: 11/25/18 Time of Encounter: 16:43 - Discharge Diagnosis (1) Septic shock Priority: Primary Status: Resolved Comments: - During admission has met 2/4 SIRS criteria with fever 102, WBC 12.8 on a dmission. Also strong possibility that this may be cardiogenic. - 0/4 sirs criteria today. Has been afebrile - Suspect that leukocytosis however may be related to being intracascularly dry, has downtrended with fluids - Lactic acid wnl at 1.1, BP has now responded to more aggressive fluids. - Suspected source: unclear. Some suspicion for septic shoulder, however ortho, ID believe this unlikely and CT does not show obvious fluid collection - Alternatively, patient does have in ICD placed in 2006 which does not appear obviously infected on clinical exam or CT - Organism: MSSA on PCR. Positive blood cultures x2 on 11/21. - Repeat cultures 11/23/18 again positive for MSSA x2 - Evidence of end organ damage with acute renal failure, improving. - Most recent BP has improved to 110s systolic - UA obtained on admission not suggestive of infection. Repeat on 09/22 is again not suggestive of infection - Rapid Flu negative on 11/20/18 - CXR on 11/20/18 shows cardiomegaly with no acute process. - CT of the chest and abdomen obtained 11/22/18 does not show evidence of obvious infectious source. No evidence of fluid overload on lungs either - ID has been consulted. - TTE does not show evidence of vegetation. - LUIS today (11/24) with [id number] vegetation on RA lead. Likely source of bacteremia. Will attempt transfer to [facility]. Plan -Suspected patient was hypovolemic which was contributing to his hypotension. This has improved with fluid resuscitation - Per infectious disease, recommend continuing Ancef, pansensitive (2) ROSIE (acute kidney injury) Priority: Secondary Status: Acute Comments: - Likely pre-renal in etiology secondary to shock - BUN/Cr of improved to 49/1.31 from 73/3.92 after fluid resuscitation - No hx of CKD - Patient clinical fluid status is improved, good urine output. - Nephro following - Urine studies obtained after fluid hydration however still suggest a prerenal etiology Plan - Defer to nephro, appreciate input - Will attempt to rehydrate as able as above. (3) Atrial fibrillation Priority: Secondary Status: Acute Comments: - Continue home carvedilol, eliquis Qualifiers: Atrial fibrillation type: paroxysmal Qualified Code(s): I48.0 - Paroxysmal atrial fibrillation (4) Diarrhea Priority: Secondary Status: Resolved Qualifiers: Diarrhea type: infectious Qualified Code(s): A09 - Infectious gastroenteritis and colitis, unspecified (5) Elevated troponin Priority: Secondary Status: Resolved (6) Heart failure Priority: Secondary Status: Chronic Comments: - Known HFrEF with most recent echo 11/21/18. EF 35-40%, moderate global dysfunciton. Indeterminate diastolic dysfunction. S/p ICD in 2006 - Does not appear to be in exacerbation - Continue home meds. - No evidence of fluid overload on CT Qualifiers: Heart failure type: systolic Heart failure chronicity: chronic Qualified Code(s): I50.22 - Chronic systolic (congestive) heart failure (7) Hypertension Priority: Secondary Status: Chronic Qualifiers: Hypertension type: essential hypertension Qualified Code(s): I10 - E ssential (primary) hypertension (8) Metabolic acidosis Priority: Secondary Status: Resolved (9) Shoulder pain, right Priority: Secondary Status: Acute Comments: - Patient reports persistent right shoulder pain - Reports consistent with gout flare, takes colchicine at home - There is some concern however that this may be related to septic joint and source for MSSA bacteremia - Unable to get MRI due to ICD - CT chest did not show any obvious abnormality - Have consulted ortho for possible joint aspiration vs injection - unable to give NSAIDs due to ROSIE as above Qualifiers: Chronicity: acute Qualified Code(s): M25.511 - Pain in right shoulder (10) DVT prophylaxis Priority: Secondary Status: Acute - Discharge Medications Home Medications: RX: Apixaban [Eliquis] 5 mg PO BID 11/20/18 [History] RX: Carvedilol [Coreg] 25 mg PO BID 11/20/18 [History] RX: Furosemide [Lasix] 40 mg DAILY 11/20/18 [History] RX: Isosorbide MONOnitrate [Isosorbide Mononitrate ER] 60 mg DAILY 11/20/18 [History] RX: Lovastatin 40 mg PO DAILY 11/20/18 [History] RX: Metformin HCl [Glucophage] 1,000 mg PO BID 11/20/18 [History] RX: Sacubitril/Valsartan 24/26 mg [Entresto 24 mg-26 mg Tablet] 1 tab PO BID 11/20/18 [History] RX: Spironolactone 25 mg PO DAILY 11/20/18 [History] RX: Aspirin [Adult Aspirin Regimen] 81 mg PO DAILY 11/21/18 [History] RX: Colchicine [Colcrys] 0.6 mg PO DAILY PRN 11/21/18 [History] Allergies/Adverse Reactions: Allergy/AdvReac Type Severity Reaction Status Date / Time No Known Allergies Allergy Verified 11/20/18 16:20 Labs on day of discharge: Labs from last 24 hours 11/24/18 11/24/18 11/23/18 03:39 03:39 04:23 WBC 5.2 RBC 3.97 L Hgb 12.9 Hct 38.3 MCV 96.5 MCH 32.5 MCHC 33.7 RDW 12.9 Plt Count 68 L MPV 13.3 H Immature Gran % 1.9 Seg Neutrophils % 76.7 Lymphocytes % 6.7 Monocytes % 14.3 Eosinophils % 0.4 Basophils % 0.0 Neutrophils # 4.0 Lymphocytes # 0.4 L Monocytes # 0.7 Eosinophils # 0.0 Basophils # 0.0 Immature Plt Fraction 13.4 H Sodium 136 Potassium 3.4 L Chloride 105 Carbon Dioxide 24 BUN 49 H Creatinine 1.31 H Est GFR ( Amer) > 60 Est GFR (Non-Af Amer) 59 L BUN/Creatinine Ratio 37 H Glucose 109 H Calculated Osmolality 296 Calcium 8.7 Phosphorus 1.8 L Magnesium 1.8 A. baumannii (PCR) Not Detected Fátima albicans (PCR) Not Detected C. glabrata (PCR) Not Detected C. krusei (PCR) Not Detected C. parapsilosis (PCR) Not Detected C. tropicalis (PCR) Not Detected Enterobacteriac sp PCR Not Detected E. cloacae complex PCR Not Detected Enterococcus sp PCR Not Detected E. coli (PCR) Not Detected H. influenzae (PCR) Not Detected Klebsiella oxytoca PCR Not Detected Klebsiella pneumoniae Not Detected List. monocytogenes PCR Not Detected N. meningitidis (PCR) Not Detected Proteus species (PCR) Not Detected Serratia marcescens PCR Not Detected Staphylococcus sp PCR DETECTED A Staph aureus (PCR) DETECTED A mecA-Methicil Res Gene Not Detected Streptococcus sp PCR Not Detected Group A Strep DNA Not Detected Group B Strep (PCR) Not Detected Strep pneumoniae (PCR) Not Detected P. aeruginosa (PCR) Not Detected Bryanna/B-Vanco Res Genes Not Detected KPC (blaKPC) Detect PCR Not Detected Preliminary micro results at discharge 11/23/18 04:23 Blood Culture - Preliminary Peripheral Venipuncture Staphylococcus aureus - Impressions ITS Impressions Chest X-Ray 11/20/18 16:36 IMPRESSION: Cardiomegaly. No radiographic evidence of acute pulmonary disease. D/ / Malick Murphy / Malick Murphy Interpreting Provider: Malick Murphy Echocardiogram 11/20/18 21:08 Impressions: LVEF 35-40%. Moderate global left ventricular systolic dysfunction. Mild concentric left ventricular hypertrophy. Indeterminate diastolic function. Moderately dilated left atrium. Normal right ventricular structure and function. No significant valvular dysfunction. No pulmonary hypertension. Left Ventricular Wall Motion: Rest Echo Findings The apex, apical inferior, mid inferior, basal inferior, apical anterior, mid anterior, basal anterior, apical septal, mid inferior septal, basal inferior septal, apical lateral, mid anterior lateral, basal anterior lateral, mid anterior septal, mid inferior lateral, basal anterior septal and basal inferior lateral brand were hypokinetic. Findings: Study Quality * Technically adequate exam. ECG Findings * Paced rhythm. Left Ventricle * LVEF 35-40%. * Normal LV chamber size. * Mild concentric left ventricular hypertrophy. * Moderate global left ventricular systolic dysfunction. * Indeterminate diastolic function. * Definity echo contrast was not used. Right Ventricle * Normal right ventricular structure and function. Left Atrium * Moderately dilated left atrium. Right Atrium * Normal right atrial size. Interatrial Septum * Interatrial septum not well evaluated. Aortic Valve * Aortic valve not well visualized. * No aortic stenosis. * Trace aortic regurgitation. Mitral Valve * Mitral valve not well visualized. * No mitral stenosis. * No mitral regurgitation. Tricuspid Valve * Tricuspid valve not well visualized. * No tricuspid stenosis. * Trace tricuspid regurgitation. * Estimated RVSP is 32 mmHg. * Estimated RA pressure is 3 mmHg. * No pulmonary hypertension. Pulmonic Valve * Pulmonic valve is not well visualized. * No pulmonic stenosis. * No pulmonic regurgitation. Aorta * Normally sized aortic root. Pericardium * The pericardium appears normal. IVC * Normal IVC dimensions and inspiratory collapse. Device lead * A device lead was visualized in the right atrium and right ventricle. Retroperitoneum Ultrasound 11/21/18 16:00 IMPRESSION: Normal sonographic appearance of the kidneys. Nondiagnostic evaluation of the urinary bladder due to decompression. D/ / 11/21/2018 19:21:47 Herb Whipple MD / [facility] Interpreting Provider: Herb Whipple MD Abdomen/Pelvis CT 11/22/18 15:00 IMPRESSION: 1. Multiple solid and sub solid subcentimeter pulmonary nodules. 2. Mediastinal adenopathy, likely reactive. 3. Splenomegaly. RECOMMENDATION: Fleischner Society guidelines for follow-up and management of incidentally detected subsolid pulmonary nodules: Multiple subsolid nodules > than or equal to [address] mm - [address] at 3-6 months. Subsequent management based on the most suspicious nodule(s). D/ / Berry Richardson MD / Berry Richardson MD Interpreting Provider: Berry Richardson MD Chest CT 11/22/18 15:00 IMPRESSION: 1. Multiple solid and sub solid subcentimeter pulmonary nodules. 2. Mediastinal adenopathy, likely reactive. 3. Splenomegaly. RECOMMENDATION: Fleischner Society guidelines for follow-up and management of incidentally detected subsolid pulmonary nodules: Multiple subsolid nodules > than or equal to 6 mm - CT at 3-6 months. Subsequent management based on the most suspicious nodule(s). D/ / Berry Richardson MD / Berry Richardson MD Interpreting Provider: Berry Richardson MD Shoulder CT 11/23/18 12:00 IMPRESSION: No CT evidence of septic arthritis. Mild subcutaneous edema about the right shoulder, consider mild cellulitis. No abscess. D/ / 11/23/2018 13:28:19 Joey Wright MD / Suellen [facility]ward Interpreting Provider: Joey Wright MD Date of admission: 11/22/18 14:47 Primary care physician: PCP NONE Consults: 11/21/18 11:54 Consult to Nephrology [CONS] Routine Consulting Provider: Kidney Mely/IGGY/LISA/KAYLENE Reason for Consult: ROSIE/Hyperuricemia Call Completed: Yes 11/22/18 Consult to Pulmonology [CONS] Routine Consulting Provider: Pulm Crit Care & Sleep [place] Reason for Consult: Sepsis Time Notified: 07:04 Call Completed: Yes 11/22/18 10:01 Consult to Infectious Diseases [CONS] Routine Consulting Provider: Infectious Disease Mely Reason for Consult: Staph Bacteremia from unclear source Time Notified: 10:02 Call Completed: Yes 11/23/18 08:23 Consult to Orthopedic Surgery [CONS] Routine Consulting Provider: Michel Kenny Reason for Consult: R/o septic joint vs gout flare, right shoulder Call Completed: Yes 11/23/18 12:00 Consult to Interventional Radiology [CONS] Stat Consulting Provider: Radiology Interventional Cols Reason for Consult: Rule out Right septic shoulder Time Notified: 12:04 Call Completed: Yes 11/24/18 08:15 Consult to Occupational Therapy [CONS] Routine Comment: Evaluate, develop and implement POC Reason for Consult: weakness, mobility Does patient have active BEDREST order?: No Is patient medically & hemodynamically stable?: Yes Patient assessed for mobility or mobilized this visit?: No Consult to Physical Therapy [CONS] Routine Comment: Evaluate, develop and implement POC Reason for Consult: weakness, mobility Does patient have active BEDREST order?: No Is patient medically & hemodynamically stable?: Yes Patient assessed for mobility or mobilized this visit?: No 11/24/18 08:21 Consult to Interventional Radiology [CONS] Stat Consulting Provider: Radiology Interventional Cols Reason for Consult: r/o septic shoulder Call Completed: Yes Discharging clinician: Herb Conner Anticipated date of discharge: 11/24/18 - Patient Status Disposition: Transfer Critical Access Hosp Condition: Fair Functional capacity at discharge: independent ambulation Overall status at discharge: patient is not back to baseline - Discharge Instructions Follow Up With: NONE,PCP [Primary Care Provider] - - Hospital Course Hospital course: Mr. Tineo is a 48 year old male with past medical history of heart failure with reduced ejection fraction status post ICD in 2006, hypertension, atrial fibrillation presents to emergency department with 3 days of nausea, vomiting, diarrhea. Vital signs were significant for an isolated fever of 102 and tachypnea on presentation which is since resolved. Patient was found to have an acute kidney injury with a creatinine of 3.92 on presentation. Leukocytosis at 12.4 also noted and a metabolic acidosis with a bicarbonate of 16. Troponin was elevated at 0.09 and adynamic trending. Blood cultures were obtained emergency department and more positive for Staphylococcus aureus which was pansensitive. Blood cultures were positive 2 on 11/21 and again positive 2 on 11/23. Most likely source at this time is a vegetation which was demonstrated on LUIS on 11/24/18. Vegetation was measured to be approximately 15 x 5 mm and located on the RA lead. Infectious disease has been following and patient is being treated with Ancef. Kidney function has been trended improved with vigorous fluid repletion. Given the nature of the vegetation and at this facility does not place or replace ICDs, [facility] was contacted per patient's preference. Information was given to triage nurse will contact with . Accepted and pending discharge. Patient aware and agreeable. - Time Spent with Patient Total time spent providing and/or coordinating discharge services: Physical Examination Vital Signs: Vital Signs, Last 4 Hours Pulse Resp BP Pulse Ox 11/24/18 15:00 68 16 128/73 94 General appearance: no acute distress Eyes: nonicteric ENT: oropharynx moist Neck: supple Effort: normal Inspection: normal Auscultation: bilateral: clear Cardiovascular: irregular rhythm Gastrointestinal: normoactive bowel sounds, soft, non-tender Integumentary: normal Extremities: no cyanosis, no edema, no clubbing, pink and warm, pulses normal Musculoskeletal: no deformities, joint tenderness (right shoulder) normal mental status, non-focal exam, CN II-XII normal mood appropriate, affect normal <John Lainez M - Last Filed: 11/25/18 09:29> Orders not resulted at time of discharge: Pending orders 11/23/18 04:33 Culture,Blood [BC] AM 0400 11/23/18 12:00 Culture,Anaerobic [RM] Stat Culture,Body Fluid [RM] Stat Gram Stain [RM] Stat Date of Encounter: 11/25/18 Labs on day of discharge: Labs from last 24 hours 11/24/18 11/24/18 19:45 11:09 POC Glucose 91 86 Preliminary micro results at discharge 11/23/18 04:23 Blood Culture - Preliminary Peripheral Venipuncture Staphylococcus aureus - Impressions ITS Impressions Chest X-Ray 11/20/18 16:36 IMPRESSION: Cardiomegaly. No radiographic evidence of acute pulmonary disease. D/ / Malick Murphy / Malick Murphy Interpreting Provider: Malick Murphy Echocardiogram 11/20/18 21:08 Impressions: LVEF 35-40%. Moderate global left ventricular systolic dysfunction. Mild concentric left ventricular hypertrophy. Indeterminate diastolic function. Moderately dilated left atrium. Normal right ventricular structure and function. No significant valvular dysfunction. No pulmonary hypertension. Left Ventricular Wall Motion: Rest Echo Findings The apex, apical inferior, mid inferior, basal inferior, apical anterior, mid anterior, basal anterior, apical septal, mid inferior septal, basal inferior septal, apical lateral, mid anterior lateral, basal anterior lateral, mid anterior septal, mid inferior lateral, basal anterior septal and basal inferior lateral brand were hypokinetic. Findings: Study Quality * Technically adequate exam. ECG Findings * Paced rhythm. Left Ventricle * LVEF 35-40%. * Normal LV chamber size. * Mild concentric left ventricular hypertrophy. * Moderate global left ventricular systolic dysfunction. * Indeterminate diastolic function. * Definity echo contrast was not used. Right Ventricle * Normal right ventricular structure and function. Left Atrium * Moderately dilated left atrium. Right Atrium * Normal right atrial size. Interatrial Septum * Interatrial septum not well evaluated. Aortic Valve * Aortic valve not well visualized. * No aortic stenosis. * Trace aortic regurgitation. Mitral Valve * Mitral valve not well visualized. * No mitral stenosis. * No mitral regurgitation. Tricuspid Valve * Tricuspid valve not well visualized. * No tricuspid stenosis. * Trace tricuspid regurgitation. * Estimated RVSP is 32 mmHg. * Estimated RA pressure is 3 mmHg. * No pulmonary hypertension. Pulmonic Valve * Pulmonic valve is not well visualized. * No pulmonic stenosis. * No pulmonic regurgitation. Aorta * Normally sized aortic root. Pericardium * The pericardium appears normal. IVC * Normal IVC dimensions and inspiratory collapse. Device lead * A device lead was visualized in the right atrium and right ventricle. Retroperitoneum Ultrasound 11/21/18 16:00 IMPRESSION: Normal sonographic appearance of the kidneys. Nondiagnostic evaluation of the urinary bladder due to decompression. D/ : / 11/21/2018 19:21:47 [facility] Provider: Herb Whipple MD Abdomen/Pelvis CT 11/22/18 15:00 IMPRESSION: 1. Multiple solid and sub solid subcentimeter pulmonary nodules. 2. Mediastinal adenopathy, likely reactive. 3. Splenomegaly. RECOMMENDATION: Fleischner Society guidelines for follow-up and management of incidentally detected subsolid pulmonary nodules: Multiple subsolid nodules > than or equal to 6 mm - CT at 3-6 months. Subsequent management based on the most suspicious nodule(s). D/ / Berry Richardson MD / Berry Richardson MD Interpreting Provider: Berry Richardson MD Chest CT 11/22/18 15:00 IMPRESSION: 1. Multiple solid and sub solid subcentimeter pulmonary nodules. 2. Mediastinal adenopathy, likely reactive. 3. Splenomegaly. RECOMMENDATION: Fleischner Society guidelines for follow-up and management of incidentally detected subsolid pulmonary nodules: Multiple subsolid nodules > than or equal to 6 mm - CT at 3-6 months. Subsequent management based on the most suspicious nodule(s). D/ / Berry Richardson MD / Berry Richardson MD Interpreting Provider: Berry Richardson MD Shoulder CT 11/23/18 12:00 IMPRESSION: No CT evidence of septic arthritis. Mild subcutaneous edema about the right shoulder, consider mild cellulitis. No abscess. D/ / 11/23/2018 13:28:19 Joey Wright MD / Suellen Hayward Interpreting Provider: Joey Wright MD Date of admission: 11/22/18 14:47 Primary care physician: PCP NONE Consults: 11/21/18 11:54 Consult to Nephrology [CONS] Routine Consulting Provider: Kidney [place]/IGGY/LISA/KAYLENE Reason for Consult: ROSIE/Hyperuricemia Call Completed: Yes 11/22/18 Consult to Pulmonology [CONS] Routine Consulting Provider: Pulm Crit Care & Sleep [place] Reason for Consult: Sepsis Time Notified: 07:04 Call Completed: Yes 11/22/18 10:01 Consult to Infectious Diseases [CONS] Routine Consulting Provider: Infectious Disease Mely Reason for Consult: Staph Bacteremia from unclear source Time Notified: 10:02 Call Completed: Yes 11/23/18 08:23 Consult to Orthopedic Surgery [CONS] Routine Consulting Provider: Michel Kenny Reason for Consult: R/o septic joint vs gout flare, right shoulder Call Completed: Yes 11/23/18 12:00 Consult to Interventional Radiology [CONS] Stat Consulting Provider: Radiology Interventional Cols Reason for Consult: Rule out Right septic shoulder Time Notified: 12:04 Call Completed: Yes 11/24/18 08:15 Consult to Occupational Therapy [CONS] Routine Comment: Evaluate, develop and implement POC Reason for Consult: weakness, mobility Does patient have active BEDREST order?: No Is patient medically & hemodynamically stable?: Yes Patient assessed for mobility or mobilized this visit?: No Consult to Physical Therapy [CONS] Routine Comment: Evaluate, develop and implement POC Reason for Consult: weakness, mobility Does patient have active BEDREST order?: No Is patient medically & hemodynamically stable?: Yes Patient assessed for mobility or mobilized this visit?: No 11/24/18 08:21 Consult to Interventional Radiology [CONS] Stat Consulting Provider: Radiology Interventional Cols Reason for Consult: r/o septic shoulder Call Completed: Yes - Hospital Course Hospital course: Mr. Tineo is a 48 year old male - Time Spent with Patient Total time spent providing and/or coordinating discharge services: - Attending Attestation This documentation was done on 11/25/2018, however discharge was discussed with the resident on 11/24/2018. I examined this patient and my medical decision-making was reviewed with the Resident Physician. I agree with the documented findings, disposition and treatment plan as described except to the extent set forth below. This is a pleasant 48-year-old male who has congestive heart failure and ICD was having persistent bacteremia and also right shoulder pain and workup was positive for vegetation on his ICD wires and patient was transferred to [place] for further management. Patient has multiple comorbidities and from pulmonary standpoint he also has history of obstructive sleep apnea and he was told to follow-up as outpatient for management for sleep disorder breathing.
--- NOTE | 2018-11-24 17:24 | Electrocardiograph Report ---
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
== END 2018-11-24 21:05 | disposition critical access hospital (66) | DRG 871 ==
LOC: EMEROOARM 16:04 → 2ANU 16:04 → SUATTDRO 19:28 → 2ANU 20:52 → ICNU 11-22 16:39
PROVIDERS: ADMIT Internal Medicine; ATTEND Internal Medicine